=== PATIENT | male | born 1940 | race Caucasian/White ===

== ENCOUNTER 2022-02-25 06:45 | Inpatient (IN) | payer MEDICARE, OTHER, SELFPAY ==
[2022-02-25] VITALS (9 sets, daily range): BP systolic 101–146; BP diastolic 52–77; PULSE 67–121; RESP 15–23; TEMP 36.2–37.2; O2SAT 92–100; BMI 24.8
--- NOTE | ~2022-02-25 | XR_ITS ---
EXAMINATION: XR lumbar puncture diagnostic DATE: 02/26/2022 09:57 INDICATION: Altered mental status TECHNIQUE: The procedure including the risks and benefits was discussed with the patient's Christine Luna. Risks discussed included spinal headache, cerebrospinal fluid leak, bleeding, and infectio n. She understood the risks and agreed to proceed. A timeout was performed to verify the patient's name, date of , and procedure to be performed. The skin overlying the L4-L5 level was prepped and draped in usual sterile fashion. Subcutaneous 1% lidocaine was used for local anesthesia. A 20 gauge spinal needle was advanced under fluoroscopic guidance. The needle was removed and the entry si te was cleaned and dressed. There were no immediate complications. A total of 1 fluoroscopic image(s ) were obtained. The amount of fluoroscopy time used during this procedure was 0.1 minutes. Along the procedure the patient was returned to the floor in unchanged condition. FINDINGS: Real-time fluoroscopy demonstrates the needle at the L4-5 level. Opening pressure was 13 cm water. (Normal range is variably defined as 6-20 cm water and up to 25 cm water in obese patients. P ressure >25 cm water is one of the modified Dandy criteria for idiopathic intracranial hypertension). 15 mL of clear, colorless fluid was collected in 4 tubes. IMPRESSION: 1. Successful fluoro-guided lumbar puncture with normal opening pressure of 13 cm water. Reviewed, dictated and finalized at location A.
--- NOTE | ~2022-02-25 | CT_ITS ---
EXAMINATION: CTA chest PE protocol DATE: 02/25/2022 08:48 INDICATION: COVID positive. Elevated d-dimer. TECHNIQUE: Computed tomography (CT) pulmonary angiogram of the chest was performed with 100 mL Omnipa que-350 intravenous contrast. Additional 3D reconstructions utilizing coronal maximum intensity proje ction (MIP) were performed. Automated exposure control and iterative reconstruction technique were em ployed. The dose-length product was 458.88 mGy-cm. COMPARISON: None FINDINGS: Excellent contrast opacification of the pulmonary arteries. There is moderate streak artifact from de nse contrast in the superior vena cava and right atrium. Mild scattered respiratory motion artifact. Together this mildly decreases sensitivity in some of the smaller subsegmental pulmonary arteries. No definite pulmonary embolism. Small lung volumes. Irregular septal lines with groundglass opacities a nd honeycombing in both lungs with peripheral and lower lung predominance. No pleural effusion or pne umothorax. Mild cardiomegaly. No pericardial effusion. Atherosclerotic coronary artery calcifications . Thoracic aorta is normal in caliber with no dissection. Mild mediastinal and right hilar lymphadeno krista which is most likely reactive. Diffuse edematous wall thickening of the esophagus consistent wi th esophagitis. Mild thoracic spondylosis. IMPRESSION: 1. No pulmonary embolism. Sensitivity mildly decreased in some of the smaller subsegmental pulmonary arteries due to combination of respiratory motion and streak artifact. 2. Small lung volumes with peripheral and lower lung predominant lung disease with honeycombing which appears to been present but to a significantly lesser degree on the CT abdomen dated 11/20/2016 consi stent with progression of usual interstitial pneumonia (UIP) pattern chronic interstitial lung diseas e. Differential includes mild pulmonary edema or pneumonia superimposed over the prior chronic lung d isease. 3. Prominent diffuse esophageal wall thickening consistent with esophagitis. The most likely either i nfectious or due to reflux. 4. Mild cardiomegaly. Reviewed, dictated and finalized at location A. IMPRESSION: 1. No pulmonary embolism. Sensitivity mildly decreased in some of the smaller s ubsegmental pulmonary arteries due to combination of respiratory motion and str eak artifact. 2. Small lung volumes with peripheral and lower lung predominant lung disease w ith honeycombing which appears to been present but to a significantly lesser de gree on the CT abdomen dated 11/20/2016 consistent with progression of usual int erstitial pneumonia (UIP) pattern chronic interstitial lung disease. Differenti al includes mild pulmonary edema or pneumonia superimposed over the prior chron ic lung disease. 3. Prominent diffuse esophageal wall thickening consistent with esophagitis. Th e most likely either infectious or due to reflux. 4. Mild cardiomegaly.
--- NOTE | ~2022-02-25 | CT_ITS ---
EXAMINATION: CT brain wo con DATE: 02/25/2022 08:48 INDICATION: Head trauma TECHNIQUE: Computed tomography (CT) of the head was performed without intravenous contrast. Sagittal and coronal reconstructions were performed. The mA was adjusted according to patient size. Iterative reconstruction technique was employed. The dose-length product was 605.33 mGy-cm. COMPARISON: None FINDINGS: Small left frontal scalp hematoma. No fracture. No acute intracranial hemorrhage, acute infarction or abnormal extra axial fluid collection. There is moderate scattered white matter hypoattenuation cons istent with chronic small vessel ischemic disease. Symmetric prominence of the sulci and ventricles c onsistent with moderate age-appropriate diffuse cerebral volume loss. No mass/mass effect. Mild scatt ered mucosal thickening throughout the paranasal sinuses with minimal dependently layering fluid in t he left maxillary and left sphenoid sinuses. The orbits and mastoid air cells are normal. IMPRESSION: 1. No fracture or acute intracranial process. 2. Age-related changes including moderate diffuse volume loss and moderate scattered white matter hyp oattenuation consistent with chronic small vessel ischemic disease. Reviewed, dictated and finalized at location A. IMPRESSION: 1. No fracture or acute intracranial process. 2. Age-related changes including moderate diffuse volume loss and moderate scat tered white matter hypoattenuation consistent with chronic small vessel ischemi c disease.
--- NOTE | ~2022-02-25 | XR_ITS ---
EXAMINATION: XR chest 1V portable DATE: 02/25/2022 07:57 INDICATION: COVID positive. Weakness. TECHNIQUE: frontal view of the chest was obtained. COMPARISON: None FINDINGS: Small lung volumes. Bilateral mild reticular and patchy groundglass opacities with peripheral predomi nance in the right lung and in the left lower lung zone and left suprahilar region. No pleural effusi on or pneumothorax. The cardiomediastinal silhouette is within normal limits for AP technique. IMPRESSION: 1. Small lung volumes with scattered mild patchy bilateral opacities which could represent pneumonia or, atelectasis/scarring, pulmonary edema or some combination thereof. Reviewed, dictated and finalized at location A. IMPRESSION: 1. Small lung volumes with scattered mild patchy bilateral opacities which coul d represent pneumonia or, atelectasis/scarring, pulmonary edema or some combina tion thereof.
--- NOTE | 2022-02-25 07:01 | ECG_ITS ---
Measurements Intervals [place] Rate: 116 P: 30 WV: 198 QRS: -40 QRSD: 70 T: 34 QT: 429 QTc: 598 Interpretive Statements SINUS TACHYCARDIA CONSIDER ANTERIOR INFARCT, AGE INDETERMINATE CONSIDER INFERIOR INFARCT, AGE INDETERMINATE BORDERLINE ST-T WAVE ABNORMALITY- HIGH LATERAL LEADS BASELINE ARTIFACT- I, II, AVR, AVL ABNORMAL ECG Electronically Signed On 02-25-2022 7:58:19 CDT by Иван Teixeira D.O.
--- NOTE | 2022-02-25 07:09 | ED.WEAKNESS ---
HPI - Weakness General Chief complaint: Weakness Stated complaint: fall, generalized weakness, covid + Time Seen by Provider: 02/25/22 07:06 History of Present Illness HPI Narrative: Patient is an 81-year-old male with history of Alzheimer's dementia presenting to the emergency department for evaluation of weakness. Patient was diagnosed with COVID by at home testing 2 days ago by his who is also COVID-positive. Reportedly, states that he has been unable to ambulate over the past 48 hours. She states at baseline he is able to ambulate and complete most of his ADLs although his dementia is quite severe. Thus, patient is currently oriented to person, can identify this is a hospital but is unable to provide any additional history. Patient's states that he has been reporting significant sore throat, congestion. He has been taking Mucinex without much improvement in his symptoms. No nausea, vomiting but significantly decreased oral intake over the past 2 days. Patient is vaccinated for COVID per . No diarrhea. She does report a low-grade fever at times. Related Data Allergies Allergy/AdvReac Type Severity Reaction Status Date / Time No Known Allergies Allergy Verified 02/25/22 06:55 Review of Systems Review of Systems: Limited secondary to dementia [facility] Social History Social History (Updated 02/25/22 @ 08:01 by Katerina Laboy MD) Smoking status: Never smoker Alcohol intake: never Substance use: never Living arrangements: with family Gender identity (if verbalized by the patient): Male Exam Narrative: GENERAL: Awake, alert, conversant HEAD: Normocephalic, atraumatic. EYES: PERRLA and EOMI. ENT: Nares clear, no rhinorrhea or epistaxis. Mucous membranes dry NECK: Supple. CHEST: Mildly tachypneic, no respiratory distress, coarse breath sounds with upper airway rhonchi bilaterally HEART: Tachycardic rate, sinus rhythm ABDOMEN:Non distended, non tender EXTREMITIES: Normal range of motion. No edema. SKIN: Pale, warm, dry, no rash. NEURO:No focal deficits. Alert and oriented x2 Course Vital Signs Vital signs: Vital Signs Temperature 37.2 C 02/25/22 06:44 Pulse Rate 121 H 02/25/22 06:44 Respiratory Rate 23 H 02/25/22 06:44 Blood Pressure 138/77 02/25/22 06:44 Pulse Oximetry 97 02/25/22 06:44 Oxygen Delivery Room Air 02/25/22 06:44 Temperature 37.2 C 02/25/22 06:44 Pulse Rate 67 02/25/22 10:40 Respiratory Rate 16 02/25/22 10:40 Blood Pressure 105/52 L 02/25/22 10:40 Pulse Oximetry 98 02/25/22 10:40 Oxygen Delivery Room Air 02/25/22 06:59 MDM - Weakness MDM Narrative Medical decision making narrative: Patient presenting for evaluation of weakness in the setting of recent COVID diagnosis. At the time of assessment, patient is tachycardic and mildly tachypneic. Patient with coarse breath sounds without significant crackles or wheezing. Differential includes COVID-pneumonia, bacterial pneumonia, PE, electrolyte derangement, rhabdomyolysis, urinary tract infection. IV access obtained and labs are drawn. Patient was given small amount IV fluids, does not appear fluid overloaded on exam. Laboratory results show no lactic acidosis, there is leukocytosis present. He is meeting SIRS criteria without focus of bacterial infection found at this point. Patient with potential bilateral opacities consistent with viral COVID illness. That would not warrant antibiotics. Patient is not hypoxic or having any severe respiratory distress or significantly increased work of breathing. CTA obtained to evaluate for PE of which there is none. There is chronic appearing changes of interstitial lung disease based on CT imaging. Currently awaiting urinalysis, will check a CK to ensure no component of rhabdomyolysis. Plan for admission, PT/OT consultation given decreased mobility. CK not critically elevated. BNP not consistent with acute CHF. This is all likely s
[2022-02-25 07:40] LABS: Basophils Absolute Auto 0.1 K/mm3 (0.0-0.1); Basophils Percent Auto 0.4 % (0.2-1.2); Hematocrit 41.1 % (42.0-52.0); Immature Granulocyte Absolute 0.07 K/mm3 (0.00-0.031); Immature Granulocyte Percent A 0.5 % (0-0.5); Lymphocytes Absolute Auto 2.86 K/mm3 (0.9-3.2); Lymphocytes Percent Auto 20.1 % (18.3-44.2); Mean Corpuscular HGB Conc 31.6 g/dl (32-36); Mean Corpuscular Hemoglobin 30.1 pg (26-34); Mean Corpuscular Volume 95.1 fl (80-100); Mean Platelet Volume 9.7 fl (7.4-10.4); Monocytes Percent Auto 13.7 % (2.6-8.5); Neutrophils Absolute Auto 9.3 K/mm3 (1.3-6.7); Neutrophils Percent Auto 65.3 % (45.5-73.1); Platelet Count Result 211 k/mm3 (150-375); Red Blood Count 4.32 M/mm3 (4.6-6.20); Red Cell Distribution Width 13.4 % (11.5-14.5); White Blood Count 14.3 K/mm3 (4.5-10.0)
[2022-02-25] MEDS: SODIUM CHLORIDE 0.9% IV 500 ML 999 ML IV CONT (07:40)
[2022-02-25 07:49] LABS: INR 1.1; Prothrombin Time 13.4 Seconds (11.1-14.7)
[2022-02-25 07:50] LABS: Partial Thromboplastin Time 34.7 SECONDS (22.3-36.8)
[2022-02-25 07:54] LABS: Alanine Aminotransferase 27 U/L (6-50); Albumin Level 4.3 g/dL (3.5-5.1); Alkaline Phosphatase 106 U/L (38-126); Anion Gap 11 mmol/L (8-16); Aspartate Amino Transferase 35 U/L (17-59); Bilirubin,Total 0.8 mg/dL (0.2-1.3); Blood Urea Nitrogen 15 mg/dL (9-20); Calcium 9.4 mg/dL (8.4-10.2); Carbon Dioxide 26 mmol/L (22-30); Chloride 100 mmol/L (98-107); Estimated CRCL calculation 65 ml/min; Estimated Glomerular Filt Rate > 60; Glucose 198 mg/dL (65-110); Potassium 3.9 mmol/L (3.4-5.0); Sodium 137 mmol/L (137-145)
[2022-02-25 08:05] LABS: Troponin I 0.018 ng/mL (0.000-0.034)
[2022-02-25 08:08] LABS: D Dimer 0.79 ug/mL (<0.48)
[2022-02-25 08:23] LABS: Thyroid Stimulating Hormone 0.601 uIU/mL (0.465-4.680)
--- NOTE | 2022-02-25 09:13 | PC.NURSE ---
I did not do the EKG on this pt. EMR Tracker was not recording EKG as done (check lai was red). Charted so tracker would recognize it as being done.
--- NOTE | 2022-02-25 10:23 | PM.IMHP ---
H&P: HPI History of Present Illness Date/Time: 02/25/22 10:23 Chief Complaint: weakness Narrative: 81M with a past medical history of dementia, benign prostatic hyperplasia, diabetes and hyperlipidemia who presents to the emergency department for confusion and weakness. Patient has dementia and is confused so history obtained from , Rona Payne. Last couple of days patient has been incoherent and had sore throat. Patient has not been eating very much. Also had sudden onset urinary incontinence. says he was also not able to get up and walk. Had a fall this morning and was unable to get him up so she brought him to the emergency department. reports patient has had cough, sore throat, rhinorrhea, weakness and confusion. Says patient has been taking off his clothes and she has been unable to get the patient to take his medicine. At baseline, patient is only alert and oriented to self. He walks and can feed himself. He requires assistance to bathe. says he already sounds better after a call she had from the patient. says the patient has never been sick and his diabetes, cholesterol and prostate medication are prescribed by the geriatric psychiatrist at the [place]. PCP follows at the [place] and sees a geriatric psychiatrist. Had Pfizer COVID19 vaccine and had 1 additional dose. also had pfizer vaccine and 1 additional dose. She is at home COVID19 positive. is MPOA and wishes for the patient to be DNR. In the ED, COVID19 positive, leukocytosis 14.3, UA + glucose and ketones, D-dimer elevated --->CTA chest no PE. BNP 350. 1LNS given. 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 Smoking status: Former smoker Tobacco type: cigarettes Alcohol intake: never Substance use: never Living arrangements: with family Gender identity (if verbalized by the patient): Male Spiritual care concerns: No Meds Home Medications and Allergies Home Medications Medication Instructions Recorded Confirmed Type Cyanacobalamin 1,000 mg BYMOUTH DAILY 02/25/22 02/25/22 History atorvastatin 20 mg BYMOUTH HS 02/25/22 02/25/22 History cholecalciferol (vitamin D3) 25 25 mcg PO HS 02/25/22 02/25/22 History mcg (1,000 unit) tablet (Vitamin D3) empagliflozin 25 mg BYMOUTH DAILY 02/25/22 02/25/22 History finasteride 5 mg BYMOUTH 02/25/22 02/25/22 History gabapentin 100 mg tablet 100 mg PO BID 02/25/22 02/25/22 History insulin glargine 100 unit/mL 7 unit subcut 02/25/22 02/25/22 History subcutaneous cartridge metformin 1,000 mg tablet 1,000 mg PO BID 02/25/22 02/25/22 History Allergies Allergy/AdvReac Type Severity Reaction Status Date / Time No Known Allergies Allergy Verified 02/25/22 13:17 Vital Signs Vital Signs - 24 hr 02/25/22 06:44 02/25/22 06:59 02/25/22 07:01 Temperature 99.0 F Pulse Rate 121 H 111 H Respiratory Rate 23 H 18 Blood Pressure 138/77 146/71 H Pulse Oximetry 97 99 97 Oxygen Delivery Room Air Room Air 02/25/22 10:00 Temperature Pulse Rate 84 Respiratory Rate 15 Blood Pressure 105/52 L Pulse Oximetry 92 Oxygen Delivery Exam Narrative: GENERAL: NAD, cooperative HEENT: Normocephalic, atraumatic, anicteric, nares clear, oropharynx moist and clear, dentition ok NECK:Suppleno thyromegaly, no l
[2022-02-25 10:56] LABS: Appearance Urine Clear (Clear); Bilirubin Urine Negative (Negative); Color Urine Yellow (Yellow); Glucose Urine UA 2+ mg/dL (Negative); Ketones Urine 2+ mg/dL (Negative); Leukocyte Esterase Ur Negative LEU/UL (Negative); Nitrate Urine Negative (Negative); Protein Urine Trace mg/dL (Negative); Urobilinogen Urine 0.2 mg/dL (<2.0)
[2022-02-25 11:01] LABS: Bacteria Urine Trace /hpf; Mucus Urine Rare /lpf; RBC Urine 0-2 /hpf (0-2); WBC Urine 0-3 /hpf
[2022-02-25 11:04] LABS: Creatine Kinase 350 U/L (55-170)
[2022-02-25 11:06] LABS: Add Urine Microscopic? YES; Blood Urine Trace-Intact (Negative)
[2022-02-25 11:09] LABS: NT Pro B Type Natriuretic Pept 406 pg/mL (5-100)
[2022-02-25 12:57] LABS: SARS-CoV-2 RNA PCR Positive
--- NOTE | 2022-02-25 13:00 | ADMGEN ---
This patient, Jimmy Payne, was admitted to 3 [facility] Surg Room 333-01. Patient/family oriented to hospital policies and general routines including ID bracelet, bed and alarms, visiting hours, pain management, procedures, bathroom and other care routines, personal items, smoking policy, room service/diet, and visiting hours. Information on how to activate the Rapid Response Team has been discussed. Patient/Family are encouraged to report perceived risks to care and to ask questions if they do not understand what they are told or what they should do.
[2022-02-25] MEDS: GABAPENTIN 100 MG CAPSULE PO (18:28)
[2022-02-25 20:19] LABS: Ammonia < 9 umol/L (9-30)
[2022-02-25] MEDS: INSULIN GLARGINE (*BKC) 100 UNITS/ML 7 UNITS SUB-Q (20:38)
[2022-02-25] MEDS: cefTRIAXone 2 GM in SODIUM CHLORIDE 0.9% IV 100 ML 200 ML IVPB (20:38)
[2022-02-25] MEDS: FINASTERIDE 5 MG TABLET BY MOUTH (20:47)
[2022-02-25] MEDS: CHOLECALCIFEROL 1,000 UNITS TABLET 1000 UNITS PO (20:47)
[2022-02-25] MEDS: ATORVASTATIN 20 MG TABLET BY MOUTH (20:47)
[2022-02-25 20:48] LABS: Procalcitonin 0.3 ng/mL
[2022-02-25 21:01] LABS: HIV 1/2 Ab P24 Ag Result Negative (Negative)
[2022-02-25 21:04] LABS: Glucose Point of Care 396 mg/dl (65-105)
[2022-02-25] MEDS: AMPICILLIN 2 GM/NS 100 ML 2 GM/100 ML BAG IVPB (22:43)
[2022-02-26] VITALS (8 sets, daily range): BP systolic 105–139; BP diastolic 49–69; PULSE 50–72; RESP 15–18; TEMP 35.6–36.2; O2SAT 95–100
--- NOTE | 2022-02-26 | ECHO_ITS ---
Patient Info Name: Jimmy Payne Age: 81 years : 1940 Gender: Male Ht: 67 in Wt: 158 lbs BSA: 1.85 m2 HR: 59 bpm BP: 131 / 62 mmHg Heart Rhythm: Sinus Rhythm Technical Quality: Fair Exam Date: 02/26/2022 10:22 AM Exam Location: [facility] Patient Status: Inpatient Admit Date: 02/25/2022 Staff Ordering Physician: Soledad Cavanaugh MD Neon Technician: Michelle Sanders RDCS Attending Provider: Keshav Dowd MD Referring Physician: Afshan MERCADO; Exam Type: CA echo doppler color flow Study Info Indications - crackles on lung exam and cardiomegaly on cxr Complete two-dimensional, color flow and Doppler transthoracic echocardiogram is performed. Summary 1. Complete two-dimensional, color flow and Doppler transthoracic echocardiogram is performed. 2. Normal left ventricular size. Mild asymmetric septal hypertrophy with the septum of 1.4 cm2; however no evidence of outflow tract obstruction. No segmental wall motion abnormalities. Grade 2 diastolic dysfunction is present. Ejection fraction is 60%. 3. Left atrial chamber dimension is moderately enlarged. 4. There is moderate aortic valve calcification with mild aortic stenosis present. The mean gradient is 13 mmHg and the valve area is 1.4 cm2. 5. Mild pulmonary hypertension, estimated pulmonary arterial systolic pressure is 42 mmHg. 6. There is mild tricuspid valve regurgitation. 7. Probable normal sinus rhythm. Left Ventricle Left ventricular chamber dimension is normal. Left ventricular systolic function is normal, estimated at 55-60%. There is mild asymmetric septal increased left ventricular wall thickness. Left ventricular septal wall motion is normal. The left ventricular diastolic function is grade II diastolic dysfunction. Right Ventricle Right ventricular chamber dimension is normal. Right ventricular systolic function is normal. Left Atria Left atrial chamber dimension is moderately enlarged. Right Atria Right atrial chamber dimension is normal. Aortic Valve The aortic valve is trileaflet. There is mild aortic valve sclerosis. There is no aortic valve stenosis. There is trace aortic valve regurgitation. There is moderate aortic valve calcification with mild aortic stenosis present. The mean gradient is 13 mmHg and the valve area is 1.4 cm2. Pulmonic Valve The pulmonic valve is normal. There is no pulmonic valve stenosis. There is trace pulmonic regurgitation. Mitral Valve The mitral valve has thickened leaflets. There is no mitral valve stenosis. There is trace mitral valve regurgitation. Tricuspid Valve The tricuspid valve leaflets are normal. There is no significant tricuspid valve stenosis. There is mild tricuspid valve regurgitation. Mild pulmonary hypertension, estimated pulmonary arterial systolic pressure is 42 mmHg. Pericardium/Pleural The pericardium appears normal. There is no pericardial effusion. Inferior Vena Cava Normal inferior vena cava with >50% collapse upon inspiration consistent with Empty right atrial pressure, 10 mmHg. Aorta The aortic root size at the sinus of Valsalva is normal. The prox ascending aorta size is normal. Left Ventricular Outflow Tract Name Value Normal LVOT 2D
[2022-02-26] MEDS: AMPICILLIN 2 GM/NS 100 ML 2 GM/100 ML BAG IVPB ×5 (02:19→22:07)
[2022-02-26] MEDS: ACETAMINOPHEN 325 MG TABLET 650 MG PO (02:23)
[2022-02-26 07:01] LABS: Basophils Percent Auto 0.2 % (0.2-1.2); Hematocrit 36.7 % (42.0-52.0); Hemoglobin 11.9 g/dL (14.0-18.0); Immature Granulocyte Absolute 0.08 K/mm3 (0.00-0.031); Immature Granulocyte Percent A 0.6 % (0-0.5); Lymphocytes Absolute Auto 1.12 K/mm3 (0.9-3.2); Lymphocytes Percent Auto 8.8 % (18.3-44.2); Mean Corpuscular HGB Conc 32.4 g/dl (32-36); Mean Corpuscular Hemoglobin 30.5 pg (26-34); Mean Corpuscular Volume 94.1 fl (80-100); Monocytes Absolute Auto 0.5 K/mm3 (0.1-0.6); Monocytes Percent Auto 3.7 % (2.6-8.5); Neutrophils Absolute Auto 11.1 K/mm3 (1.3-6.7); Neutrophils Percent Auto 86.7 % (45.5-73.1); Platelet Count Result 202 k/mm3 (150-375); Red Cell Distribution Width 13.2 % (11.5-14.5); White Blood Count 12.8 K/mm3 (4.5-10.0)
[2022-02-26 07:05] LABS: Anion Gap 9 mmol/L (8-16); Blood Urea Nitrogen 23 mg/dL (9-20); Calcium 8.5 mg/dL (8.4-10.2); Carbon Dioxide 25 mmol/L (22-30); Chloride 102 mmol/L (98-107); Creatine Kinase 504 U/L (55-170); Estimated CRCL calculation 68 ml/min; Estimated Glomerular Filt Rate > 60; Glucose 276 mg/dL (65-110); Potassium 3.9 mmol/L (3.4-5.0); Sodium 136 mmol/L (137-145)
[2022-02-26 08:10] LABS: Glucose Point of Care 256 mg/dl (65-105)
--- NOTE | 2022-02-26 08:35 | PM.IMPN ---
Progress Note: A&P Assessment and Plan (1) Confusion: Code(s): R41.0 - Disorientation, unspecified Status: Acute Assessment and Plan: Baseline oriented to self. CT head w/ no acute findings. LFTs and electrolytes normal. TSH 0.601. CK elevated, but not extremely high. No documented hypoxia. Afebrile but does have leukocytosis. UA w/ ketones c/w poor po intake otherwise unremarkable. BCX pending. Appears to have had some improvement s/p 1L ns in ED. Tmax 99 on arrival. Lactic acid 2.0. Leukocytosis improved. Procalcitonin low. Ammonia low. LP completed - studies pending. -Continue vancomycin, ampicillin, ceftriaxone, acyclovir, dexamethasone -Will consult Neurology if no improvement (2) Leukocytosis: Code(s): D72.829 - Elevated white blood cell count, unspecified Status: Acute Assessment and Plan: BCX pending. Tmax 99.0. UA unremarkable. CT chest with consistent with progression of usual interstitial pneumonia pattern chronic interstitial lung disease, no pulmonary embolism and mild cardiomegaly. -See plan above (3) COVID-19: Code(s): U07.1 - COVID-19 Status: Acute Assessment and Plan: Adequate saturation on room air. Will monitor. (4) Hyperlipidemia: Onset Date: ~02/25/22 Code(s): E78.5 - Hyperlipidemia, unspecified Status: Acute Assessment and Plan: Takes statin at home. Continue statin. (5) Dementia: Code(s): F03.90 - Unspecified dementia without behavioral disturbance Status: Acute Assessment and Plan: Oriented to self at baseline but follows instructions and can feed himself. Slightly improved today. May get MRI brain and consult Neurology if not improved more tomorrow. (6) Weakness: Code(s): R53.1 - Weakness Status: Acute Assessment and Plan: May be related to acute illness. CK elevation worsened this morning. -1L bolus -Repeat CK in the morning (7) Diabetes: Code(s): E11.9 - Type 2 diabetes mellitus without complications Status: Acute Assessment and Plan: reports last a1c just over 8.0. Takes glargine 7 units qhs at home plus empagliflozin and Metformin. -POC TIDWM -High dose SSI -Increased glargine to 8 units qhs -Scheduled lispro 4 units TIDWM (8) Elevated brain natriuretic peptide (BNP) level: Code(s): R79.89 - Other specified abnormal findings of blood chemistry Status: Acute Assessment and Plan: Echocardiogram read pending. (9) BPH (benign prostatic hyperplasia): Code(s): N40.0 - Benign prostatic hyperplasia without lower urinary tract symptoms Status: Acute Assessment and Plan: Takes finasteride at home. Continue home medication. Additional Plan Enoxaparin dvt prophylaxis MPOA Rona Payne DNR Subjective Date/time seen: 02/26/22 08:35 Patient denies shortness of breath, difficulty breathing, chest pain. Has a cough noted during rounds. Patient denies abdominal pain. Says his birthday is 1940. Review of Systems Respiratory: Respiratory: Reports cough and Denies dyspnea Gastrointestinal: Gastrointestinal: Reports abdominal pain Exam Narrative: GENERAL: NAD, cooperative HEENT: Normocephalic, atraumatic, anicteric, nares clear, oropharynx moist and clear, dentition ok NECK:Supple CV: Normal S1, S2, RRR, No MRG RESP: No wheezes or rhonchi Abdomen: Soft, non-tender, non-distended, +BS EXTREMITIES: Warm and well perfused, no clubbing, cyanosis, or edema. SKIN: warm, dry and intact. NEURO:CN 2-12 grossly intact. Confused. Alert - knows name and today Objective Data Vital Signs Vital Signs: Vital Signs - 24 hr 02/25/22 10:00 02/25/22 10:40 02/25/22 11:51 Temperature Pulse Rate 84 67 Respiratory Rate 15 16 Blood Pressure 105/52 L 105/52 L Pulse Oximetry 92 98 Oxygen Delivery
[2022-02-26] MEDS: cefTRIAXone 2 GM in SODIUM CHLORIDE 0.9% IV 100 ML 200 ML IVPB (10:22)
[2022-02-26 10:32] LABS: Glucose CSF 164 mg/dL (40-70); Total Protein CSF 62 mg/dL (12-60)
[2022-02-26 11:51] LABS: Glucose Point of Care 405 mg/dl (65-105)
[2022-02-26 12:18] LABS: CSF source CSF
[2022-02-26 12:19] LABS: Appearance CSF Clear (Clear); Color CSF Colorless (Colorless); Lymphocytes CSF 63 % (40-80); Monocytes CSF 37 % (15-45); Nucleated Cell CSF 15 /uL (0-5); Red Blood Cell CSF 0 (0-2)
[2022-02-26] MEDS: GABAPENTIN 100 MG CAPSULE PO ×2 (12:21→17:12)
[2022-02-26] MEDS: EMPAGLIFLOZIN 25 MG TABLET BY MOUTH (12:21)
[2022-02-26] MEDS: CYANOCOBALAMIN 1,000 MCG TABLET 1000 MCG BY MOUTH (12:21)
[2022-02-26] MEDS: INSULIN HUMAN REGULAR (*BKC) 100 UNITS/ML 10 UNITS SUB-Q (12:22)
[2022-02-26] MEDS: INSULIN ASPART (*BKC) 100 UNITS/ML SUB-Q ×2 (12:22→17:06)
[2022-02-26 16:39] LABS: Glucose Point of Care 458 mg/dl (65-105)
[2022-02-26] MEDS: INSULIN GLARGINE (*BKC) 100 UNITS/ML 8 UNITS SUB-Q (21:03)
[2022-02-26] MEDS: ATORVASTATIN 20 MG TABLET BY MOUTH (21:03)
[2022-02-26] MEDS: CHOLECALCIFEROL 1,000 UNITS TABLET 1000 UNITS PO (21:03)
[2022-02-26] MEDS: FINASTERIDE 5 MG TABLET BY MOUTH (21:03)
[2022-02-26 21:21] LABS: Glucose Point of Care 329 mg/dl (65-105)
[2022-02-26] MEDS: OLANZapine 5 MG TABLET PO (21:43)
[2022-02-26] MEDS: cefTRIAXone 2 GM in SODIUM CHLORIDE 0.9% IV 100 ML IVPB (23:06)
[2022-02-27] MEDS: AMPICILLIN 2 GM/NS 100 ML 2 GM/100 ML BAG IVPB ×7 (00:05→20:38)
[2022-02-27] MEDS: OLANZapine 10 MG INJ VIAL IM (01:14)
[2022-02-27] MEDS: WATER, STERILE FOR INJECTION 10 ML VIAL XX (01:21)
[2022-02-27 06:22] LABS: Basophils Percent Auto 0.2 % (0.2-1.2); Hemoglobin 11.6 g/dL (14.0-18.0); Immature Granulocyte Percent A 0.8 % (0-0.5); Lymphocytes Percent Auto 7.6 % (18.3-44.2); Mean Corpuscular HGB Conc 30.5 g/dl (32-36); Mean Corpuscular Hemoglobin 30.1 pg (26-34); Mean Corpuscular Volume 98.7 fl (80-100); Mean Platelet Volume 9.9 fl (7.4-10.4); Monocytes Absolute Auto 0.5 K/mm3 (0.1-0.6); Monocytes Percent Auto 3.6 % (2.6-8.5); Neutrophils Absolute Auto 11.5 K/mm3 (1.3-6.7); Neutrophils Percent Auto 87.8 % (45.5-73.1); Platelet Count Result 209 k/mm3 (150-375); Red Blood Count 3.85 M/mm3 (4.6-6.20); Red Cell Distribution Width 13.1 % (11.5-14.5); White Blood Count 13.1 K/mm3 (4.5-10.0)
[2022-02-27 06:32] LABS: Anion Gap 8 mmol/L (8-16); Blood Urea Nitrogen 30 mg/dL (9-20); Calcium 8.3 mg/dL (8.4-10.2); Carbon Dioxide 24 mmol/L (22-30); Chloride 101 mmol/L (98-107); Creatine Kinase 535 U/L (55-170); Estimated CRCL calculation 54 ml/min; Estimated Glomerular Filt Rate > 60; Glucose 286 mg/dL (65-110); Potassium 3.8 mmol/L (3.4-5.0); Sodium 133 mmol/L (137-145)
[2022-02-27 08:00] VITALS: O2SAT 100
[2022-02-27 08:11] LABS: Glucose Point of Care 240 mg/dl (65-105)
--- NOTE | 2022-02-27 08:46 | PM.IMPN ---
Progress Note: A&P Assessment and Plan (1) Confusion: Code(s): R41.0 - Disorientation, unspecified Status: Acute Assessment and Plan: Baseline oriented to self. CT head w/ no acute findings. LFTs and electrolytes normal. TSH 0.601. CK elevated, but not extremely high. No documented hypoxia. Afebrile but does have leukocytosis. UA w/ ketones c/w poor po intake otherwise unremarkable. BCX pending. Appears to have had some improvement s/p 1L ns in ED. Tmax 99 on arrival. Lactic acid 2.0. Leukocytosis improved. Procalcitonin low. Ammonia low. LP completed - studies pending. -Continue vancomycin, ampicillin, ceftriaxone, acyclovir, dexamethasone -Neurology consulted (2) Leukocytosis: Code(s): D72.829 - Elevated white blood cell count, unspecified Status: Acute Assessment and Plan: Tmax 99.0. UA unremarkable. CT chest with consistent with progression of usual interstitial pneumonia pattern chronic interstitial lung disease, no pulmonary embolism and mild cardiomegaly. BCX with no growth. CSF gram stain with a few WBC and no organisms. Fungal culture and stain with no organisms so far. -See plan above (3) COVID-19: Code(s): U07.1 - COVID-19 Status: Acute Assessment and Plan: Adequate saturation on room air. Will monitor. (4) Hyperlipidemia: Onset Date: ~02/25/22 Code(s): E78.5 - Hyperlipidemia, unspecified Status: Acute Assessment and Plan: Takes statin at home. Continue statin. (5) Dementia: Code(s): F03.90 - Unspecified dementia without behavioral disturbance Status: Acute Assessment and Plan: Oriented to self at baseline but follows instructions and can feed himself. Slightly improved today. Neurology consulted. MRI brain ordered. (6) Weakness: Code(s): R53.1 - Weakness Status: Acute Assessment and Plan: Elevated but only slightly compared to yesterday. -IVF x 12 hours at 125cc/hr -Repeat CK in the morning (7) Diabetes: Code(s): E11.9 - Type 2 diabetes mellitus without complications Status: Acute Assessment and Plan: reports last a1c just over 8.0. Takes glargine 7 units qhs at home plus empagliflozin and Metformin. Improved. Will continue to monitor. -POC TIDWM -High dose SSI -Increased glargine to 8 units qhs -Scheduled lispro 4 units TIDWM (8) Elevated brain natriuretic peptide (BNP) level: Code(s): R79.89 - Other specified abnormal findings of blood chemistry Status: Acute Assessment and Plan: Echo with EF 60% with grade II diastolic dysfunction, mild aortic stenosis. HFpEF. (9) BPH (benign prostatic hyperplasia): Code(s): N40.0 - Benign prostatic hyperplasia without lower urinary tract symptoms Status: Acute Assessment and Plan: Takes finasteride at home. Continue home medication. Additional Plan Enoxaparin dvt prophylaxis MPOA Rona Payne DNR Subjective Date/time seen: 02/27/22 08:46 Patient denies having any pain. Denies abdominal pain. Denies difficulty breathing, chest pain, shortness of breath, headache, vision changes. Review of Systems Eyes: Eyes: Denies blurry vision Cardiovascular: Cardiovascular: Denies chest pain Respiratory: Respiratory: Denies dyspnea Neurologic: Reports confusion and Denies headache(s) Exam Narrative: GENERAL: NAD, cooperative HEENT: Normocephalic, atraumatic, anicteric NECK:Supple CV: Normal S1, S2, RRR, No MRG RESP: No wheezes or rhonchi Abdomen: Soft, non-tender, non-distended, +BS EXTREMITIES: Warm and well perfused, no clubbing, cyanosis, or edema. SKIN: warm, dry and intact. NEURO:CN 2-12 grossly intact. Confused. Alert - knows name and . Objective Data Vital Signs Vital Signs: Vital Signs - 24 hr 02/26/22 09:15 02/26/22 09:58 02/26/22 10:52 Abdulaziz
[2022-02-27] MEDS: SODIUM CHLORIDE 0.9% IV 1,000 ML 125 ML IV CONT (09:15)
[2022-02-27] MEDS: INSULIN ASPART (*BKC) 100 UNITS/ML SUB-Q ×6 (09:20→17:31)
[2022-02-27] MEDS: ENOXAPARIN 40 MG/0.4 ML SYRINGE SUB-Q (09:21)
[2022-02-27 11:32] LABS: Glucose Point of Care 222 mg/dl (65-105)
[2022-02-27 12:00] VITALS: BP 142/76; PULSE 53; RESP 18; TEMP 36.6; O2SAT 100
[2022-02-27] MEDS: cefTRIAXone 2 GM in SODIUM CHLORIDE 0.9% IV 100 ML 200 ML IVPB ×2 (12:53→23:43)
[2022-02-27] MEDS: OLANZapine 5 MG TABLET PO ×2 (12:53→20:40)
[2022-02-27 16:00] VITALS: BP 129/66; PULSE 86; RESP 16; TEMP 36.3; O2SAT 100
[2022-02-27 16:55] LABS: Glucose Point of Care 252 mg/dl (65-105)
[2022-02-27] MEDS: GABAPENTIN 100 MG CAPSULE PO (17:27)
[2022-02-27 19:59] VITALS: BP 116/75; PULSE 65; RESP 20; TEMP 35.6; O2SAT 98
[2022-02-27] MEDS: INSULIN GLARGINE (*BKC) 100 UNITS/ML 8 UNITS SUB-Q (20:35)
[2022-02-27] MEDS: CHOLECALCIFEROL 1,000 UNITS TABLET 1000 UNITS PO (20:40)
[2022-02-27] MEDS: ATORVASTATIN 20 MG TABLET BY MOUTH (20:40)
[2022-02-27] MEDS: FINASTERIDE 5 MG TABLET BY MOUTH (20:40)
[2022-02-27 21:15] LABS: Glucose Point of Care 244 mg/dl (65-105)
[2022-02-28] VITALS: BP 136/91; PULSE 84; RESP 18; TEMP 35.6; O2SAT 95
[2022-02-28] MEDS: SODIUM CHLORIDE 0.9% IV 1,000 ML 125 ML IV CONT (01:43)
[2022-02-28] MEDS: AMPICILLIN 2 GM/NS 100 ML 2 GM/100 ML BAG IVPB ×2 (01:44→05:07)
[2022-02-28 04:00] VITALS: BP 129/61; PULSE 42; RESP 16; TEMP 35.7; O2SAT 99
[2022-02-28 08:00] VITALS: BP 106/36; PULSE 87; RESP 16; TEMP 36; O2SAT 98
--- NOTE | 2022-02-28 08:15 | PM.IMPN ---
Progress Note: A&P Assessment and Plan (1) Confusion: Code(s): R41.0 - Disorientation, unspecified Status: Acute Assessment and Plan: Baseline oriented to self. CT head w/ no acute findings. LFTs and electrolytes normal. TSH 0.601. CK elevated, but not extremely high. No documented hypoxia. Afebrile but does have leukocytosis. UA w/ ketones c/w poor po intake otherwise unremarkable. BCX pending. Appears to have had some improvement s/p 1L ns in ED. Tmax 99 on arrival. Lactic acid 2.0. Leukocytosis improved. Procalcitonin low. Ammonia low. LP completed with cultures. Patient discussed with Neurology. If cultures remain negative for 72 hours, mathew palacio discharge patient home without antibiotics. -Disontinue vancomycin, ampicillin, ceftriaxone, acyclovir, dexamethasone -Neurology consulted - recommended starting seroquel 25 qhs -Haloperidol added for PRN (2) Leukocytosis: Code(s): D72.829 - Elevated white blood cell count, unspecified Status: Acute Assessment and Plan: Tmax 99.0. UA unremarkable. CT chest with consistent with progression of usual interstitial pneumonia pattern chronic interstitial lung disease, no pulmonary embolism and mild cardiomegaly. BCX with no growth. CSF gram stain with a few WBC and no organisms. Fungal culture and stain with no organisms so far. This has remained around 12, likely due to the dexamethasone. Plan as noted above and will monitor. (3) COVID-19: Code(s): U07.1 - COVID-19 Status: Acute Assessment and Plan: Adequate saturation on room air. Will monitor. (4) Hyperlipidemia: Onset Date: ~02/25/22 Code(s): E78.5 - Hyperlipidemia, unspecified Status: Acute Assessment and Plan: Takes statin at home. Continue statin. (5) Dementia: Code(s): F03.90 - Unspecified dementia without behavioral disturbance Status: Acute Assessment and Plan: Oriented to self at baseline but follows instructions and can feed himself. Slightly improved today. Neurology consulted. See plan as noted above. (6) Weakness: Code(s): R53.1 - Weakness Status: Acute Assessment and Plan: Elevated but only slightly compared to yesterday. Gave IVF for 12 hours. Will recheck in the morning. (7) Diabetes: Code(s): E11.9 - Type 2 diabetes mellitus without complications Status: Acute Assessment and Plan: reports last a1c just over 8.0. Takes glargine 7 units qhs at home plus empagliflozin and Metformin. Dexamethasone discontinued. Will need to decrease glargine back to 7 units and discontinue scheduled lispro in the morning. -POC TIDWM -High dose SSI -Glargine to 8 units qhs -Scheduled lispro 4 units TIDWM (8) Elevated brain natriuretic peptide (BNP) level: Code(s): R79.89 - Other specified abnormal findings of blood chemistry Status: Acute Assessment and Plan: Echo with EF 60% with grade II diastolic dysfunction, mild aortic stenosis. HFpEF. (9) BPH (benign prostatic hyperplasia): Code(s): N40.0 - Benign prostatic hyperplasia without lower urinary tract symptoms Status: Acute Assessment and Plan: Takes finasteride at home. Continue home medication. Additional Plan Enoxaparin dvt prophylaxis MPOA Rona Payne DNR Subjective Date/time seen: 02/28/22 13:15 Patient denies having any pain. Denies shortness of breath or difficulty breathing. Review of Systems Respiratory: Respiratory: Denies dyspnea Exam Narrative: GENERAL: NAD, cooperative HEENT: Normocephalic, atraumatic, anicteric NECK:Supple CV: Normal S1, S2, RRR, No MRG RESP: No wheezes or rhonchi Abdomen: Soft, non-tender, non-distended, +BS EXTREMITIES: Warm and well perfused, no clubbing, cyanosis, or edema. SKIN: warm, dry and intact. NEURO:CN 2-12 grossly intact. Confus
[2022-02-28 08:19] LABS: Glucose Point of Care 189 mg/dl (65-105)
[2022-02-28 08:52] LABS: Basophils Percent Auto 0.1 % (0.2-1.2); Hematocrit 36.6 % (42.0-52.0); Immature Granulocyte Absolute 0.16 K/mm3 (0.00-0.031); Immature Granulocyte Percent A 1.3 % (0-0.5); Lymphocytes Absolute Auto 1.01 K/mm3 (0.9-3.2); Lymphocytes Percent Auto 8.4 % (18.3-44.2); Mean Corpuscular HGB Conc 32.8 g/dl (32-36); Mean Corpuscular Hemoglobin 30.2 pg (26-34); Mean Platelet Volume 9.8 fl (7.4-10.4); Monocytes Absolute Auto 0.5 K/mm3 (0.1-0.6); Monocytes Percent Auto 4.4 % (2.6-8.5); Neutrophils Absolute Auto 10.3 K/mm3 (1.3-6.7); Neutrophils Percent Auto 85.8 % (45.5-73.1); Platelet Count Result 214 k/mm3 (150-375); Red Blood Count 3.98 M/mm3 (4.6-6.20); Red Cell Distribution Width 13.2 % (11.5-14.5)
[2022-02-28 09:07] LABS: Anion Gap 7 mmol/L (8-16); Blood Urea Nitrogen 29 mg/dL (9-20); Calcium 8.1 mg/dL (8.4-10.2); Carbon Dioxide 24 mmol/L (22-30); Chloride 106 mmol/L (98-107); Estimated CRCL calculation 68 ml/min; Estimated Glomerular Filt Rate > 60; Glucose 197 mg/dL (65-110); Potassium 3.7 mmol/L (3.4-5.0); Sodium 137 mmol/L (137-145)
[2022-02-28] MEDS: INSULIN ASPART (*BKC) 100 UNITS/ML SUB-Q ×4 (09:07→18:43)
[2022-02-28] MEDS: OLANZapine 5 MG TABLET PO (09:08)
[2022-02-28] MEDS: ENOXAPARIN 40 MG/0.4 ML SYRINGE SUB-Q (09:08)
[2022-02-28] MEDS: EMPAGLIFLOZIN 25 MG TABLET BY MOUTH (09:08)
[2022-02-28] MEDS: CYANOCOBALAMIN 1,000 MCG TABLET 1000 MCG BY MOUTH (09:08)
[2022-02-28] MEDS: GABAPENTIN 100 MG CAPSULE PO (09:08)
--- NOTE | 2022-02-28 10:39 | WPDNEURCNPN ---
Assessment and Plan Assessment and plan (1) COVID-19: Code(s): U07.1 - COVID-19 Status: Acute (2) Alzheimers disease: Code(s): G30.9 - Alzheimer's disease, unspecified; F02.80 - Dementia in other diseases classified elsewhere without behavioral disturbance Status: Acute (3) THERAPY AIDE infection: Code(s): G96.89 - Other specified disorders of central nervous system; B99.9 - Unspecified infectious disease Status: Acute Plan ongoing dementia with history of being positive for the COVID and negative CT scan for the acute bleed or stroke spinal fluid were abnormal being treated for the triple antibiotics and antiviral will wait for the culture in the meantime treatment will be continued as such Consult date: 02/28/22 Time Seen: 09:00 HPI: Jimmy Payne is a 81 year old male admitted to the hospital through the emergency room for the complaints of generalized weakness resulting in the fall and history of COVID positive in addition to ongoing history of underlying Alzheimer's dementia. Reportedly diagnosed to have COVID at home testing 2 days ago by his who is also COVID positive reportedly he was unable to ambulate over the last 48 hours though at a baseline he is able to ambulate and complete most of his ADLs though he does have severe dementia he was only oriented to person and being in the hospital reportedly he is not allergic to any medication, his never a smoker never a drinker, Petterchak examination was generally non remarkable vital signs were stable routine lab was also normal in addition was chest x-ray documented small lung volumes with patchy bilateral opacities in addition to the negative CT scan of the head and chest CTA documented no pulmonary embolism but mild cardiomegaly on his routine lab D-dimer was 0.[address] scan negative except the age related changes, lumbar puncture was done in the emergency room opening pressure was 13, CSF glucose 164 protein 62 and 15 total nucleated cells, cultures are pending and patient is receiving ampicillin, acyclovir ceftriaxone and vancomycin Review of Systems Review of Systems: All systems reviewed & are unremarkable except as noted in HPI and below PMFSH Past Medical History Medical History (Updated 02/28/22 @ 10:47 by Shree Marin MD) BPH (benign prostatic hyperplasia) Dementia Diabetes Hyperlipidemia (~02/25/22) Surgical History Surgical History H/O rotator cuff surgery Family History Family History Sibling Cancer Father Diabetes mellitus Social History Social History (Updated 02/25/22 @ 18:48 by Soledad Cavanaugh MD) Social History: Was in the [employer] for 8 years and 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 Smoking status: Former smoker Tobacco type: cigarettes Alcohol intake: never Substance use: never Living arrangements: with family Gender identity (if verbalized by the patient): Male Spiritual care concerns: No Meds Home Medications and Allergies Home Medications Medication Instructions Recorded Confirmed Type Cyanacobalamin 1,000 mg [facility] 02/25/22 02/25/22 History atorvastatin 20 mg [facility] 02/25/22 02/25/22 History cholecalciferol (vitamin D3) 25 25 mcg PO HS 02/25/22 02/25/22 History mcg (1,000 unit) tablet (Vitamin D3) empagliflozin 25 mg [facility] 02/25/22 02/25/22 History finasteride 5 mg [facility] 02/25/22 02/25/22 History gabapentin 100 mg tablet 100 mg PO BID 02/25/22 02/25/22 History insulin glargine 100 unit/mL 7 unit subcut 02/25/22 02/25/22 History subcutaneous cartridge metformin 1,000 mg tablet 1,000 mg PO BID 02/25/22 02/25/22 History Allergies Allergy/AdvReac Type Severity Reaction Status Date / Time No Known Allergies Allergy Verified 02/25/22 13:17 Vital Signs Vital Signs - 24 hr 02/27/22 12:00 02/27/22 16:00 02/27/22
[2022-02-28 12:00] VITALS: BP 152/61; PULSE 61; RESP 18; TEMP 36.6; O2SAT 99
[2022-02-28 12:35] LABS: Glucose Point of Care 262 mg/dl (65-105)
[2022-02-28] MEDS: HALOPERIDOL 1 MG TABLET PO ×2 (14:37→22:40)
[2022-02-28 15:18] LABS: CMV DNA Quant PCR IU/mL Not Detected; Cytomegalovirus DNA Quant PCR Not Detected log IU/mL; Cytomegalovirus DNA Source Plasma
[2022-02-28 16:00] VITALS: BP 147/61; PULSE 75; RESP 18; TEMP 36.4; O2SAT 98
[2022-02-28 17:30] LABS: Glucose Point of Care 194 mg/dl (65-105)
[2022-02-28 17:30] LABS: Epstein Barr Virus DNA PCR Not Detected (Not Detected); Source Epstein Barr Virus CSF
[2022-02-28 18:31] LABS: Herpes Simplex Type 1 DNA PCR Not Detected (Not Detected); Herpes Simplex Type 2 DNA PCR Not Detected (Not Detected)
[2022-02-28 20:00] VITALS: BP 144/66; PULSE 57; RESP 18; TEMP 36.3; O2SAT 95
[2022-02-28 20:20] LABS: Cryptococcus Antigen Not Detected (Not Detected); Cryptococcus Specimen Source CSF
[2022-02-28] MEDS: FINASTERIDE 5 MG TABLET BY MOUTH (20:53)
[2022-02-28] MEDS: QUEtiapine FUMARATE 25 MG TABLET PO (20:53)
[2022-02-28] MEDS: ATORVASTATIN 20 MG TABLET BY MOUTH (20:54)
[2022-02-28] MEDS: CHOLECALCIFEROL 1,000 UNITS TABLET 1000 UNITS PO (20:54)
[2022-02-28] MEDS: INSULIN GLARGINE (*BKC) 100 UNITS/ML 8 UNITS SUB-Q (21:09)
[2022-02-28 21:12] LABS: Glucose Point of Care 130 mg/dl (65-105)
[2022-03-01 08:00] VITALS: BP 148/58; PULSE 110; RESP 16; TEMP 36.1; O2SAT 91
[2022-03-01 08:21] LABS: Glucose Point of Care 89 mg/dl (65-105)
[2022-03-01] MEDS: ENOXAPARIN 40 MG/0.4 ML SYRINGE SUB-Q (09:24)
[2022-03-01] MEDS: GABAPENTIN 100 MG CAPSULE PO ×2 (09:24→17:30)
[2022-03-01] MEDS: EMPAGLIFLOZIN 25 MG TABLET BY MOUTH (09:25)
[2022-03-01] MEDS: CYANOCOBALAMIN 1,000 MCG TABLET 1000 MCG BY MOUTH (09:25)
[2022-03-01 11:30] LABS: Glucose Point of Care 66 mg/dl (65-105)
[2022-03-01 11:56] LABS: VDRL Quantitative CSF Nonreactive (Nonreactive)
[2022-03-01 12:00] VITALS: BP 139/59; PULSE 55; RESP 16; TEMP 35.7; O2SAT 97
--- NOTE | 2022-03-01 12:10 | PM.IMPN ---
Progress Note: A&P Assessment and Plan (1) Confusion: Code(s): R41.0 - Disorientation, unspecified Status: Acute Assessment and Plan: Baseline oriented to self. CT head w/ no acute findings. LFTs and electrolytes normal. TSH 0.601. CK elevated, but not extremely high. No documented hypoxia. Afebrile but does have leukocytosis. UA w/ ketones c/w poor po intake otherwise unremarkable. BCX pending. Appears to have had some improvement s/p 1L ns in ED. Tmax 99 on arrival. Lactic acid 2.0. Leukocytosis improved. Procalcitonin low. Ammonia low. LP completed with cultures. Patient discussed with Neurology. If cultures remain negative for 72 hours, mathew palacio discharge patient home without antibiotics. -Disontinue vancomycin, ampicillin, ceftriaxone, acyclovir, dexamethasone -Neurology consulted - recommended starting seroquel 25 qhs -Haloperidol added for PRN (2) Leukocytosis: Code(s): D72.829 - Elevated white blood cell count, unspecified Status: Acute Assessment and Plan: Tmax 99.0. UA unremarkable. CT chest with consistent with progression of usual interstitial pneumonia pattern chronic interstitial lung disease, no pulmonary embolism and mild cardiomegaly. BCX with no growth. CSF gram stain with a few WBC and no organisms. Fungal culture and stain with no organisms so far. This has remained around 12, likely due to the dexamethasone. Plan as noted above and will monitor. (3) COVID-19: Code(s): U07.1 - COVID-19 Status: Acute Assessment and Plan: Adequate saturation on room air. Will monitor. (4) Hyperlipidemia: Onset Date: ~02/25/22 Code(s): E78.5 - Hyperlipidemia, unspecified Status: Acute Assessment and Plan: Takes statin at home. Continue statin. (5) Dementia: Code(s): F03.90 - Unspecified dementia without behavioral disturbance Status: Acute Assessment and Plan: Oriented to self at baseline but follows instructions and can feed himself. Slightly improved today. Neurology consulted. See plan as noted above. (6) Weakness: Code(s): R53.1 - Weakness Status: Acute Assessment and Plan: Elevated but only slightly compared to yesterday. Gave IVF for 12 hours. Will recheck in the morning. (7) Diabetes: Code(s): E11.9 - Type 2 diabetes mellitus without complications Status: Acute Assessment and Plan: reports last a1c just over 8.0. Takes glargine 7 units qhs at home plus empagliflozin and Metformin. Dexamethasone discontinued. Will need to decrease glargine back to 7 units and discontinue scheduled lispro in the morning. -POC TIDWM -High dose SSI -Glargine to 8 units qhs -Scheduled lispro 4 units TIDWM (8) Elevated brain natriuretic peptide (BNP) level: Code(s): R79.89 - Other specified abnormal findings of blood chemistry Status: Acute Assessment and Plan: Echo with EF 60% with grade II diastolic dysfunction, mild aortic stenosis. HFpEF. (9) BPH (benign prostatic hyperplasia): Code(s): N40.0 - Benign prostatic hyperplasia without lower urinary tract symptoms Status: Acute Assessment and Plan: Takes finasteride at home. Continue home medication. Additional Plan 03/01/2022 Patient's CSF is negative so far. Plan is to continue current treatment. COVID is asymptomatic at present. Increase activity as tolerated. Possible discharge on Thursday. Enoxaparin dvt prophylaxis MPOA Rona Payne DNR Subjective Date/time seen: 03/01/22 12:10 Patient was seen during the morning rounds today. Feeling slightly better. No shortness of breath or chest pain. No abdominal pain, nausea, no vomiting. Mood stable. Review of Systems Review of Systems: ROS unobtainable: Yes unobtainable due to mental status Constitutional: Constitutional: Den
[2022-03-01 14:48] LABS: Basophils Percent Auto 0.1 % (0.2-1.2); Eosinophils Absolute Auto 0.1 K/mm3 (0-0.3); Eosinophils Percent Auto 0.6 % (0-4.4); Hematocrit 37.8 % (42.0-52.0); Hemoglobin 12.2 g/dL (14.0-18.0); Immature Granulocyte Absolute 0.07 K/mm3 (0.00-0.031); Immature Granulocyte Percent A 0.7 % (0-0.5); Lymphocytes Absolute Auto 1.93 K/mm3 (0.9-3.2); Lymphocytes Percent Auto 19.7 % (18.3-44.2); Mean Corpuscular HGB Conc 32.3 g/dl (32-36); Mean Corpuscular Hemoglobin 30.3 pg (26-34); Mean Corpuscular Volume 93.8 fl (80-100); Mean Platelet Volume 9.9 fl (7.4-10.4); Monocytes Absolute Auto 0.8 K/mm3 (0.1-0.6); Monocytes Percent Auto 7.6 % (2.6-8.5); Neutrophils Percent Auto 71.3 % (45.5-73.1); Platelet Count Result 232 k/mm3 (150-375); Red Blood Count 4.03 M/mm3 (4.6-6.20); Red Cell Distribution Width 13.3 % (11.5-14.5); White Blood Count 9.8 K/mm3 (4.5-10.0)
[2022-03-01 15:00] LABS: JC Polyoma Virus DNA, QL Plasma; JC Polyoma Virus Source Not Detected (Not Detected)
[2022-03-01 15:23] LABS: Anion Gap 0 mmol/L (8-16); Blood Urea Nitrogen 19 mg/dL (9-20); Calcium 8.2 mg/dL (8.4-10.2); Carbon Dioxide 32 mmol/L (22-30); Chloride 106 mmol/L (98-107); Creatine Kinase 716 U/L (55-170); Estimated CRCL calculation 68 ml/min; Estimated Glomerular Filt Rate > 60; Glucose 87 mg/dL (65-110); Potassium 3.8 mmol/L (3.4-5.0); Sodium 138 mmol/L (137-145)
[2022-03-01 16:00] VITALS: BP 145/51; PULSE 54; RESP 16; TEMP 36.8; O2SAT 96
[2022-03-01 17:05] LABS: Varicella IgG Antibody >4000.00 Index (>=165.00); Varicella IgM Antibody <=0.90 (<=0.90)
[2022-03-01 17:30] LABS: Glucose Point of Care 86 mg/dl (65-105)
[2022-03-01 20:00] VITALS: BP 153/89; PULSE 98; RESP 20; TEMP 36.7; O2SAT 94
[2022-03-01] MEDS: CHOLECALCIFEROL 1,000 UNITS TABLET 1000 UNITS PO (21:28)
[2022-03-01] MEDS: FINASTERIDE 5 MG TABLET BY MOUTH (21:28)
[2022-03-01] MEDS: ATORVASTATIN 20 MG TABLET BY MOUTH (21:28)
[2022-03-01] MEDS: HALOPERIDOL 1 MG TABLET PO (21:29)
[2022-03-01] MEDS: QUEtiapine FUMARATE 25 MG TABLET PO (21:29)
[2022-03-01] MEDS: INSULIN GLARGINE (*BKC) 100 UNITS/ML 8 UNITS SUB-Q (21:31)
[2022-03-01 22:17] LABS: Glucose Point of Care 184 mg/dl (65-105)
[2022-03-02 04:00] VITALS: PULSE 56; RESP 16; TEMP 36; O2SAT 96
[2022-03-02 09:45] VITALS: BP 134/70; PULSE 70; RESP 14; TEMP 36.4; O2SAT 99
--- NOTE | 2022-03-02 09:48 | PM.IMPN ---
Progress Note: A&P Assessment and Plan (1) Confusion: Code(s): R41.0 - Disorientation, unspecified Status: Acute Assessment and Plan: Baseline oriented to self. CT head w/ no acute findings. LFTs and electrolytes normal. TSH 0.601. CK elevated, but not extremely high. No documented hypoxia. Afebrile but does have leukocytosis. UA w/ ketones c/w poor po intake otherwise unremarkable. BCX pending. Appears to have had some improvement s/p 1L ns in ED. Tmax 99 on arrival. Lactic acid 2.0. Leukocytosis improved. Procalcitonin low. Ammonia low. LP completed with cultures. Patient discussed with Neurology. If cultures remain negative for 72 hours, mathew palacio discharge patient home without antibiotics. -Disontinue vancomycin, ampicillin, ceftriaxone, acyclovir, dexamethasone -Neurology consulted - recommended starting seroquel 25 qhs -Haloperidol added for PRN (2) Leukocytosis: Code(s): D72.829 - Elevated white blood cell count, unspecified Status: Acute Assessment and Plan: Tmax 99.0. UA unremarkable. CT chest with consistent with progression of usual interstitial pneumonia pattern chronic interstitial lung disease, no pulmonary embolism and mild cardiomegaly. BCX with no growth. CSF gram stain with a few WBC and no organisms. Fungal culture and stain with no organisms so far. This has remained around 12, likely due to the dexamethasone. Plan as noted above and will monitor. (3) COVID-19: Code(s): U07.1 - COVID-19 Status: Acute Assessment and Plan: Adequate saturation on room air. Will monitor. (4) Hyperlipidemia: Onset Date: ~02/25/22 Code(s): E78.5 - Hyperlipidemia, unspecified Status: Acute Assessment and Plan: Takes statin at home. Continue statin. (5) Dementia: Code(s): F03.90 - Unspecified dementia without behavioral disturbance Status: Acute Assessment and Plan: Oriented to self at baseline but follows instructions and can feed himself. Slightly improved today. Neurology consulted. See plan as noted above. (6) Weakness: Code(s): R53.1 - Weakness Status: Acute Assessment and Plan: Elevated but only slightly compared to yesterday. Gave IVF for 12 hours. Will recheck in the morning. (7) Diabetes: Code(s): E11.9 - Type 2 diabetes mellitus without complications Status: Acute Assessment and Plan: reports last a1c just over 8.0. Takes glargine 7 units qhs at home plus empagliflozin and Metformin. Dexamethasone discontinued. Will need to decrease glargine back to 7 units and discontinue scheduled lispro in the morning. -POC TIDWM -High dose SSI -Glargine to 8 units qhs -Scheduled lispro 4 units TIDWM (8) Elevated brain natriuretic peptide (BNP) level: Code(s): R79.89 - Other specified abnormal findings of blood chemistry Status: Acute Assessment and Plan: Echo with EF 60% with grade II diastolic dysfunction, mild aortic stenosis. HFpEF. (9) BPH (benign prostatic hyperplasia): Code(s): N40.0 - Benign prostatic hyperplasia without lower urinary tract symptoms Status: Acute Assessment and Plan: Takes finasteride at home. Continue home medication. Additional Plan 03/01/2022 Patient's CSF is negative so far. Plan is to continue current treatment. COVID is asymptomatic at present. 03/02/2022 Patient is clinically much better. plan is to continue current treatment. Increase activity as tolerated. Possible discharge on Thursday. Enoxaparin dvt prophylaxis MPOA Rona Payne DNR Subjective Date/time seen: 03/02/22 09:48 Patient is feeling much better today. No shortness of breath or chest pain. No abdominal pain, nausea, no vomiting. Mood stable. Review of Systems Review of Systems: ROS unobtainable: Yes unobtainable due to
[2022-03-02] MEDS: ENOXAPARIN 40 MG/0.4 ML SYRINGE SUB-Q (10:12)
[2022-03-02] MEDS: CYANOCOBALAMIN 1,000 MCG TABLET 1000 MCG BY MOUTH (10:13)
[2022-03-02] MEDS: HALOPERIDOL 1 MG TABLET PO (10:13)
[2022-03-02] MEDS: GABAPENTIN 100 MG CAPSULE PO ×2 (10:13→19:42)
[2022-03-02] MEDS: EMPAGLIFLOZIN 25 MG TABLET BY MOUTH (10:13)
[2022-03-02 11:51] LABS: Glucose Point of Care 109 mg/dl (65-105)
[2022-03-02 16:00] VITALS: BP 138/64; PULSE 55; RESP 16; TEMP 35.9; O2SAT 89
[2022-03-02 17:18] LABS: Glucose Point of Care 70 mg/dl (65-105)
[2022-03-02 20:00] VITALS: BP 128/103; PULSE 104; RESP 18; TEMP 36.2; O2SAT 94
[2022-03-02] MEDS: QUEtiapine FUMARATE 25 MG TABLET PO (23:55)
[2022-03-02] MEDS: CHOLECALCIFEROL 1,000 UNITS TABLET 1000 UNITS PO (23:55)
[2022-03-02] MEDS: FINASTERIDE 5 MG TABLET BY MOUTH (23:55)
[2022-03-02] MEDS: ATORVASTATIN 20 MG TABLET BY MOUTH (23:55)
[2022-03-02] MEDS: INSULIN GLARGINE (*BKC) 100 UNITS/ML 8 UNITS SUB-Q (23:59)
[2022-03-03 00:15] LABS: Glucose Point of Care 164 mg/dl (65-105)
[2022-03-03] MEDS: HALOPERIDOL 1 MG TABLET PO (02:52)
[2022-03-03 08:00] VITALS: BP 160/61; PULSE 59; RESP 16; TEMP 36.4; O2SAT 100
[2022-03-03 08:26] LABS: Glucose Point of Care 55 mg/dl (65-105)
--- NOTE | 2022-03-03 08:54 | PM.DS ---
DS: Admitting Diagnosis Discharge Date 03/03/22 Admitting Diagnosis Altered Mental Status DS: Discharge Diagnosis Discharge Diagnosis (1) Confusion: Code(s): R41.0 - Disorientation, unspecified Status: Acute Assessment and Plan: Baseline oriented to self. CT head w/ no acute findings. LFTs and electrolytes normal. TSH 0.601. CK elevated, but not extremely high. No documented hypoxia. Afebrile but does have leukocytosis. UA w/ ketones c/w poor po intake otherwise unremarkable. BCX pending. Appears to have had some improvement s/p 1L ns in ED. Tmax 99 on arrival. Lactic acid 2.0. Leukocytosis improved. Procalcitonin low. Ammonia low. LP completed with cultures. Patient discussed with Neurology and seroquel was added. Dexamethasone, ceftiraxone, ampicillin and acyclovir were discontinue on 02/28/22. CSF cultures had now growth and patient continues to improve with addition of seroquel. -Continue seroquel 25 qhs -Discharge to home (2) Leukocytosis: Code(s): D72.829 - Elevated white blood cell count, unspecified Status: Acute Assessment and Plan: Tmax 99.0. UA unremarkable. CT chest with consistent with progression of usual interstitial pneumonia pattern chronic interstitial lung disease, no pulmonary embolism and mild cardiomegaly. BCX with no growth. CSF gram stain with a few WBC and no organisms. Fungal culture and stain with no organisms so far. This resolved after discontinuation of dexamethasone. Plan as noted above. (3) COVID-19: Code(s): U07.1 - COVID-19 Status: Acute Assessment and Plan: Adequate saturation on room air. Will monitor. (4) Hyperlipidemia: Onset Date: ~02/25/22 Code(s): E78.5 - Hyperlipidemia, unspecified Status: Acute Assessment and Plan: Takes statin at home. Continue statin. (5) Dementia: Code(s): F03.90 - Unspecified dementia without behavioral disturbance Status: Acute Assessment and Plan: Oriented to self at baseline but follows instructions and can feed himself. Patient impulsivity (removing clothes and constantly getting out of bed) improved with seroquel. This was continued for discharge. (6) Weakness: Code(s): R53.1 - Weakness Status: Acute Assessment and Plan: Elevated but only slightly compared to yesterday. Gave IVF but it continued to rise and was not checked over the weekend. Will recheck today and if downtrending will discharge. (7) Diabetes: Code(s): E11.9 - Type 2 diabetes mellitus without complications Status: Acute Assessment and Plan: reports last a1c just over 8.0. Takes glargine 7 units qhs at home plus empagliflozin and Metformin. Dexamethasone discontinued. Will need to decrease glargine back to 7 units and discontinue scheduled lispro in the morning. Resume home diabetes medications and doses for discharge. (8) Elevated brain natriuretic peptide (BNP) level: Code(s): R79.89 - Other specified abnormal findings of blood chemistry Status: Acute Assessment and Plan: Echo with EF 60% with grade II diastolic dysfunction, mild aortic stenosis. HFpEF. (9) BPH (benign prostatic hyperplasia): Code(s): N40.0 - Benign prostatic hyperplasia without lower urinary tract symptoms Status: Acute Assessment and Plan: Takes finasteride at home. Continue home medication. DS: Summary Hospital Course Reason for hospitalization: Acute confusion Hospital Course: 81M with a past medical history of dementia, benign prostatic hyperplasia, diabetes and hyperlipidemia who presented to the emergency department for confusion and weakness.? Patient baseline is alert and oriented to self but generally follow instructions and takes his medications when his give them to him. Per the , for 2-3 days prior to presentation, dev
[2022-03-03 09:44] LABS: Glucose Point of Care 159 mg/dl (65-105)
[2022-03-03] MEDS: CYANOCOBALAMIN 1,000 MCG TABLET 1000 MCG BY MOUTH (09:47)
[2022-03-03] MEDS: GABAPENTIN 100 MG CAPSULE PO ×2 (09:48→17:40)
[2022-03-03] MEDS: ENOXAPARIN 40 MG/0.4 ML SYRINGE SUB-Q (09:48)
[2022-03-03 11:27] LABS: Glucose Point of Care 319 mg/dl (65-105)
[2022-03-03] MEDS: EMPAGLIFLOZIN 25 MG TABLET BY MOUTH (11:45)
[2022-03-03] MEDS: INSULIN ASPART (*BKC) 100 UNITS/ML SUB-Q (11:45)
[2022-03-03 12:00] VITALS: BP 128/58; PULSE 78; RESP 16; TEMP 36.4; O2SAT 100
[2022-03-03 16:00] VITALS: BP 134/64; PULSE 69; RESP 16; TEMP 36.2; O2SAT 100
[2022-03-03 16:27] LABS: Glucose Point of Care 149 mg/dl (65-105)
[2022-03-03 19:19] LABS: Creatine Kinase 166 U/L (55-170)
[2022-03-05 18:21] LABS: Coccidioides Ab to F Ag (IgG) NEGATIVE; Coccidioides Ab to TP Ag (IgM) NEGATIVE
== END 2022-03-03 18:50 | disposition home or self-care (01) | DRG 178 ==
LOC: ANHED 09:59 → ANH3MEDSUR 10:26
PROVIDERS: Admitting Provider Chiropractor; Emergency Provider Emergency Medicine; Visit Provider Family Medicine
DX: U07.1 COVID-19 (principal); J84.9 Interstitial pulmonary disease, unspecified; G30.9 Alzheimer's disease, unspecified; F02.80 Dementia in other diseases classified elsewhere, unspecified severity, without behavioral disturbance, psychotic disturbance, mood disturbance, and anxiety; R41.0 Disorientation, unspecified; D72.829 Elevated white blood cell count, unspecified; R53.1 Weakness; N40.0 Benign prostatic hyperplasia without lower urinary tract symptoms; E11.9 Type 2 diabetes mellitus without complications; E78.5 Hyperlipidemia, unspecified; R79.89 Other specified abnormal findings of blood chemistry; W19.XXXA Unspecified fall, initial encounter; Z66 Do not resuscitate; Z79.4 Long term (current) use of insulin; Z79.84 Long term (current) use of oral hypoglycemic drugs; Z79.899 Other long term (current) drug therapy; Z87.891 Personal history of nicotine dependence
CPT/HCPCS: 36415; 62328; 70450; 71045; 71275; 80048; 80053; 80202; 81001; 82140; 82550; 82945; 82948; 83605; 83880; 84145; 84157; 84443; 84484; 85025; 85380; 85610; 85730; 86403; 86592; 86617; 86635; 86658; 86703; 86787; 87040; 87070; 87102; 87206; 87497; 87529; 87798; 88108; 89051; 93005; 93306; 96361; 96365; 96366; 96367; 96372; 96375; 96376; 97161; 97165; 99285; A9270; C9803; G0378; G0432; J0131; J0133; J0290; J0696; J1100; J1650; J1815; J3370; J7030; J7040; Q9967; U0003; U0005

== ENCOUNTER 2023-05-03 09:13 | Observation (INO) | payer OTHER, SELFPAY ==
[2023-05-03] VITALS (11 sets, daily range): BP systolic 116–155; BP diastolic 59–136; PULSE 54–80; RESP 14–18; TEMP 36.4–36.7; O2SAT 97–100
--- NOTE | ~2023-05-03 | CT_ITS ---
EXAMINATION: CT brain wo con DATE: 05/03/2023 10:03 INDICATION: Headache TECHNIQUE: Computed tomography (CT) of the head was performed without intravenous contrast. The dose- length product was 605.33 mGy-cm. Automated exposure control and iterative reconstruction technique w ere employed. COMPARISON: CT dated 02/25/2022 FINDINGS: Generalized atrophy. There are scattered moderate periventricular and subcortical white mat ter changes, most likely related to small vessel ischemic disease (microangiopathy). There is intracr anial atherosclerosis. No acute intracranial hemorrhage, infarction, mass or mass effect. Paranasal s inuses and mastoids are pneumatized. No depressed skull fractures. IMPRESSION: 1. No acute intracranial abnormality. Reviewed, dictated and finalized at location A.
--- NOTE | ~2023-05-03 | XR_ITS ---
XR chest 1V portable 05/03/2023 10:10 Indication: Bradycardia. Headache. Dementia. Procedure: AP portable chest Comparison: 02/25/2022 Findings: There is bilateral mixed interstitial and airspace disease which is most likely chronic. No pneumothorax. No significant effusion. Shallow inspiration. Impression: 1: Minimally chronic mixed interstitial and airspace disease bilaterally. Cannot exclude acute superi mposed pneumonia. Reviewed, dictated and finalized at location A. Impression: 1: Minimally chronic mixed interstitial and airspace disease bilaterally. Canno t exclude acute superimposed pneumonia.
--- NOTE | 2023-05-03 09:29 | ECG_ITS ---
Measurements Intervals [place] Rate: 43 P: -3 WA: 187 QRS: -35 QRSD: 105 T: -11 QT: 445 QTc: 379 Interpretive Statements SINUS BRADYCARDIA WITH MARKED SINUS ARRHYTHMIA BORDERLINE R WAVE PROGRESSION, ANTERIOR LEADS BORDERLINE ST-T WAVE ABNORMALITY- INFERIOR LEADS BASELINE WANDER- V4-V5 ABNORMAL ECG COMPARED TO ECG 02/25/2022 06:52:58 SINUS BRADYCARDIA NOW PRESENT SINUS ARRHYTHMIA NOW PRESENT Electronically Signed On 05-03-2023 11:26:00 CDT by Иван Teixeira D.O.
--- NOTE | 2023-05-03 09:40 | ED.GENADULT ---
HPI - General Adult General Chief complaint: Headache Stated complaint: Weakness Time Seen by Provider: 05/03/23 09:22 History of Present Illness HPI narrative: 83-year-old male presented emergency department for evaluation of intermittent headache. Patient told his 4 times this week that he was feeling poorly and had weakness. Patient is ANO times self at baseline due to baseline dementia. Patient had an episode of bradycardia with heart rate dipped down into the 30s while he was in the ED. Patient has no prior cardiac history. Patient has no prior history of [place]. Patient is on medications for diabetes States the patient was recently started on memantine Related Data Home Medications Medication Instructions Recorded Confirmed Cyanacobalamin 1,000 mg PO DAILY 02/25/22 05/03/23 atorvastatin 20 mg [facility] 02/25/22 05/03/23 cholecalciferol (vitamin D3) 25 25 mcg PO HS 02/25/22 05/03/23 mcg (1,000 unit) tablet (Vitamin D3) empagliflozin 25 mg [facility] DAILY 02/25/22 05/03/23 finasteride 5 mg [facility] 02/25/22 05/03/23 gabapentin 100 mg tablet 200 mg PO DAILY 02/25/22 05/03/23 metformin 1,000 mg tablet 1,000 mg PO [facility]IDWM 02/25/22 05/03/23 dulaglutide 1.5 mg/0.5 mL 1.5 mg subcut WEEKLY 05/03/23 05/03/23 subcutaneous pen injector (Trulicity) memantine 5 mg tablet 5 mg PO BID 05/03/23 05/03/23 tamsulosin 0.4 mg capsule 0.4 mg PO DAILY 05/03/23 05/03/23 Allergies Allergy/AdvReac Type Severity Reaction Status Date / Time No Known Allergies Allergy Verified 05/03/23 15:59 Review of Systems Review of Systems: All systems reviewed & are unremarkable except as noted in HPI and below PMFSH Past Medical History Medical History (Updated 05/03/23 @ 15:46 by Maritza Avila PA-C) Benign prostate hyperplasia Dementia Diastolic dysfunction Echo in February 2022 showed normal LV size, mild asymmetric septal hypertrophy, no segmental wall abnormalities, grade 2 diastolic dysfunction, EF 60%. Hyperlipidemia Insulin dependent type 2 diabetes mellitus Interstitial lung disease UIP pattern chronic interstitial lung disease noted on chest CT 02/2022. Kidney stones Surgical History Surgical History (Updated 05/03/23 @ 13:38 by Maritza Avila PA-C) History of cataract extraction History of repair of right rotator cuff Family History Family History Sibling Cancer Father Diabetes mellitus Social History Social History (Updated 05/03/23 @ 13:39 by Maritza Avila PA-C) Social History: Surrogate medical decision maker: Rona Payne, spouse. Code status: Full code. Smoking status: Former smoker Tobacco type: cigarettes Alcohol intake: never Substance use: never Substance use type: does not use Lack of Transportation: No Lack of Food: Never True Current Housing: I Have Housing Concerned About Future Housing: No Difficulty Paying Gas/Electric Bills: No Difficulty Paying for Meds: No Currently Unemployed: No Education: High School Diploma/GED Difficulty w/ Childcare or Family Care: No Living arrangements: with family Additional living arrangements comments: Lives with in [place]. 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 Spiritual care concerns: No Exam Narrative: APPEARANCE: Well appearing, no pain, no distress, well-nourished. HEAD: normocephalic, atraumatic. EYES: PERRLA/EOMI, conjunctivae clear. NOSE: Normal no drainage NECK: Supple. No adenopathy, no masses. RESPIRATORY: Airway patent, respirations nonlabored. Clear to auscultation bilaterally, no rales, rhonchi, wheezing. CARDIOVASCULAR: Bradycardia ABDOMINAL: Soft, nontender, nondistended, normal bowel sounds MUSCULOSKELETAL: Moves all extremities. Strength/ROM intact, No edema, No calf tenderness. NEURO: Alert. Cranial nerves II
[2023-05-03 09:44] LABS: Basophils Absolute Auto 0.1 K/mm3 (0.0-0.1); Basophils Percent Auto 0.8 % (0.2-1.2); Eosinophils Absolute Auto 0.1 K/mm3 (0-0.3); Eosinophils Percent Auto 1.4 % (0-4.4); Hematocrit 41.8 % (42.0-52.0); Hemoglobin 13.7 g/dL (14.0-18.0); Immature Granulocyte Absolute 0.03 K/mm3 (0.00-0.031); Immature Granulocyte Percent A 0.4 % (0-0.5); Lymphocytes Absolute Auto 1.64 K/mm3 (0.9-3.2); Lymphocytes Percent Auto 22.3 % (18.3-44.2); Mean Corpuscular HGB Conc 32.8 g/dl (32-36); Mean Corpuscular Hemoglobin 30.9 pg (26-34); Mean Corpuscular Volume 94.4 fl (80-100); Mean Platelet Volume 9.9 fl (7.4-10.4); Monocytes Absolute Auto 0.4 K/mm3 (0.1-0.6); Monocytes Percent Auto 5.6 % (2.6-8.5); Neutrophils Absolute Auto 5.1 K/mm3 (1.3-6.7); Neutrophils Percent Auto 69.5 % (45.5-73.1); Platelet Count Result 234 k/mm3 (150-375); Red Blood Count 4.43 M/mm3 (4.6-6.20); Red Cell Distribution Width 12.6 % (11.5-14.5); White Blood Count 7.4 K/mm3 (4.5-10.0)
[2023-05-03 09:53] LABS: Alanine Aminotransferase 33 U/L (6-50); Albumin Level 4.2 g/dL (3.5-5.1); Alkaline Phosphatase 93 U/L (38-126); Anion Gap 5 mmol/L (8-16); Aspartate Amino Transferase 33 U/L (17-59); Bilirubin,Total 0.9 mg/dL (0.2-1.3); Blood Urea Nitrogen 15 mg/dL (9-20); Calcium 9.1 mg/dL (8.4-10.2); Carbon Dioxide 30 mmol/L (22-30); Chloride 102 mmol/L (98-107); Estimated CRCL calculation 73 ml/min; Estimated Glomerular Filt Rate > 60; Glucose 194 mg/dL (65-110); Potassium 4.2 mmol/L (3.4-5.0); Sodium 137 mmol/L (137-145)
[2023-05-03 11:06] LABS: Magnesium 1.7 mg/dL (1.6-2.3)
[2023-05-03 11:09] LABS: Appearance Urine Clear (Clear); Bilirubin Urine Negative (Negative); Blood Urine Negative (Negative); Color Urine Yellow (Yellow); Glucose Urine UA 3+ mg/dL (Negative); Ketones Urine Negative (Negative); Leukocyte Esterase Ur Negative LEU/UL (Negative); Nitrate Urine Negative (Negative); Protein Urine Negative (Negative); Urobilinogen Urine 0.2 mg/dL (<2.0)
[2023-05-03 11:19] LABS: Specific Grav Ur 1.045 (1.001-1.035)
[2023-05-03 11:20] LABS: Add Urine Microscopic? NO
--- NOTE | 2023-05-03 13:33 | PM.IMHP ---
H&P: HPI History of Present Illness Date/Time: 05/03/23 13:45 Chief Complaint: Weakness. Narrative: This is an 83-year-old male with dementia, insulin dependent type 2 diabetes mellitus, hyperlipidemia, diastolic dysfunction, chronic interstitial lung disease, and benign prostate hyperplasia who presented to the emergency department via private vehicle for evaluation of weakness. Due to his underlying dementia, he is not a great historian and is unable to provide an accurate history and as such a majority of the following is obtained via a review of his EMR as well as discussions with his daughter and were at bedside. According to the patient's , he has had four ?weak spells in the last several days. They seem to occur randomly and without pattern. During the spells he is pale and diaphoretic with complaints of nausea, weakness, and headache. He is so weak that he is unable to even get himself to a standing position during the episodes. The episodes are self-limiting. She is unable to quantify how long they last. Another episode happened this morning and she brought him in for evaluation. He has not had any recent illnesses and why specifically denies recent cold and flu symptoms. He does have nausea with the aforementioned episode but no associated vomiting or diarrhea. He has not complained of chest pain, shortness a breast vertigo, focal weakness, paresthesias, vision changes, or near syncope. He was afebrile on arrival to the emergency department with stable blood pressures. Pulse has been consistently in the mid 50s although it did dip down into the 30s while in the ED however there no reports of symptoms with that episode. CMP and CBC were pretty unremarkable. Brain CT showed no acute findings. Chest x-ray showed minimally chronic mixed interstitial and airspace disease bilaterally EKG shows sinus bradycardia with marked sinus arrhythmia, borderline R-wave progression anterior leads, and borderline ST T-wave abnormalities in inferior leads. He is being admitted in this setting for close monitoring and further evaluation. At the time my evaluation he is in good spirits and has no complaints aside from the fact that he is hungry. Of note, he was recently started on memantine however has been off of the drug for 4 days as was having issues getting the prescription renewed. There have been no other recent changes. Review of Systems Review of Systems: Twelve systems were reviewed. He denies current headache. No vertigo. No visual changes. No focal weakness or paresthesias. Denies chest pain shortness a breath. No current nausea. Denies vomiting and diarrhea. No dysuria. Except as documented, all other systems were reviewed and are negative. [facility] Past Medical History Medical History (Updated 05/03/23 @ 15:46 by Maritza Avila PA-C) Benign prostate hyperplasia Dementia Diastolic dysfunction Echo in February 2022 showed normal LV size, mild asymmetric septal hypertrophy, no segmental wall abnormalities, grade 2 diastolic dysfunction, EF 60%. Hyperlipidemia Insulin dependent type 2 diabetes mellitus Interstitial lung disease UIP pattern chronic interstitial lung disease noted on chest CT 02/2022. Kidney stones Surgical History Surgical History (Updated 05/03/23 @ 13:38 by Maritza Avila PA-C) History of cataract extraction History of repair of right rotator cuff Family History Family History Sibling Cancer Father Diabetes mellitus Social History Social History (Updated 05/03/23 @ 13:39 by Maritza Avila PA-C) Social History: Surrogate medical decision maker: Rona Payne, spouse. Code status: Full code. Smoking status: Former smoker Tobacco type: cigarettes Alcohol intake: never Substance use: never Living arrangements: with family Additional living arrangements comments: Lives with in [place]. Occupation/Education:
--- NOTE | 2023-05-03 15:50 | ADMGEN ---
This patient, iJmmy Payne, was admitted to Medical Room 344-01. Patient/family oriented to hospital policies and general routines including ID bracelet, bed and alarms, visiting hours, pain management, procedures, bathroom and other care routines, personal items, smoking policy, room service/diet, and visiting hours. Information on how to activate the Rapid Response Team has been discussed. Patient/Family are encouraged to report perceived risks to care and to ask questions if they do not understand what they are told or what they should do.
[2023-05-03 16:13] LABS: Influenza A QL RT-PCR Negative (Negative); Influenza B QL RT-PCR Negative (Negative); RSV RNA, RT-PCR Negative (Negative); SARS-CoV-2 RNA PCR Negative (Negative)
[2023-05-03 17:27] LABS: Glucose Point of Care 125 mg/dl (65-105)
[2023-05-03] MEDS: HALOPERIDOL LACTATE 5 MG/ML VIAL 2 MG IM (19:35)
[2023-05-03] MEDS: CHOLECALCIFEROL 1,000 UNITS TABLET 1000 UNITS PO (20:08)
[2023-05-03] MEDS: FINASTERIDE 5 MG TABLET BY MOUTH (20:08)
[2023-05-03] MEDS: ACETAMINOPHEN 325 MG TABLET 650 MG PO (20:08)
[2023-05-03] MEDS: ATORVASTATIN 20 MG TABLET BY MOUTH (20:08)
--- NOTE | 2023-05-04 | ECHO_ITS ---
Patient Info Name: Jimmy Payne Age: 83 years : 1940 Gender: Male Ht: 66 in Wt: 146 lbs BSA: 1.76 m2 HR: 54 bpm BP: 111 / 71 mmHg Heart Rhythm: Sinus Rhythm Technical Quality: Fair Exam Date: 05/04/2023 10:50 AM Exam Location: [facility] Pulmonary Exam Room: 344 Patient Status: Inpatient Admit Date: 05/03/2023 Staff Ordering Physician: Maritza Avila PA-C Drywall Boardhanger: Sarah Hsieh RDCS Attending Provider: Korina Lockwood DO Referring Physician: Austin GORDON; Exam Type: CA echo doppler color flow Study Info Indications - bradycardia Complete two-dimensional, color flow and Doppler transthoracic echocardiogram is performed. Summary 1. Complete two-dimensional, color flow and Doppler transthoracic echocardiogram is performed. 2. Left ventricular chamber dimension is normal. 3. Left ventricular systolic function is normal, estimated at 60-65%. 4. There is mildly increased left ventricular wall thickness. 5. Left ventricular septal wall motion is abnormal with septal motion related to bundle branch block. 6. The left ventricular diastolic function is grade I diastolic dysfunction. 7. There is mild aortic valve stenosis with a peak velocity of 226 cm/s, mean gradient of 12 mmHg, and aortic valve area of 1.7 cm2. 8. There is mild aortic valve regurgitation. 9. There is mild tricuspid valve regurgitation. 10. No pulmonary hypertension, estimated pulmonary arterial systolic pressure is 30 mmHg. Left Ventricle Left ventricular chamber dimension is normal. Left ventricular systolic function is normal, estimated at 60-65%. There is mildly increased left ventricular wall thickness. Left ventricular septal wall motion is abnormal with septal motion related to bundle branch block. The left ventricular diastolic function is grade I diastolic dysfunction. Right Ventricle Right ventricular chamber dimension is normal. Right ventricular systolic function is normal. Left Atria Left atrial chamber dimension is normal. Right Atria Right atrial chamber dimension is normal. Aortic Valve The aortic valve is trileaflet. There is mild aortic valve stenosis with a peak velocity of 226 cm/s, mean gradient of 12 mmHg, and aortic valve area of 1.7 cm2. There is mild aortic valve regurgitation. There is moderate aortic valve calcification. Pulmonic Valve The pulmonic valve is not well visualized. There is mild pulmonic regurgitation. Mitral Valve The mitral valve has thickened leaflets. There is mild mitral valve regurgitation. The mitral valve annulus is mildly calcified. Tricuspid Valve The tricuspid valve leaflets are normal. There is mild tricuspid valve regurgitation. No pulmonary hypertension, estimated pulmonary arterial systolic pressure is 30 mmHg. Pericardium/Pleural The pericardium appears normal. There is trivial pericardial effusion. Aorta The aortic root size at the sinus of Valsalva is normal. There is mild-moderate aortic atherosclerosis. Left Ventricular Outflow Tract Name Value Normal LVOT 2D LVOT Diameter 2.1 cm LVOT Doppler LVOT Peak Gradient 4 mmHg LVOT Mean Gradient 3 mmHg LVOT VTI
[2023-05-04 06:00] VITALS: BP 111/71; PULSE 54; RESP 16; TEMP 36.4; O2SAT 97
[2023-05-04 06:02] LABS: Hematocrit 41.5 % (42.0-52.0); Hemoglobin 13.8 g/dL (14.0-18.0); Mean Corpuscular HGB Conc 33.3 g/dl (32-36); Mean Corpuscular Hemoglobin 30.9 pg (26-34); Mean Platelet Volume 9.3 fl (7.4-10.4); Platelet Count Result 216 k/mm3 (150-375); Red Blood Count 4.46 M/mm3 (4.6-6.20); Red Cell Distribution Width 12.4 % (11.5-14.5); White Blood Count 6.4 K/mm3 (4.5-10.0)
[2023-05-04 06:12] LABS: Anion Gap 6 mmol/L (8-16); Blood Urea Nitrogen 15 mg/dL (9-20); Calcium 9.1 mg/dL (8.4-10.2); Carbon Dioxide 30 mmol/L (22-30); Chloride 100 mmol/L (98-107); Estimated CRCL calculation 71 ml/min; Estimated Glomerular Filt Rate > 60; Glucose 154 mg/dL (65-110); Magnesium 1.7 mg/dL (1.6-2.3); Potassium 4.2 mmol/L (3.4-5.0); Sodium 136 mmol/L (137-145)
[2023-05-04 06:36] LABS: Hemoglobin A1C 8.2 % (<5.7)
[2023-05-04 06:43] LABS: Glucose Point of Care 215 mg/dl (65-105)
[2023-05-04 07:47] LABS: Glucose Point of Care 133 mg/dl (65-105)
[2023-05-04 08:00] VITALS: PULSE 47
[2023-05-04] MEDS: EMPAGLIFLOZIN 25 MG TABLET BY MOUTH (08:09)
[2023-05-04] MEDS: TAMSULOSIN HCL 0.4 MG CAPSULE PO (08:09)
[2023-05-04] MEDS: CYANOCOBALAMIN 1,000 MCG TABLET 1000 MCG PO (08:09)
[2023-05-04 08:30] VITALS: BP 126/66; PULSE 111
[2023-05-04 08:34] VITALS: BP 114/67; PULSE 61
[2023-05-04 08:38] VITALS: BP 113/69; PULSE 58
--- NOTE | 2023-05-04 11:18 | PCPTNOTE ---
Attempted PT evaluation. Pt getting an echo. Will follow.
[2023-05-04 11:59] LABS: Glucose Point of Care 255 mg/dl (65-105)
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
== END 2023-05-04 13:50 | disposition home health service (06) ==
LOC: ANHED 09:51 → ANH3MEDSUR 13:42 → ANH2MED 14:18 → ANH3MED 15:05
PROVIDERS: Physician Assistant; Admitting Provider Student in an Organized Health Care Education/Training Program; Emergency Provider Emergency Medicine; Visit Provider Student in an Organized Health Care Education/Training Program
DX: R00.1 Bradycardia, unspecified (principal); R51.9 Headache, unspecified; R53.1 Weakness; F03.90 Unspecified dementia, unspecified severity, without behavioral disturbance, psychotic disturbance, mood disturbance, and anxiety; J84.9 Interstitial pulmonary disease, unspecified; E11.9 Type 2 diabetes mellitus without complications; E78.5 Hyperlipidemia, unspecified; N40.0 Benign prostatic hyperplasia without lower urinary tract symptoms; I51.89 Other ill-defined heart diseases; Z87.891 Personal history of nicotine dependence; Z79.84 Long term (current) use of oral hypoglycemic drugs; Z79.85 Long-term (current) use of injectable non-insulin antidiabetic drugs; Z20.822 Contact with and (suspected) exposure to COVID-19
CPT/HCPCS: 36415; 70450; 71045; 80048; 80053; 81003; 82948; 83036; 83735; 84443; 85025; 85027; 87637; 93005; 93306; 96372; 97161; 97165; 99285; A9270; G0378; J1630

== ENCOUNTER 2024-03-13 16:25 | Observation (INO) | payer OTHER, SELFPAY ==
[2024-03-13 16:28] VITALS: BP 112/72; PULSE 98; RESP 18; TEMP 36.6; O2SAT 99
--- NOTE | 2024-03-13 17:28 | ED.PSYCH ---
HPI - Psych General Chief Complaint: Psychiatric Symptoms Stated Complaint: dementia problems Time Seen by Provider: 03/13/24 17:15 Source: patient and family Mode of arrival: EMS Limitations: dementia History of Present Illness HPI Narrative: This is an 83-year-old male that presents to the emergency department for worsening aggression. Patient has history of dementia. His cares for him at home. Reports he has had worsening episodes of aggression. She has not been able to get him to take his medications some days. She reports today he got out of the house and was walking toward the [place]. She does not believe he is safe at home any longer. Related Data Home Medications Medication Instructions Recorded Confirmed Cyanacobalamin 1,000 mg PO DAILY 02/25/22 05/03/23 atorvastatin 20 mg [facility] 02/25/22 05/03/23 cholecalciferol (vitamin D3) 25 25 mcg PO HS 02/25/22 05/03/23 mcg (1,000 unit) tablet (Vitamin D3) [facility] 02/25/22 05/03/23 finasteride 5 mg [facility] 02/25/22 05/03/23 gabapentin 100 mg tablet 200 mg PO DAILY 02/25/22 05/03/23 metformin 1,000 mg tablet 1,000 mg PO [facility] 02/25/22 05/03/23 dulaglutide 1.5 mg/0.5 mL 1.5 mg subcut WEEKLY 05/03/23 05/03/23 subcutaneous pen injector (Trulicity) memantine 5 mg tablet 5 mg PO BID 05/03/23 05/03/23 tamsulosin 0.4 mg capsule 0.4 mg PO DAILY 05/03/23 05/03/23 Allergies Allergy/AdvReac Type Severity Reaction Status Date / Time No Known Allergies Allergy Verified 05/03/23 15:59 Review of Systems Review of Systems: ROS unobtainable: Yes unobtainable due to medical condition [facility] Past Medical History Medical History (Updated 03/13/24 @ 20:45 by Sweetie Rivas PA-C) Benign prostate hyperplasia Dementia Diastolic dysfunction Echo in February 2022 showed normal LV size, mild asymmetric septal hypertrophy, no segmental wall abnormalities, grade 2 diastolic dysfunction, EF 60%. Hyperlipidemia Insulin dependent type 2 diabetes mellitus Interstitial lung disease UIP pattern chronic interstitial lung disease noted on chest CT 02/2022. Kidney stones Surgical History Surgical History (Updated 05/03/23 @ 13:38 by Maritza Avila PA-C) History of cataract extraction History of repair of right rotator cuff Family History Family History Sibling Cancer Father Diabetes mellitus Social History Social History (Updated 05/03/23 @ 13:39 by Maritza Avila PA-C) Social History: Surrogate medical decision maker: Rona Payne, spouse. Code status: Full code. Smoking status: Former smoker Tobacco type: cigarettes Alcohol intake: never Substance use: never Substance use type: does not use Lack of Transportation: No Lack of Food: Never True Current Housing: I Have Housing Concerned About Future Housing: No Difficulty Paying Gas/Electric Bills: No Difficulty Paying for Meds: No Currently Unemployed: No Education: High School Diploma/GED Difficulty w/ Childcare or Family Care: No Living arrangements: with family Additional living arrangements comments: Lives with in [place]. 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 Spiritual care concerns: No Exam Narrative: GENERAL: Elderly, well-nourished, and in no acute distress. HEAD: Normocephalic, atraumatic. EYES: PERRLA and EOMI. ENT: Nares clear, no rhinorrhea or epistaxis. Mucous membranes moist. Oropharynx without tonsillar hypertrophy exudate or other lesions. NECK: Supple. No adenopathy or masses. CHEST: Clear to auscultation. No respiratory distress. No wheezes rales or rhonchi HEART: Regular rate and rhythm. No murmur heard. Normal peripheral pulses. EXTREMITIES: Normal range of motion. No edema. SKIN: Warm, dry, no rash. NEURO: No focal deficits. Alert and
[2024-03-13 18:35] LABS: Basophils Absolute Auto 0.1 K/mm3 (0.0-0.1); Basophils Percent Auto 0.8 % (0.2-1.2); Eosinophils Absolute Auto 0.2 K/mm3 (0-0.3); Eosinophils Percent Auto 2.5 % (0-4.4); Hematocrit 42.2 % (42.0-52.0); Hemoglobin 13.8 g/dL (14.0-18.0); Immature Granulocyte Absolute 0.02 K/mm3 (0.00-0.031); Immature Granulocyte Percent A 0.3 % (0-0.5); Lymphocytes Absolute Auto 2.64 K/mm3 (0.9-3.2); Lymphocytes Percent Auto 33.2 % (18.3-44.2); Mean Corpuscular HGB Conc 32.7 g/dl (32-36); Mean Corpuscular Hemoglobin 30.9 pg (26-34); Mean Corpuscular Volume 94.4 fl (80-100); Mean Platelet Volume 9.5 fl (7.4-10.4); Monocytes Absolute Auto 0.7 K/mm3 (0.1-0.6); Monocytes Percent Auto 8.7 % (2.6-8.5); Neutrophils Absolute Auto 4.3 K/mm3 (1.3-6.7); Neutrophils Percent Auto 54.5 % (45.5-73.1); Platelet Count Result 243 k/mm3 (150-375); Red Blood Count 4.47 M/mm3 (4.6-6.20); Red Cell Distribution Width 12.6 % (11.5-14.5)
[2024-03-13 18:44] LABS: Ethanol < 10 mg/dL (<10)
[2024-03-13 18:45] LABS: Alanine Aminotransferase 59 U/L (6-50); Albumin Level 4.3 g/dL (3.5-5.1); Alkaline Phosphatase 105 U/L (38-126); Anion Gap 8 mmol/L (4-12); Aspartate Amino Transferase 34 U/L (17-59); Bilirubin,Total 0.6 mg/dL (0.2-1.3); Blood Urea Nitrogen 18 mg/dL (9-20); Calcium 9.7 mg/dL (8.4-10.2); Carbon Dioxide 29 mmol/L (22-30); Chloride 103 mmol/L (98-107); Estimated CRCL calculation 61 ml/min; Estimated Glomerular Filt Rate > 60; Glucose 71 mg/dL (65-110); Potassium 4.3 mmol/L (3.4-5.0); Sodium 140 mmol/L (137-145)
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
[2024-03-13 19:51] LABS: Add Urine Microscopic? NO; Appearance Urine Clear (Clear); Bilirubin Urine Negative (Negative); Blood Urine Negative (Negative); Color Urine Yellow (Yellow); Glucose Urine UA 3+ mg/dL (Negative); Ketones Urine Negative (Negative); Leukocyte Esterase Ur Negative LEU/UL (Negative); Nitrate Urine Negative (Negative); Protein Urine Negative (Negative); Specific Grav Ur 1.039 (1.001-1.035); Urobilinogen Urine 0.2 mg/dL (<2.0); pH Urine 5.5 (5.0-9.0)
[2024-03-13 21:02] LABS: Amphetamine Screen Urine Negative (Negative); Barbiturate Screen Urine Negative (Negative); Benzodiazepines Screen Urine Negative (Negative); Cannabinoid Screen Urine Negative (Negative); Cocaine Screen Urine Negative (Negative); Methadone Screen Urine Negative (Negative); Opiate Screen Urine Negative (Negative); Phencyclidine Screen Urine Negative (Negative)
[2024-03-13 21:58] VITALS: BP 111/67; PULSE 68; RESP 17; TEMP 37.1; O2SAT 98
--- NOTE | 2024-03-13 23:31 | PC.NURSE ---
called and gave an update on the patient. [facility] and that [facility] would [facility] tomorrow morning before he gets a bed and transferred over.
[2024-03-14] VITALS (34 sets, daily range): BP systolic 103–169; BP diastolic 59–112; PULSE 10–98; RESP 12–20; TEMP 36.4–36.6; O2SAT 93–100
[2024-03-14] MEDS: LORazepam INJ (*CRX) 2 MG/ML VIAL 1 MG IM (00:16)
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
[2024-03-14] MEDS: LORazepam INJ (*CRX) 2 MG/ML VIAL IM ×2 (01:07→12:57)
[2024-03-14] MEDS: diphenhydrAMINE HCl INJ 50 MG/ML VIAL 25 MG IM (01:07)
--- NOTE | 2024-03-14 07:22 | PC.NURSE ---
Assumed care of pt, pt is resting w/ lights dimmed, sitter outside of door. Equal chest rise and fall. Awaiting acceptance for pt transfer.
--- NOTE | 2024-03-14 07:49 | PC.NURSE ---
Assumed care of pt, pt is resting w/ lights dimmed. Pt on tele monitor w/ VSS.
--- NOTE | 2024-03-14 08:02 | PC.NURSE ---
This RN called [facility] [place] at [phone] as requested for an update on bed assignment. Was accepted by Dr Thomas. No answer at this time, called and left message for return call. Pt continues to rest on the stretcher w/ a sitter outside the door.
--- NOTE | 2024-03-14 08:18 | PC.NURSE ---
This RN spoke to Rona Payne and gave update on [facility],
--- NOTE | 2024-03-14 12:39 | PC.NURSE ---
Pt has attempted to get out of bed several times, pt depends changed, warm blanket given, repositioned, updated, attempted to reorientate. EDP will be made aware of pt behavior. Fall alarm remains in place, sitter at bedside.
--- NOTE | 2024-03-14 13:09 | PC.NURSE ---
pt spouse called at this time. this RN gave update that we are waiting for a bed at the [facility]. pt spouse requested we call with any updates. this RN verified the correct phone number in pt chart
[2024-03-14] MEDS: LORazepam INJ (*CRX) 2 MG/ML VIAL IV PUSH (14:44)
[2024-03-14] MEDS: HALOPERIDOL LACTATE 5 MG/ML VIAL 2.5 MG IM (14:44)
--- NOTE | 2024-03-14 14:57 | PCCCNOTE ---
Addendum entered by Latasha Oreilly RN 03/15/24 08:26: Maddy's phone number is [phone] Original Note: [id number]-Called the pt's returning her call to respond to the pt's status while in the ED. [facility] 0800 today. She stated she had gone online and was touring the local [facility] [employer] this Thursday in [place]. Pt's was agreeable to CC assisting with local placement. Did call [facility] and [facility] in [place] which was more affordable. Shared their contact number for her to tour, call back and a referral can be faxed to [phone]. Also the point of contact is Maddy at [phone]. Cost being $5,100/month with 2,500 deposit of which the is aware of. Maddy stated they can have a nurse at the ED on 03/15/24 to assess the pt for admission. is wanting to tour the facility before the admission process begins of which she states she will be scheduling [email or web address]
--- NOTE | 2024-03-14 16:46 | PCCCNOTE ---
1645-Maddy with [facility] at [phone] called, stated they will be here on 03/15/24 around [phone] for an assessment for placement for the pt into facility.
--- NOTE | 2024-03-14 17:04 | PC.NURSE ---
dinner tray ordered at this time
--- NOTE | 2024-03-14 17:18 | PC.NURSE ---
Maddy from care coordination says [facility] will be here tomorrow, 03/15/24, at 10-1030 for assessment for placement [facility]
--- NOTE | 2024-03-14 17:32 | PC.NURSE ---
pt is currently sleeping. pt has equal chest rise and fall
--- NOTE | 2024-03-14 18:04 | PC.NURSE ---
pt is sleeping. pt has equal, bilateral chest rise and fall
--- NOTE | 2024-03-14 19:25 | PC.NURSE ---
Assumed care of pt from TAZ Rodriguez at this time. Pt resting in bed at this time. Pt changed. Sitter at bedside.
--- NOTE | 2024-03-14 20:00 | PM.IMHP ---
H&P: HPI History of Present Illness Date/Time: 03/14/24 20:00 Chief Complaint: Agitation Narrative: Patient is an 83-year-old male past medical history of dementia, type 2 diabetes, BPH, hyperlipidemia who presents to ED with worsening dementia. Patient was brought in by his . Apparently he has been having worsening episodes of aggression at home. He has been noncompliant with his medications and has been wandering around the home and neighborhood. Patient's is feeling overwhelmed and cannot care for patient. Patient's labs and vitals are stable, no sign of acute infection, no metabolic abnormalities to explain his increased agitation. Symptoms are likely a progression of his dementia. Patient's original plan was to transfer to the [place] with Dr. Thomas for ongoing care and likely placement. However [facility] as [facility] do not the staff at the moment. During his 27 hour stay in the ER, he had required a dose of Ativan for getting increased agitation. He currently has a sitter in the ER. In the ER, patient was having difficulty ambulation. Patient will be admitted for further management his dementia and placement to nursing facility/dementia unit. Review of Systems Review of Systems: Unable to obtain, dementia [facility] Past Medical History Medical History Benign prostate hyperplasia Dementia Diastolic dysfunction Echo in February 2022 showed normal LV size, mild asymmetric septal hypertrophy, no segmental wall abnormalities, grade 2 diastolic dysfunction, EF 60%. Hyperlipidemia Insulin dependent type 2 diabetes mellitus Interstitial lung disease UIP pattern chronic interstitial lung disease noted on chest CT 02/2022. Kidney stones Surgical History Surgical History History of cataract extraction History of repair of right rotator cuff Family History Family History Sibling Cancer Father Diabetes mellitus Social History Social History Social History: Surrogate medical decision maker: Rona Payne, spouse. Code status: Full code. Smoking status: Former smoker Tobacco type: cigarettes Alcohol intake: never Substance use: never Substance use type: does not use Lack of Transportation: No Lack of Food: Never True Current Housing: I Have Housing Concerned About Future Housing: No Difficulty Paying Gas/Electric Bills: No Difficulty Paying for Meds: No Currently Unemployed: No Education: High School Diploma/GED Difficulty w/ Childcare or Family Care: No Living arrangements: with family Additional living arrangements comments: Lives with in [place]. 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 Spiritual care concerns: No Meds Home Medications and Allergies Home Medications Medication Instructions Recorded Confirmed Type Cyanacobalamin 1,000 mg PO DAILY 02/25/22 05/03/23 History atorvastatin 20 mg [facility] 02/25/22 05/03/23 History cholecalciferol (vitamin D3) 25 25 mcg PO 02/25/22 05/03/23 History mcg (1,000 unit) tablet (Vitamin D3) empagliflozin 25 mg [facility] DAILY 02/25/22 05/03/23 History finasteride 5 mg [facility] 02/25/22 05/03/23 History gabapentin 100 mg tablet 200 mg PO DAILY 02/25/22 05/03/23 History metformin 1,000 mg tablet 1,000 mg PO BIDWM 02/25/22 05/03/23 History dulaglutide 1.5 mg/0.5 mL 1.5 mg subcut WEEKLY 05/03/23 05/03/23 History subcutaneous pen injector (Trulicity) memantine 5 mg tablet 5 mg PO BID 05/03/23 05/03/23 History tamsulosin 0.4 mg capsule 0.4 mg PO DAILY 05/03/23 05/03/23 History Allergies Allergy/AdvReac Type Severity Reaction Status Date / Time
[2024-03-14 22:27] LABS: Glucose Point of Care 166 mg/dl (65-105)
[2024-03-15 06:00] VITALS: BP 135/89; PULSE 100; RESP 14; TEMP 35.8; O2SAT 92
[2024-03-15 08:11] LABS: Glucose Point of Care 149 mg/dl (65-105)
--- NOTE | 2024-03-15 08:27 | PCCCNOTE ---
0871-Called Maddy with [facility] at [phone] to let her know of the pt's room number for the assessment today and home care associate who will be taking over his case.
[2024-03-15] MEDS: ENOXAPARIN 40 MG/0.4 ML SYRINGE SUB-Q (09:00)
--- NOTE | 2024-03-15 10:30 | PM.IMPN ---
Progress Note: A&P Assessment and Plan (1) Dementia with behavioral disturbance: Code(s): F03.918 - Unspecified dementia, unspecified severity, with other behavioral disturbance Status: Acute Assessment and Plan: 03/15/24: Patient was given Ativan and Haldol while in the ED Current orders for Ativan for agitation Case management consulted for placement (2) Episode of generalized weakness: Code(s): R53.1 - Weakness Status: Acute Assessment and Plan: 03/15/24: PT and OT ordered (3) Diabetes: Code(s): E11.9 - Type 2 diabetes mellitus without complications Status: Acute Assessment and Plan: 03/15/24: Blood sugars ranging 149-166 Hgb A1C 8.2 on 05/04/2023 Will repeat hemoglobin A1c Accu checks AC/HS Low-dose SSI ordered hypoglycemic protocol in place Diabetic diet ordered Metformin, empagliflozin, and Trulicity on hold awaiting med reconciliation (4) Alzheimers disease: Code(s): G30.9 - Alzheimer's disease, unspecified; F02.80 - Dementia in other diseases classified elsewhere, unspecified severity, without behavioral disturbance, psychotic disturbance, mood disturbance, and anxiety Status: Acute Assessment and Plan: 03/15/24: Namenda on hold awaiting med reconciliation (5) Hyperlipidemia: Code(s): E78.5 - Hyperlipidemia, unspecified Status: Acute Assessment and Plan: 03/15/24: Atorvastatin currently on hold awaiting med reconciliation (6) BPH (benign prostatic hyperplasia): Code(s): N40.0 - Benign prostatic hyperplasia without lower urinary tract symptoms Status: Acute Assessment and Plan: 03/15/24: Tamsulosin and finish tried on hold Awaiting verification of home med rec Subjective Date/time seen: 03/15/24 10:30 Interval history: Interval history: This is an 83-year-old male presented to hospital on 03/14/2024 with reports of agitation and worsening dementia. Patient was brought in by his who can no longer care for him at home. Workup in the hospital included labs which showed a normal white blood cell count of 8.0, TSH 1.45, liver and kidney function are normal, labs are essentially unremarkable. UA was obtained and showed a urine specific gravity of 1.039, 3+ urine glucose, otherwise normal. Urine drug screen was negative as well as alcohol level was less than 10. Patient is here for placement. 03/15/24: Patient denies any fever, chills, nausea, vomiting, diarrhea, abdominal pain, chest pain, shortness a breath. He is confused and only oriented x1, he is pleasant at this time and not acting out aggressively. Labs and imaging reviewed. Review of Systems Review of Systems: All systems reviewed & are unremarkable except as noted in HPI and below Constitutional: Constitutional: Reports as per HPI and Reports no additional constitutional complaints Eyes: Eyes: Reports as per HPI and Reports no additional eye complaints ENT: Reports system reviewed and no additional complaints, except as documented and Reports as per HPI Cardiovascular: Cardiovascular: Reports as per HPI and Reports no additional cardiovascular complaints Respiratory: Respiratory: Reports as per HPI and Reports no additional respiratory complaints Gastrointestinal: Gastrointestinal: Reports as per HPI and Reports no additional gastrointestinal complaints Genitourinary: Genitourinary: Reports no additional male genitourinary complaints and Reports as per HPI Musculoskeletal: Musculoskeletal: Reports no additional musculoskeletal complaints and Reports as per HPI Integumentary/Breasts: Skin/Breast: Reports system reviewed and no additional complaints, except as docu and Reports as per HPI Neurologic: Reports system reviewed and no additional complaints, except as documented and Reports as per HPI Psychiatric: Psychiatric: Reports no additional psychiatric complaints and Reports as per HPI Exam Narrative: General: In
[2024-03-15 10:51] VITALS: BMI 22.8
--- NOTE | 2024-03-15 10:54 | PC.NURSE ---
This RN called M[facility] ern[facility]/ the [facility] at [phone] for an update on bed assignment. Still no bed available. Mia advised we call back again tomorrow to check availability.
[2024-03-15 11:23] LABS: Hemoglobin A1C 11.1 % (<5.7)
[2024-03-15 12:09] LABS: Glucose Point of Care 245 mg/dl (65-105)
[2024-03-15] MEDS: INSULIN ASPART (*BKC) 100 UNITS/ML SUB-Q ×3 (12:34→22:21)
[2024-03-15 15:50] VITALS: BP 136/97; PULSE 86; RESP 16; TEMP 36.3; O2SAT 99
[2024-03-15 17:01] LABS: Glucose Point of Care 246 mg/dl (65-105)
[2024-03-15] MEDS: LORazepam INJ (*CRX) 2 MG/ML VIAL 1 MG IV PUSH ×2 (17:30→23:16)
[2024-03-15] MEDS: traZODone HCL 25 MG TABLET PO (20:09)
[2024-03-15] MEDS: ATORVASTATIN 20 MG TABLET PO (20:09)
[2024-03-15] MEDS: CHOLECALCIFEROL 1,000 UNITS TABLET 1000 UNITS PO (20:09)
[2024-03-15] MEDS: GABAPENTIN 300 MG CAPSULE PO (20:09)
[2024-03-15 20:54] LABS: Glucose Point of Care 310 mg/dl (65-105)
[2024-03-15 22:00] VITALS: BP 112/54; PULSE 73; RESP 18; TEMP 36.1; O2SAT 96
[2024-03-15] MEDS: EMPAGLIFLOZIN 25 MG TABLET BY MOUTH (22:21)
[2024-03-16 06:00] VITALS: BP 99/55; PULSE 69; RESP 18; TEMP 36.2; O2SAT 99
[2024-03-16 06:13] LABS: Basophils Absolute Auto 0.1 K/mm3 (0.0-0.1); Basophils Percent Auto 0.8 % (0.2-1.2); Eosinophils Absolute Auto 0.2 K/mm3 (0-0.3); Eosinophils Percent Auto 3.3 % (0-4.4); Hemoglobin 14.2 g/dL (14.0-18.0); Immature Granulocyte Absolute 0.02 K/mm3 (0.00-0.031); Immature Granulocyte Percent A 0.3 % (0-0.5); Lymphocytes Absolute Auto 2.36 K/mm3 (0.9-3.2); Lymphocytes Percent Auto 37.6 % (18.3-44.2); Mean Corpuscular Hemoglobin 30.9 pg (26-34); Mean Corpuscular Volume 93.5 fl (80-100); Mean Platelet Volume 9.5 fl (7.4-10.4); Monocytes Absolute Auto 0.8 K/mm3 (0.1-0.6); Monocytes Percent Auto 11.9 % (2.6-8.5); Neutrophils Absolute Auto 2.9 K/mm3 (1.3-6.7); Neutrophils Percent Auto 46.1 % (45.5-73.1); Platelet Count Result 228 k/mm3 (150-375); Red Cell Distribution Width 12.3 % (11.5-14.5); White Blood Count 6.3 K/mm3 (4.5-10.0)
[2024-03-16 06:27] LABS: Alanine Aminotransferase 35 U/L (6-50); Alkaline Phosphatase 98 U/L (38-126); Anion Gap 9 mmol/L (4-12); Aspartate Amino Transferase 34 U/L (17-59); Bilirubin,Total 1.2 mg/dL (0.2-1.3); Blood Urea Nitrogen 17 mg/dL (9-20); Calcium 9.1 mg/dL (8.4-10.2); Carbon Dioxide 29 mmol/L (22-30); Chloride 99 mmol/L (98-107); Estimated CRCL calculation 61 ml/min; Estimated Glomerular Filt Rate > 60; Glucose 190 mg/dL (65-110); Sodium 137 mmol/L (137-145)
[2024-03-16 08:06] LABS: Glucose Point of Care 177 mg/dl (65-105)
--- NOTE | 2024-03-16 10:46 | PM.DS ---
DS: Admitting Diagnosis Discharge Date 03/16/24 Admitting Diagnosis Dementia Episode of generalized weakness DS: Discharge Diagnosis Discharge Diagnosis (1) Dementia with behavioral disturbance: Code(s): F03.918 - Unspecified dementia, unspecified severity, with other behavioral disturbance Status: Acute (2) Episode of generalized weakness: Code(s): R53.1 - Weakness Status: Acute (3) Diabetes: Code(s): E11.9 - Type 2 diabetes mellitus without complications Status: Acute (4) Alzheimers disease: Code(s): G30.9 - Alzheimer's disease, unspecified; F02.80 - Dementia in other diseases classified elsewhere, unspecified severity, without behavioral disturbance, psychotic disturbance, mood disturbance, and anxiety Status: Acute (5) Hyperlipidemia: Code(s): E78.5 - Hyperlipidemia, unspecified Status: Acute (6) BPH (benign prostatic hyperplasia): Code(s): N40.0 - Benign prostatic hyperplasia without lower urinary tract symptoms Status: Acute DS: Summary Hospital Course Reason for hospitalization: Dementia Episode of generalized weakness Hospital Course: Final diagnosis: Dementia Status at Discharge Cognitive/behavioral status at discharge: Alert oriented x1 Functional status at discharge: uses cane/walker Overall status at discharge: patient is progressing back to baseline Time Spent with Patient Time attestation: Total time spent providing and/or coordinating discharge services: Time spent: Greater than 30 minutes Exam Narrative: General: In no acute distress, well nourished Cardiac: Normal S1 and S2. No murmur, gallops or friction rubs, peripheral pulses intact. Respiratory: Lungs clear to auscultation, no adventitious lung sounds, currently on room air Gastrointestinal: soft, non-distended, non-tender, normoactive bowel sounds. : voiding without difficulty. Neuro: Alert and oriented x1, confused Psych: Interactive DS: Data Data Completed and Pending Completed studies during hospitalization: Head CT Chest x-ray Pending studies at discharge: None Labs on day of discharge: Labs from last 24 hours 03/16/24 03/16/24 03/15/24 07:59 05:57 20:11 WBC 6.3 RBC 4.60 Hgb 14.2 Hct 43.0 MCV 93.5 MCH 30.9 MCHC 33.0 RDW 12.3 Plt Count 228 MPV 9.5 Immature Gran % (Auto) 0.3 Neut % (Auto) 46.1 Lymph % (Auto) 37.6 Berks % (Auto) 11.9 H Eos % (Auto) 3.3 Baso % (Auto) 0.8 Lymph # (Auto) 2.36 [place]ks # (Auto) 0.8 H Eos # (Auto) 0.2 Baso # (Auto) 0.1 Abs Immat Gran (auto) 0.02 Absolute Neuts (auto) 2.9 Absolute Nucleated RBC 0.000 Nucleated RBC % 0.0 Sodium 137 Potassium 4.0 Chloride 99 Carbon Dioxide 29 Anion Gap 9 BUN 17 Creatinine 0.80 Estim Creat Clear Calc 61 Estimated GFR > 60 Glucose 190 H POC Capillary Glucose 177 H 310 H Hemoglobin A1c Calcium 9.1 Total Bilirubin 1.2 AST 34 ALT 35 Alkaline Phosphatase 98 Total Protein 7.0 Albumin 4.0 03/15/24 03/15/24 03/15/24 16:30 12:06 10:54 WBC RBC Hgb Hct MCV MCH MCHC RDW Plt Count MPV Immature Gran % (Auto) Neut % (Auto) Lymph % (Auto) Berks % (Auto) Eos % (Auto) Baso % (Auto) Lymph # (Auto) [place]ks # (Auto) Eos # (Auto) Baso # (Auto) Abs Immat Gran (auto) Absolute Neuts (auto) Absolute Nucleated RBC Nucleated RBC % Sodium Potassium Chloride Carbon Dioxide Anion Gap BUN Creatinine Estim Creat Clear Calc Estimated GFR Glucose POC Capillary Glucose 246 H 245 H Hemoglobin A1c 11.1 H Calcium Total Bilirubin AST ALT Alkaline Phosphatase Total Protein Albumin Procedures/Treatments: None Discharge Plan Discharge Attending physician on discharge: Tracee Perez provid
[2024-03-16 12:48] LABS: Glucose Point of Care 223 mg/dl (65-105)
--- NOTE | 2024-03-16 12:55 | PC.NURSE ---
Addendum entered by Mandy Queen RN 03/16/24 13:00: also notified of BG 223, with insulin ordered. MD would like sliding scale insulin to be held at this time due to patient still sleeping and lunch not eating at this time. Original Note: Patient sleeping at this time. Patient spoke with about waking patient to give morning medications. states she would like the patient to be left alone at this time and meds to be given when the patient wakes. MD notified.
[2024-03-16] MEDS: TAMSULOSIN HCL 0.4 MG CAPSULE PO (13:04)
== END 2024-03-16 14:02 ==
LOC: ANHED 03-14 05:55 → ANH3MEDSUR 03-14 21:33
PROVIDERS: Admitting Provider Student in an Organized Health Care Education/Training Program; Emergency Provider Physician Assistant; Visit Provider Nurse Practitioner Acute Care
DX: G30.9 Alzheimer's disease, unspecified (principal); F02.811 Dementia in other diseases classified elsewhere, unspecified severity, with agitation; R53.1 Weakness; E11.9 Type 2 diabetes mellitus without complications; I51.9 Heart disease, unspecified; N40.0 Benign prostatic hyperplasia without lower urinary tract symptoms; E78.5 Hyperlipidemia, unspecified; J84.9 Interstitial pulmonary disease, unspecified; Z87.891 Personal history of nicotine dependence; Z79.84 Long term (current) use of oral hypoglycemic drugs; Z79.85 Long-term (current) use of injectable non-insulin antidiabetic drugs; Z79.899 Other long term (current) drug therapy
CPT/HCPCS: 36415; 80053; 80307; 81003; 82948; 83036; 84443; 85025; 97161; 97165; 99285; A9270; G0378; J1200; J1630; J1650; J1815; J2060

== ENCOUNTER 2024-04-30 09:04 | Emergency (ER) | payer OTHER, SELFPAY ==
--- NOTE | ~2024-04-30 | CT_ITS ---
EXAMINATION: CT cervical spine wo con DATE: 04/30/2024 10:04 INDICATION: Neck injury. Fall. TECHNIQUE: Computed tomography (CT) of the cervical spine was performed without intravenous contrast. Automated exposure control and iterative reconstruction technique were employed. The dose-length pro duct was 427.26 mGy-cm. COMPARISON: Chest CT 02/25/2022 FINDINGS: The lung apices demonstrate chronic interstitial lung disease. There is mild kyphosis of ce rvical spine. There is 2 mm anterolisthesis of C7 on T1. There is mild chronic anterior wedging of C5 vertebral body. There is mildly decreased disc height at C4-C5 and severely decreased disc height at C5-C6 and C6-C7. The following disc levels are specifically discussed: C2-C3: There is no uncovertebral joint osteoarthritis. There is severe right and mild left facet join t osteoarthritis. There is mild right neural foraminal stenosis. There is no central canal stenosis. C3-C4: There is mild right and moderate left uncovertebral joint osteoarthritis. There is no facet brianne int osteoarthritis. There is mild left neural foraminal stenosis. There is no central canal stenosis. C4-C5: There is no uncovertebral joint osteoarthritis. There is no facet joint osteoarthritis. There is no neural foraminal stenosis. There is mild central canal stenosis. C5-C6: There is moderate right and severe left uncovertebral joint osteoarthritis. There is mild bila teral facet joint osteoarthritis. There is moderate left neural foraminal stenosis. There is mild kim tral canal stenosis. C6-C7: There is severe bilateral uncovertebral joint osteoarthritis. There is mild bilateral facet brianne int osteoarthritis. There is mild bilateral neural foraminal stenosis. There is mild central canal st enosis. C7-T1: There is no uncovertebral joint osteoarthritis. There is severe bilateral facet joint osteoart hritis. There is mild bilateral neural foraminal stenosis. There is no central canal stenosis. IMPRESSION: 1. No fracture. 2. Severe cervical spondylosis. Reviewed, dictated and finalized at location A.
--- NOTE | ~2024-04-30 | CT_ITS ---
EXAMINATION: CT brain wo con DATE: 04/30/2024 10:04 INDICATION: Fall. TECHNIQUE: Computed tomography (CT) of the head was performed without intravenous contrast. The mA wa s adjusted according to patient size. Iterative reconstruction technique was employed. The dose-lengt h product was 1210.67 mGy-cm. COMPARISON: Head CT 05/03/2023 FINDINGS: There are scattered areas of low attenuation in the cerebral white matter. 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 There is no intracranial hemorrhage, acute infarction, or abnormal int racranial mass lesion. The paranasal sinuses are clear. The mastoid air cells are normal. There are l ikely changes of ocular lens replacement surgeries. IMPRESSION: 1. 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 2. Stable moderate nonspecific cerebral white matter disease, which likely represents chronic small v essel ischemic disease. Reviewed, dictated and finalized at location A. IMPRESSION: 1. 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 2. Stable moderate nonspecific cerebral white matter disease, which likely repr esents chronic small vessel ischemic disease.
[2024-04-30 09:09] VITALS: BP 144/76; PULSE 63; RESP 20; TEMP 36.4; O2SAT 100
--- NOTE | 2024-04-30 10:38 | ED.GENADULT ---
HPI - General Adult General Chief complaint: Fall Stated complaint: fall Time Seen by Provider: 04/30/24 09:26 History of Present Illness HPI narrative: 84-year-old male with severe dementia presenting from memory care unit after ground level fall. Patient is A&O x1. He has no recollection of the events and cannot contribute meaningfully to the interview. He has no pain at this time. Family is at bedside states the patient has his baseline mental status. Related Data Home Medications Medication Instructions Recorded Confirmed Cyanacobalamin 1,000 mg PO DAILY 02/25/22 03/15/24 atorvastatin 20 mg [facility] 02/25/22 03/15/24 cholecalciferol (vitamin D3) 25 25 mcg PO 02/25/22 03/15/24 mcg (1,000 unit) tablet (Vitamin D3) empagliflozin 25 mg [facility] 02/25/22 03/15/24 finasteride 5 mg [facility] 02/25/22 03/15/24 gabapentin 100 mg tablet 300 mg PO 02/25/22 03/15/24 tamsulosin 0.4 mg capsule 0.4 mg PO DAILY 05/03/23 03/15/24 metformin 1,000 mg PO BID 03/15/24 03/15/24 Allergies Allergy/AdvReac Type Severity Reaction Status Date / Time No Known Allergies Allergy Verified 05/03/23 15:59 [facility] Past Medical History Medical History Benign prostate hyperplasia Dementia Diastolic dysfunction Echo in February 2022 showed normal LV size, mild asymmetric septal hypertrophy, no segmental wall abnormalities, grade 2 diastolic dysfunction, EF 60%. Hyperlipidemia Insulin dependent type 2 diabetes mellitus Interstitial lung disease UIP pattern chronic interstitial lung disease noted on chest CT 02/2022. Kidney stones Surgical History Surgical History History of cataract extraction History of repair of right rotator cuff Family History Family History Sibling Cancer Father Diabetes mellitus Social History Social History Social History: Surrogate medical decision maker: Rona Payne, spouse. Code status: Full code. Smoking status: Former smoker Tobacco type: cigarettes Alcohol intake: never Substance use: never Substance use type: does not use Lack of Transportation: No Lack of Food: Never True Current Housing: I Have Housing Concerned About Future Housing: No Difficulty Paying Gas/Electric Bills: No Difficulty Paying for Meds: No Currently Unemployed: No Education: High School Diploma/GED Difficulty w/ Childcare or Family Care: No Living arrangements: with family Additional living arrangements comments: Lives with in [place]. 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 Spiritual care concerns: No Exam Narrative: APPEARANCE: No apparent distress. A&O x1 Head: atraumatic. EYES: EOMI, NOSE: Atraumatic NECK: Trachea midline RESPIRATORY: No increased rate of breathing CTAB CARDIOVASCULAR: RRR, no peripheral edema ABDOMINAL: Non-distended soft nontender MUSCULOSKELETAl: No obvious deformities NEURO: Alert. Moving 4/4 extremities to command SKIN:: Warm, dry. Normal color PSYCHIATRIC: Normal affect Course Vital Signs Vital signs: Vital Signs Temperature 97.6 F 04/30/24 09:09 Pulse Rate 63 04/30/24 09:09 Respiratory Rate 20 04/30/24 09:09 Blood Pressure 144/76 H 04/30/24 09:09 Pulse Oximetry 100 04/30/24 09:09 Oxygen Delivery Room Air 04/30/24 09:09 Temperature 97.6 F 04/30/24 09:09 Pulse Rate 63 04/30/24 09:09 Respiratory Rate 20 04/30/24 09:09 Blood Pressure 144/76 H 04/30/24 09:09 Pulse Oximetry 100 04/30/24 09:09 Oxygen Delivery Room Air 04/30/24 09:09 Medical Decision Making MDM Narrative Medical decision making narrative: -Course: 84-year-old severe dementia presenting after
[2024-04-30 11:12] VITALS: BP 142/99; PULSE 79; RESP 16; TEMP 36.8; O2SAT 97
== END 2024-04-30 11:24 | disposition home or self-care (01) ==
PROVIDERS: Emergency Provider Emergency Medicine
DX: Z04.3 Encounter for examination and observation following other accident (principal); F03.90 Unspecified dementia, unspecified severity, without behavioral disturbance, psychotic disturbance, mood disturbance, and anxiety; I51.89 Other ill-defined heart diseases; E11.9 Type 2 diabetes mellitus without complications; E78.5 Hyperlipidemia, unspecified; J84.9 Interstitial pulmonary disease, unspecified; N40.0 Benign prostatic hyperplasia without lower urinary tract symptoms; Z87.442 Personal history of urinary calculi; Z87.891 Personal history of nicotine dependence; Z98.49 Cataract extraction status, unspecified eye; M47.812 Spondylosis without myelopathy or radiculopathy, cervical region; R90.82 White matter disease, unspecified; W18.30XA Fall on same level, unspecified, initial encounter
CPT/HCPCS: 70450; 72125; 99284

== ENCOUNTER 2024-05-18 21:02 | Observation (INO) | payer OTHER, SELFPAY ==
--- NOTE | ~2024-05-18 | CT_ITS ---
Clinical indication:Pelvic pain COMPARISON: Reference is made to a plain film evaluation of the pelvis performed the same day TECHNIQUE: Multiple contiguous axial images of the pelvis were performed without the administration o f intravenous contrast. DLP: 222 mGy-cm FINDINGS: Cortical disruption is identified along the anterior lateral margin of the right femoral he ad (series 3, image 68). While atypical, this may represent a nondisplaced fracture. Diffuse bony demineralization is present throughout the remainder of the visualized osseous structure s. No additional fracture deformity is appreciated. Redemonstration of calcific tendinosis of the left hip. Within the abdomen: The air-filled appendix is of normal caliber (series 3, image 7). Fat-containing umbilical hernia. Fat-containing bilateral inguinal hernias.. The bladder is significantly distended for which decompression is suggested. IMPRESSION: Cortical disruption along the anterior lateral margin of the right femoral head may represent a nondi splaced fracture. Reviewed, dictated and finalized at location A. IMPRESSION: Cortical disruption along the anterior lateral margin of the right femoral head may represent a nondisplaced fracture.
--- NOTE | ~2024-05-18 | CT_ITS ---
History: Increasing falls, with lethargy PROCEDURE: CT head without contrast. COMPARISON: 04/30/2024 TECHNIQUE: Axial imaging of the head performed from the skull base to the vertex without IV contrast. Sagittal a nd coronal reformations obtained. DLP: 756.67 mGy-cm FINDINGS: The ventricles are enlarged, equal to the degree of sulcal prominence and the degree of decreased att enuation within the periventricular white matter, all findings consistent with a senescent brain. There is no mass, mass effect or midline shift. There is no abnormal extra-axial fluid collection or intracranial hemorrhage. Visualized paranasal sinuses are clear. The mastoid air cells are well aerated. There are no skull fractures. Impression: Findings consistent with a senescent brain, without acute intracranial hemorrhage or suspicious mass effect. Reviewed, dictated and finalized at location A. Impression: Findings consistent with a senescent brain, without acute intracranial hemorrha ge or suspicious mass effect.
--- NOTE | ~2024-05-18 | XR_ITS ---
HISTORY: falls and hip pain COMPARISON: 03/30/2018 TECHNIQUE: 4 views pelvis and bilateral hips were performed FINDINGS: Diffuse bony demineralization is identified. Inferomedial sclerosis of the femoral acetabular joint spaces bilaterally, unchanged from prior. Calcified atherosclerotic disease visualized within the pelvis the proximal thigh. Well-corticated osseous densities superior and slightly medial to the greater trochanter, findings co nsistent with calcific tendinosis. Significant narrowing of the pubic symphysis with sclerosis. The bilateral sacroiliac joints are mini stephanie widened with moderate sclerosis. Altered positioning of the left hip on frontal view, similar in appearance to the 2018 examination. Fecal stasis within the pelvis. IMPRESSION: Calcific tendinosis of the left hip. Diffuse bony demineralization degenerative disease, as detailed above. No acute fracture is appreciated on plain film evaluation If clinical suspicion persists for an acute fracture, cross-sectional imaging may be performed with n oncontrast enhanced CT, the patient is clinically able. Reviewed, dictated and finalized at location A. IMPRESSION: Calcific tendinosis of the left hip. Diffuse bony demineralization degenerative disease, as detailed above. No acute fracture is appreciated on plain film evaluation If clinical suspicion persists for an acute fracture, cross-sectional imaging m ay be performed with noncontrast enhanced CT, the patient is clinically able.
--- NOTE | ~2024-05-18 | CT_ITS ---
CT brain wo con Ordering provider: Kailyn Alatorre APRN History: 84 years Male with . fall . Comparison: May 18, 2024 Technique: CT of the head without contrast. Radiation reduction technique utilized. The dose-length product was 681 mGy-cm. FINDINGS: BRAIN PARENCHYMA AND CSF SPACES: Mild leukoaraiosis and diffuse cortical atrophy. Mild atheromatous d isease. Old lacunar infarct in the right thalamus. No midline shift, mass effect or hemorrhage. The brain parenchyma and CSF spaces are otherwise normal. VISUALIZED PARANASAL SINUSES: Well aerated. MASTOIDS: Well aerated. BONES: The bones appear intact. SOFT TISSUES: Visualized nasopharynx is normal. Superficial soft tissues are normal. IMPRESSION: No acute intracranial findings. Reviewed, dictated and finalized at location A.
--- NOTE | ~2024-05-18 | XR_ITS ---
CHEST RADIOGRAPH CLINICAL HISTORY: AMS . COMPARISON: 05/03/2023 TECHNIQUE: Single portable view of the chest. FINDINGS The cardiomediastinal silhouette is unremarkable. Coarse interstitial lung markings, likely chronic. Redemonstration of increased interstitial markings within the right upper lobe, unchanged from 2022. Visualized osseous structures and soft tissues are unremarkable. IMPRESSION: Chronic interstitial lung disease, without focal infiltrate or effusion. Reviewed, dictated and finalized at location A.
--- NOTE | ~2024-05-18 | MR_ITS ---
EXAMINATION: MR hip LT wo con DATE: 05/19/2024 12:33 INDICATION: Left femoral neck fracture. TECHNIQUE: Magnetic resonance imaging (MRI) of the left hip was performed without intravenous contras t. The patient was unable to complete all of our typical sequences. COMPARISON: CT pelvis 05/18/24 FINDINGS: Motion artifact is noted, which decreases sensitivity. Alignment is normal. No fracture. There is mod erate osteoarthritis of the hips. There is a Wilson catheter in expected position. There is edema in r ight gluteus favio muscle. There is mild bilateral trochanter bursitis. The prostate is mildly enla rged. IMPRESSION: 1. No fracture. 2. Moderate osteoarthritis of the hips. 3. Edema in right gluteus favio muscle, consistent with mild strain (grade 1). Reviewed, dictated and finalized at location A. IMPRESSION: 1. No fracture. 2. Moderate osteoarthritis of the hips. 3. Edema in right gluteus favio muscle, consistent with mild strain (grade 1) .
[2024-05-18 21:05] VITALS: BP 134/67; PULSE 84; RESP 14; TEMP 36.6; O2SAT 99
--- NOTE | 2024-05-18 21:12 | ED.FALL ---
HPI - Fall General Chief Complaint: Fall Stated Complaint: fall History of Present Illness HPI Narrative: 84-year-old male who is normally a and O to self presents to the emergency department from a memory care unit for evaluation after having multiple falls. Patient is apparently a new resident at this facility but has been having increasing falls. Patient was unwilling to get out of bed today. Family was concerned because this is not his typical baseline for activity. Upon arrival to the emergency department patient denies any pain or complaint. Related Data Home Medications Medication Instructions Recorded Confirmed cholecalciferol (vitamin D3) 25 25 mcg PO HS 02/25/22 05/19/24 mcg (1,000 unit) tablet (Vitamin D3) tamsulosin 0.4 mg capsule 0.4 mg PO QPM 05/03/23 05/19/24 acetaminophen 500 mg tablet 500 mg PO BID 05/19/24 05/19/24 atorvastatin 20 mg tablet 20 mg PO HS 05/19/24 05/19/24 benztropine 2 mg tablet 2 mg PO BID PRN OSTEOARTHRITIS 05/19/24 05/19/24 cyanocobalamin (vitamin B-12) 100 100 mcg PO DAILY 05/19/24 05/19/24 mcg tablet escitalopram oxalate 10 mg tablet 10 mg PO DAILY 05/19/24 05/19/24 finasteride 5 mg tablet 5 mg PO QHS 05/19/24 05/19/24 insulin aspart U-100 100 unit/mL 4 unit subcut DIRECTED 05/19/24 05/19/24 (3 mL) subcutaneous pen (Novolog FlexPen U-100 Insulin aspart) insulin aspart U-100 100 unit/mL 10 unit subcut DIRECTED 05/19/24 05/19/24 (3 mL) subcutaneous pen (Novolog FlexPen U-100 Insulin aspart) magnesium hydroxide 2,400 mg/10 mL 30 ml PO DAILY PRN MAGNESIUM 05/19/24 05/19/24 oral suspension DEFICIENCY melatonin 3 mg tablet 3 mg PO HS PRN Insomnia 05/19/24 05/19/24 metformin 1,000 mg tablet 1,000 mg PO BIDWMEAL 05/19/24 05/19/24 polyethylene glycol 3350 17 gram 17 g PO DAILY 05/19/24 05/19/24 oral powder packet (Miralax) quetiapine 100 mg tablet 100 mg PO QAM 05/19/24 05/19/24 quetiapine 150 mg tablet 150 mg PO QPM 05/19/24 05/19/24 quetiapine 200 mg tablet 200 mg PO HS 05/19/24 05/19/24 quetiapine 25 mg tablet 25 mg PO Q6H PRN Anxiety 05/19/24 05/19/24 quetiapine 50 mg tablet 50 mg PO DAILY 05/19/24 05/19/24 Allergies Allergy/AdvReac Type Severity Reaction Status Date / Time memantine [From [facility]] Allergy Unknown Verified 05/19/24 05:58 semaglutide Allergy Unknown Verified 05/19/24 05:58 Review of Systems Review of Systems: All systems reviewed & are unremarkable except as noted in HPI and below PMFSH Past Medical History Medical History Benign prostate hyperplasia Dementia Diastolic dysfunction Echo in February 2022 showed normal LV size, mild asymmetric septal hypertrophy, no segmental wall abnormalities, grade 2 diastolic dysfunction, EF 60%. Hyperlipidemia Insulin dependent type 2 diabetes mellitus Interstitial lung disease UIP pattern chronic interstitial lung disease noted on chest CT 02/2022. Kidney stones Surgical History Surgical History History of cataract extraction History of repair of right rotator cuff Family History Family History Sibling Cancer Father Diabetes mellitus Social History Social History Social History: Surrogate medical decision maker: Ronaalisia Payne, spouse. Code status: Full code. Smoking packs per day: 1 Smoking cigarettes per day: 20.0 Years smoked: 50 Smoking pack-years: 50.00 Smoking status: Former smoker Tobacco type: cigarettes Alcohol intake: never Substance use: never Substance use type: does not use Lack of Transportation: No Lack of Food: Never True Current Housing: I Have Housing Concerned About Future Housing: No Difficulty Paying Gas/Electric Bills: No Difficulty Paying for Meds: No Currently Unemployed: No Education: High School Diploma/GED Difficu
[2024-05-18 22:38] LABS: Basophils Absolute Auto 0.1 K/mm3 (0.0-0.1); Basophils Percent Auto 0.9 % (0.2-1.2); Eosinophils Absolute Auto 0.6 K/mm3 (0-0.3); Eosinophils Percent Auto 6.5 % (0-4.4); Hematocrit 35.2 % (42.0-52.0); Hemoglobin 11.4 g/dL (14.0-18.0); Immature Granulocyte Absolute 0.04 K/mm3 (0.00-0.031); Immature Granulocyte Percent A 0.5 % (0-0.5); Lymphocytes Absolute Auto 2.31 K/mm3 (0.9-3.2); Lymphocytes Percent Auto 27.1 % (18.3-44.2); Mean Corpuscular HGB Conc 32.4 g/dl (32-36); Mean Corpuscular Hemoglobin 31.3 pg (26-34); Mean Corpuscular Volume 96.7 fl (80-100); Mean Platelet Volume 9.4 fl (7.4-10.4); Monocytes Absolute Auto 0.9 K/mm3 (0.1-0.6); Monocytes Percent Auto 10.6 % (2.6-8.5); Neutrophils Absolute Auto 4.6 K/mm3 (1.3-6.7); Neutrophils Percent Auto 54.4 % (45.5-73.1); Platelet Count Result 287 k/mm3 (150-375); Red Blood Count 3.64 M/mm3 (4.6-6.20); Red Cell Distribution Width 13.2 % (11.5-14.5); White Blood Count 8.5 K/mm3 (4.5-10.0)
[2024-05-18 22:40] VITALS: RESP 19; O2SAT 98
[2024-05-18 22:52] LABS: Alanine Aminotransferase 18 U/L (6-50); Albumin Level 3.9 g/dL (3.5-5.1); Alkaline Phosphatase 111 U/L (38-126); Anion Gap 7 mmol/L (4-12); Aspartate Amino Transferase 21 U/L (17-59); Bilirubin,Total 0.4 mg/dL (0.2-1.3); Blood Urea Nitrogen 21 mg/dL (9-20); Carbon Dioxide 30 mmol/L (22-30); Chloride 102 mmol/L (98-107); Estimated CRCL calculation 71 ml/min; Estimated Glomerular Filt Rate > 60; Glucose 142 mg/dL (65-110); Potassium 3.8 mmol/L (3.4-5.0); Prothrombin Time 13.4 Seconds (11.1-14.7); Sodium 139 mmol/L (137-145)
[2024-05-18 22:53] LABS: Partial Thromboplastin Time 36.8 Seconds (22.3-36.8)
[2024-05-18 23:12] VITALS: BP 125/62; PULSE 70; RESP 14; TEMP 37.1; O2SAT 98
[2024-05-18 23:43] LABS: Influenza A QL RT-PCR Negative (Negative); Influenza B QL RT-PCR Negative (Negative); RSV RNA, RT-PCR Negative (Negative); SARS-CoV-2 RNA PCR Negative (Negative)
[2024-05-19] VITALS (10 sets, daily range): BP systolic 117–145; BP diastolic 55–78; PULSE 57–85; RESP 13–19; TEMP 36–36.7; O2SAT 92–99
--- NOTE | 2024-05-19 00:28 | PC.NURSE ---
pt refusing straight cath and swung hand in pct direction when attempted by staff
--- NOTE | 2024-05-19 00:59 | PM.IMHP ---
H&P: HPI History of Present Illness Date/Time: 05/19/24 00:59 Chief Complaint: fall Narrative: This is an 84-year-old male with past medical history significant for dementia, benign prostatic hyperplasia, type diabetes mellitus. Patient resides at a memory care unit at local residential was brought for evaluation after having a fall. Preliminary workup was significant for right femoral head fracture nondisplaced. Most of the history has been obtained upon reviewing medical records and emergency room physician and patient unable to contribute in a meaningful way to history taking. At the time of my visit patient was resting comfortably. CHEST RADIOGRAPH CLINICAL HISTORY: AMS . COMPARISON: 05/03/2023 TECHNIQUE: Single portable view of the chest. FINDINGS The cardiomediastinal silhouette is unremarkable. Coarse interstitial lung markings, likely chronic. Redemonstration of increased interstitial markings within the right upper lobe, unchanged from 2022. Visualized osseous structures and soft tissues are unremarkable. IMPRESSION: Chronic interstitial lung disease, without focal infiltrate or effusion. History: Increasing falls, with lethargy PROCEDURE: CT head without contrast. COMPARISON: 04/30/2024 TECHNIQUE: Axial imaging of the head performed from the skull base to the vertex without IV contrast. Sagittal and coronal reformations obtained. DLP: 756.67 mGy-cm FINDINGS: The ventricles are enlarged, equal to the degree of sulcal prominence and the degree of decreased attenuation within the periventricular white matter, all findings consistent with a senescent brain. There is no mass, mass effect or midline shift. There is no abnormal extra-axial fluid collection or intracranial hemorrhage. Visualized paranasal sinuses are clear. The mastoid air cells are well aerated. There are no skull fractures. Impression: Findings consistent with a senescent brain, without acute intracranial hemorrhage or suspicious mass effect. Clinical indication:Pelvic pain COMPARISON: Reference is made to a plain film evaluation of the pelvis performed the same day TECHNIQUE: Multiple contiguous axial images of the pelvis were performed without the administration of intravenous contrast. DLP: 222 mGy-cm FINDINGS: Cortical disruption is identified along the anterior lateral margin of the right femoral head (series 3, image 68). While atypical, this may represent a nondisplaced fracture. Diffuse bony demineralization is present throughout the remainder of the visualized osseous structures. No additional fracture deformity is appreciated. Redemonstration of calcific tendinosis of the left hip. Within the abdomen: The air-filled appendix is of normal caliber (series 3, image 7). Fat-containing umbilical hernia. Fat-containing bilateral inguinal hernias.. The bladder is significantly distended for which decompression is suggested. IMPRESSION: Cortical disruption along the anterior lateral margin of the right femoral head may represent a nondisplaced fracture. REPLACED BY [facility] Past Medical History Medical History Benign prostate hyperplasia Dementia Diastolic dysfunction Echo in February 2022 showed normal LV size, mild asymmetric septal hypertrophy, no segmental wall abnormalities, grade 2 diastolic dysfunction, EF 60%. Hyperlipidemia Insulin dependent type 2 diabetes mellitus Interstitial lung disease UIP pattern chronic interstitial lung disease noted on chest CT 02/2022. Kidney stones Surgical History Surgical History History of cataract extraction History of repair of right rotator cuff Family History Family History Sibling Cancer Father Diabetes mellitus Social History Social History Social History:
--- NOTE | 2024-05-19 05:23 | ADMGEN ---
This patient, Jimmy Payne, was admitted to 3 [facility] S[facility] Room 332-01. Patient/family oriented to hospital policies and general routines including ID bracelet, bed and alarms, visiting hours, pain management, procedures, bathroom and other care routines, personal items, smoking policy, room service/diet, and visiting hours. Information on how to activate the Rapid Response Team has been discussed. Patient/Family are encouraged to report perceived risks to care and to ask questions if they do not understand what they are told or what they should do.
[2024-05-19 05:31] LABS: Add Urine Microscopic? YES; Appearance Urine Clear (Clear); Bacteria Urine None Seen /hpf; Bilirubin Urine Negative (Negative); Blood Urine Negative (Negative); Color Urine Yellow (Yellow); Glucose Urine UA 3+ mg/dL (Negative); Ketones Urine Trace mg/dL (Negative); Leukocyte Esterase Ur Negative LEU/UL (Negative); Nitrate Urine Negative (Negative); Protein Urine Trace mg/dL (Negative); RBC Urine 0-2 /hpf (0-2); Specific Grav Ur 1.029 (1.001-1.035); Squamous Epithelial Cell Urine None Seen /hpf (Few); WBC Urine 0-5 /hpf (0-3); pH Urine 5.5 (5.0-9.0)
[2024-05-19] MEDS: SODIUM CHLORIDE 0.9% IV 1,000 ML 125 ML IV CONT ×2 (05:31→18:17)
--- NOTE | 2024-05-19 05:32 | PC.NURSE ---
Admission done based off of facility and , information put in to the best of our ability
--- NOTE | 2024-05-19 07:59 | ECG_ITS ---
Test Date: 2024-05-19 09:08:18 Measurements Intervals [place] Rate: 59 P: 44 [place]: 186 QRS: 100 QRSD: 105 T: 59 QT: 427 QTc: 425 Interpretive Statements SINUS BRADYCARDIA WITH SINUS ARRHYTHMIA RIGHTWARD AXIS POOR R-WAVE PROGRESSION, CANNOT EXCLUDE PREVIOUS ANTERIOR INFARCTION ABNORMAL ECG No previous ECG available for comparison Electronically Signed On 05-19-2024 16:05:04 CDT by Keshav Hackett M.D.
[2024-05-19] MEDS: ESCITALOPRAM OXALATE 10 MG TABLET PO (08:37)
[2024-05-19] MEDS: ACETAMINOPHEN 500 MG TABLET PO ×2 (08:37→18:13)
[2024-05-19] MEDS: polyethylene glycoL 3350 17 GM POWD.PACK PO (08:38)
[2024-05-19 08:41] LABS: Magnesium 1.5 mg/dL (1.6-2.3)
[2024-05-19] MEDS: QUEtiapine FUMARATE 25 MG TABLET 50 MG PO ×2 (08:41→18:13)
[2024-05-19 09:32] LABS: Glucose Point of Care 162 mg/dl (65-105)
--- NOTE | 2024-05-19 11:10 | PM.IMPN ---
Progress Note: A&P Assessment and Plan (1) Fall: Code(s): W19.XXXA - Unspecified fall, initial encounter Status: Acute Assessment and Plan: left hip MRI showed FINDINGS: Motion artifact is noted, which decreases sensitivity. Alignment is normal. No fracture. There is moderate osteoarthritis of the hips. There is a Wilson catheter in expected position. There is edema in right gluteus favio muscle. There is mild bilateral trochanter bursitis. The prostate is mildly enlarged. IMPRESSION: 1. No fracture. 2. Moderate osteoarthritis of the hips. 3. Edema in right gluteus favio muscle, consistent with mild strain (grade 1). 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 Monitor blood sugars. (3) Dementia: Code(s): F03.90 - Unspecified dementia, unspecified severity, without behavioral disturbance, psychotic disturbance, mood disturbance, and anxiety Status: Acute Assessment and Plan: continue Quetiapine and Escitalopram. (4) Alzheimers disease: Code(s): G30.9 - Alzheimer's disease, unspecified; F02.80 - Dementia in other diseases classified elsewhere, unspecified severity, without behavioral disturbance, psychotic disturbance, mood disturbance, and anxiety Status: Acute Assessment and Plan: continue Quetiapine and Escitalopram. Subjective Date/time seen: 05/19/24 11:10 Interval history: Patient drowsy, denies pain. Review of Systems Review of Systems: All systems reviewed & are unremarkable except as noted in HPI and below Exam Const: General: comfortable and no acute distress Resp: Effort & Inspection: normal respiratory effort Auscultation: clear to auscultation bilaterally Cardio: Rate: regular rate Rhythm: regular rhythm GI: GI Palp: Yes Soft to palpation Auscultation: normal bowel sounds Skin: General skin exam: no rashes or lesions noted Extrem: General: pedal edema bilaterally (trace) Objective Data Vital Signs Vital Signs: Vital Signs - 24 hr 05/18/24 21:05 05/18/24 22:40 05/18/24 23:12 Temperature 97.8 F 98.8 F Pulse Rate 84 70 Respiratory Rate 14 19 14 Blood Pressure 134/67 125/62 Pulse Oximetry 99 98 98 Oxygen Delivery Room Air 05/19/24 04:13 05/19/24 05:30 05/19/24 01:00 Temperature 97.9 F 97.3 F L 97.9 F Pulse Rate 68 82 60 Respiratory Rate 14 14 14 Blood Pressure 132/67 134/75 133/59 L Pulse Oximetry 95 99 97 Oxygen Delivery 05/19/24 02:00 05/19/24 03:00 05/19/24 04:00 Temperature 97.8 F Pulse Rate 70 74 74 Respiratory Rate 13 13 16 Blood Pressure 141/70 H 131/78 132/67 Pulse Oximetry 92 98 93 Oxygen Delivery 05/19/24 08:15 05/19/24 05:31 Temperature 97.3 F L Pulse Rate 82 Respiratory Rate Blood Pressure 134/75 Pulse Oximetry 98 99 Oxygen Delivery Room Air Intake/Output Intake/Output: Intake & Output 05/16/24 05/17/24 05/18/24 05/19/24 23:59 23:59 23:59 23:59 Intake Total 0 Output Total 450 Balance -450 Meds/Results Medications: Active Medications Generic Name Dose Route Start Last Admin Trade Name Freq PRN Reason Stop Dose Admin Acetaminophen 500 mg 05/19/24 09:00 05/19/24 08:37 Acetaminophen 500 Mg Tablet PO 500 mg BID SUZIE Administration Atorvastatin Calcium 20 mg 05/19/24 21:00 Atorvastatin 20 Mg Tablet PO HS SUZIE Benztropine Mesylate 2 mg 05/19/24 07:51 Benztropine Mesylate 1 Mg Tablet PO BID PRN OSTEOARTHRITIS Dextrose 12.5 gm 05/19/24 08:01 Dextrose 50% 25 Gm/50 Ml Syringe IV PUSH PRN PRN Hypoglycemia Protocol Escitalopram Oxalate 10 mg 05/19/24 09:00 05/19/24 08:37 Escitalopram Oxalate 10 Mg Tablet PO 10 mg DAILY SUZIE Administration Finasteride 5 mg
[2024-05-19 11:46] LABS: Glucose Point of Care 154 mg/dl (65-105)
[2024-05-19] MEDS: MAGNESIUM SULF 2 GM/WATER 50ML 2 GM/50 ML BAG IVPB (12:53)
--- NOTE | 2024-05-19 16:52 | PM.CNOR ---
Assessment and Plan Assessment and plan (1) Contusion of right buttock: Code(s): S30.0XXA - Contusion of lower back and pelvis, initial encounter Status: Acute History of Present Illness HPI Consult date: 05/19/24 Chief complaint: Right Femoral Head Fracture Narrative: Patient is an 84-year-old gentleman who was brought to the emergency room last night by the half-way staff. He resides in a memory care unit because of Alzheimer's dementia. He was unwilling to ambulate yesterday which is new for him and prior to that he had been ambulate. He has had if couple of falls in the last 2 weeks the last 1 about a week ago and there was suspicion he might have so he was brought to the [facility] Emergency Room. Patient has rather severe dementia and he does not communicate any symptom provide any answers to questions. His and daughter were present today. He had x-rays done of both hips and AP pelvis which showed no evidence of trauma. A CT pelvis was obtained and this showed on 1 slice a possible cortical infraction at the anterior aspect of the left femoral neck at the junction of the head and neck. This was seen on image 68 series 3 and the radiologist last night put a long pain Amaro at that location. Additional cortical infraction it shows some linear lucency with sclerotic margin extending toward the center of the femoral head at that location with relative sclerosis of the very central head. The cuts immediately above and below this did not show this phenomena which would suggest that it probably represents a vessel lucency. Adding to the confusion, the report of the CT scan showed possible fracture of the right femoral neck which was an error. I have just spoken with Say he the radiologist who read the MRI scan that was done today and he reviewed the CT images and will make a change so it correctly states that the suspected fracture line was in the left femoral neck and not the right. After I reviewed the CT images I ordered an MRI scan to determine whether or not there was a fracture. MRI scan showed no fracture of either hip. The MRI scan did show some signs of trochanteric bursitis of the right hip and some edema in the right gluteus favio suggesting grade 1 strain or bruise. Physical examination: On exam today he is in good spirits very pleasant. The response he is quite alert. He allowed be to move his hips around he had no discomfort with range of motion of either hip today. He was able to do a straight leg raise which she did on command on the right side but on the left side required more coaxing and he seemed to focus on the task as the reason as a ventrally was able to lift up the left leg and while he was doing this both times I asked if he had any discomfort in to he denied that. He had no tenderness over the lateral aspect of the left hip or left buttock but he did have mild tenderness over the lateral aspect of the right hip and right buttock. Assessment and plan: I suspect that this gentleman probably fell on his right buttock and lateral aspect of his right hip with his last fall and the findings that we see on MRI scan in the trochanteric bursa and gluteus favio on the right side are sequela of that last trauma. This trauma does not require any specific management other than symptomatic care he does unclear as to the reason why he was refusing to walk back yesterday. I would recommend that we have physical therapy work with him and it was certainly be reassuring he was willing to cooperate with therapy and walked away he was able to walk before coming to the hospital which would argue against any serious injury that would affect his ability to walk. I have explained all of this to the patient's and daughter. I will ask physical therapy to see him for ambulation weight-bearing as tolerated with walker for balance. I am happy to see him back on an as-needed basis if any further problems arise.
[2024-05-19 17:18] LABS: Glucose Point of Care 145 mg/dl (65-105)
[2024-05-19] MEDS: QUEtiapine FUMARATE 100 MG TABLET PO (18:13)
[2024-05-19] MEDS: TAMSULOSIN HCL 0.4 MG CAPSULE PO (18:14)
[2024-05-19] MEDS: ATORVASTATIN 20 MG TABLET PO (20:37)
[2024-05-19] MEDS: CHOLECALCIFEROL 1,000 UNITS TABLET 1000 UNITS PO (20:37)
[2024-05-19] MEDS: FINASTERIDE 5 MG TABLET PO (20:37)
[2024-05-19] MEDS: QUEtiapine FUMARATE 100 MG TABLET 200 MG PO (20:38)
[2024-05-19 21:03] LABS: Glucose Point of Care 167 mg/dl (65-105)
[2024-05-20] MEDS: SODIUM CHLORIDE 0.9% IV 1,000 ML 125 ML IV CONT ×2 (02:29→20:11)
[2024-05-20 05:59] VITALS: BP 147/70; PULSE 68; RESP 12; TEMP 36.2; O2SAT 97
[2024-05-20 06:01] LABS: Basophils Absolute Auto 0.1 K/mm3 (0.0-0.1); Basophils Percent Auto 0.7 % (0.2-1.2); Eosinophils Absolute Auto 0.4 K/mm3 (0-0.3); Eosinophils Percent Auto 5.1 % (0-4.4); Hematocrit 33.4 % (42.0-52.0); Hemoglobin 10.5 g/dL (14.0-18.0); Immature Granulocyte Absolute 0.02 K/mm3 (0.00-0.031); Immature Granulocyte Percent A 0.3 % (0-0.5); Lymphocytes Absolute Auto 2.05 K/mm3 (0.9-3.2); Lymphocytes Percent Auto 29.1 % (18.3-44.2); Mean Corpuscular HGB Conc 31.4 g/dl (32-36); Mean Corpuscular Hemoglobin 30.5 pg (26-34); Mean Corpuscular Volume 97.1 fl (80-100); Monocytes Absolute Auto 0.8 K/mm3 (0.1-0.6); Monocytes Percent Auto 11.5 % (2.6-8.5); Neutrophils Absolute Auto 3.8 K/mm3 (1.3-6.7); Neutrophils Percent Auto 53.3 % (45.5-73.1); Platelet Count Result 264 k/mm3 (150-375); Red Blood Count 3.44 M/mm3 (4.6-6.20); Red Cell Distribution Width 13.1 % (11.5-14.5)
[2024-05-20 06:14] LABS: Alanine Aminotransferase 15 U/L (6-50); Albumin Level 3.2 g/dL (3.5-5.1); Alkaline Phosphatase 103 U/L (38-126); Anion Gap 5 mmol/L (4-12); Aspartate Amino Transferase 22 U/L (17-59); Bilirubin,Total 0.8 mg/dL (0.2-1.3); Blood Urea Nitrogen 13 mg/dL (9-20); Calcium 8.4 mg/dL (8.4-10.2); Carbon Dioxide 27 mmol/L (22-30); Chloride 104 mmol/L (98-107); Estimated CRCL calculation 82 ml/min; Estimated Glomerular Filt Rate > 60; Glucose 172 mg/dL (65-110); Potassium 4.5 mmol/L (3.4-5.0); Sodium 136 mmol/L (137-145)
[2024-05-20 07:54] LABS: Glucose Point of Care 152 mg/dl (65-105)
[2024-05-20] MEDS: polyethylene glycoL 3350 17 GM POWD.PACK PO (08:34)
[2024-05-20] MEDS: ACETAMINOPHEN 500 MG TABLET PO ×2 (08:34→17:42)
[2024-05-20] MEDS: QUEtiapine FUMARATE 100 MG TABLET PO ×2 (08:34→17:37)
[2024-05-20] MEDS: ESCITALOPRAM OXALATE 10 MG TABLET PO (08:34)
[2024-05-20] MEDS: QUEtiapine FUMARATE 25 MG TABLET 50 MG PO ×2 (08:34→17:37)
--- NOTE | 2024-05-20 09:27 | PM.IMPN ---
Progress Note: A&P Assessment and Plan (1) Fall: Code(s): W19.XXXA - Unspecified fall, initial encounter Status: Acute Assessment and Plan: left hip MRI showed FINDINGS: Motion artifact is noted, which decreases sensitivity. Alignment is normal. No fracture. There is moderate osteoarthritis of the hips. There is a Wilson catheter in expected position. There is edema in right gluteus favio muscle. There is mild bilateral trochanter bursitis. The prostate is mildly enlarged. IMPRESSION: 1. No fracture. 2. Moderate osteoarthritis of the hips. 3. Edema in right gluteus favio muscle, consistent with mild strain (grade 1). PT/OT working with patient, patient will need a rehab to get stronger before he can return to memory care unit at a local detention. (2) Insulin dependent type 2 diabetes mellitus: Code(s): E11.9 - Type 2 diabetes mellitus without complications; Z79.4 - intermodal truck driver (current) use of insulin Status: Acute Assessment and Plan: Follow diabetes protocol ordered. Monitor blood sugars. (3) Dementia: Code(s): F03.90 - Unspecified dementia, unspecified severity, without behavioral disturbance, psychotic disturbance, mood disturbance, and anxiety Status: Acute Assessment and Plan: continue Quetiapine and Escitalopram. (4) Alzheimers disease: Code(s): G30.9 - Alzheimer's disease, unspecified; F02.80 - Dementia in other diseases classified elsewhere, unspecified severity, without behavioral disturbance, psychotic disturbance, mood disturbance, and anxiety Status: Acute Assessment and Plan: continue Quetiapine and Escitalopram. Subjective Date/time seen: 05/20/24 09:27 Interval history: Patient denies chest pain, palpitations, shortness of breath, or pain. at bedside. Review of Systems Review of Systems: All systems reviewed & are unremarkable except as noted in HPI and below Exam Const: General: comfortable and no acute distress Resp: Effort & Inspection: normal respiratory effort Auscultation: clear to auscultation bilaterally Cardio: Rate: regular rate Rhythm: regular rhythm GI: GI Palp: Yes Soft to palpation Auscultation: normal bowel sounds Skin: Other: bruising on bilateral arms and scabbed area on the back of left lower arm. Neuro: Other: Memory loss. Extrem: General: normal to inspection Objective Data Vital Signs Vital Signs: Vital Signs - 24 hr 05/19/24 14:00 05/19/24 21:19 05/19/24 20:00 Temperature 96.8 F L 98.0 F Pulse Rate 57 L 85 Respiratory Rate 14 19 Blood Pressure 145/59 H 117/55 L Pulse Oximetry 97 95 Oxygen Delivery Room Air 05/20/24 05:59 Temperature 97.1 F L Pulse Rate 68 Respiratory Rate 12 Blood Pressure 147/70 H Pulse Oximetry 97 Oxygen Delivery Intake/Output Intake/Output: Intake & Output 05/17/24 05/18/24 05/19/24 05/20/24 23:59 23:59 23:59 23:59 Intake Total 1000 1000 Output Total 900 600 Balance 100 400 Meds/Results Medications: Active Medications Generic Name Dose Route Start Last Admin Trade Name Freq PRN Reason Stop Dose Admin Acetaminophen 500 mg 05/19/24 09:00 05/20/24 08:34 Acetaminophen 500 Mg Tablet PO 500 mg BID SUZIE Administration Atorvastatin Calcium 20 mg 05/19/24 21:00 05/19/24 20:37 Atorvastatin 20 Mg Tablet PO 20 mg HS SUZIE Administration Benztropine Mesylate 2 mg 05/19/24 07:51 Benztropine Mesylate 1 Mg Tablet PO BID PRN OSTEOARTHRITIS Dextrose 12.5 gm 05/19/24 08:01 Dextrose 50% 25 Gm/50 Ml Syringe IV PUSH PRN PRN Hypoglycemia Protocol Escitalopram Oxalate 10 mg 05/19/24 09:00 05/20/24 08:34 Escitalopram Oxalate 10 Mg Tablet PO 10 mg DAILY SUZIE Administration Finasteride 5 mg 05/19/24 21:00 05/19/24 20:37 Finasteride 5 Mg Tablet PO 5 mg QHS SUZIE Administration Glucagon 1 mg 05/19/24 08:01 Glucagon For I
[2024-05-20 12:00] LABS: Glucose Point of Care 210 mg/dl (65-105)
[2024-05-20] MEDS: INSULIN ASPART (*BKC) 100 UNITS/ML SUB-Q ×2 (12:38→20:17)
[2024-05-20 13:36] LABS: Magnesium 1.9 mg/dL (1.6-2.3)
[2024-05-20 14:00] VITALS: BP 133/54; PULSE 89; RESP 18; TEMP 36.7; O2SAT 100
[2024-05-20 16:53] LABS: Glucose Point of Care 199 mg/dl (65-105)
[2024-05-20] MEDS: TAMSULOSIN HCL 0.4 MG CAPSULE PO (17:35)
[2024-05-20 20:12] LABS: Glucose Point of Care 203 mg/dl (65-105)
[2024-05-20] MEDS: FINASTERIDE 5 MG TABLET PO (20:13)
[2024-05-20] MEDS: ATORVASTATIN 20 MG TABLET PO (20:13)
[2024-05-20] MEDS: QUEtiapine FUMARATE 100 MG TABLET 200 MG PO (20:13)
[2024-05-20] MEDS: CHOLECALCIFEROL 1,000 UNITS TABLET 1000 UNITS PO (20:13)
[2024-05-20 21:15] VITALS: BP 136/57; PULSE 79; RESP 19; TEMP 37.4; O2SAT 97
[2024-05-21] MEDS: SODIUM CHLORIDE 0.9% IV 1,000 ML 125 ML IV CONT (04:42)
[2024-05-21 06:00] VITALS: BP 141/55; PULSE 51; RESP 19; TEMP 36.4; O2SAT 98
[2024-05-21 06:57] LABS: Basophils Absolute Auto 0.1 K/mm3 (0.0-0.1); Basophils Percent Auto 0.6 % (0.2-1.2); Eosinophils Absolute Auto 0.4 K/mm3 (0-0.3); Eosinophils Percent Auto 5.2 % (0-4.4); Hematocrit 34.7 % (42.0-52.0); Hemoglobin 11.4 g/dL (14.0-18.0); Immature Granulocyte Absolute 0.03 K/mm3 (0.00-0.031); Immature Granulocyte Percent A 0.4 % (0-0.5); Lymphocytes Absolute Auto 1.86 K/mm3 (0.9-3.2); Lymphocytes Percent Auto 23.6 % (18.3-44.2); Mean Corpuscular HGB Conc 32.9 g/dl (32-36); Mean Corpuscular Hemoglobin 31.3 pg (26-34); Mean Corpuscular Volume 95.3 fl (80-100); Mean Platelet Volume 9.3 fl (7.4-10.4); Monocytes Absolute Auto 0.8 K/mm3 (0.1-0.6); Monocytes Percent Auto 9.9 % (2.6-8.5); Neutrophils Absolute Auto 4.8 K/mm3 (1.3-6.7); Neutrophils Percent Auto 60.3 % (45.5-73.1); Platelet Count Result 261 k/mm3 (150-375); Red Blood Count 3.64 M/mm3 (4.6-6.20); Red Cell Distribution Width 12.8 % (11.5-14.5); White Blood Count 7.9 K/mm3 (4.5-10.0)
[2024-05-21 07:11] LABS: Alanine Aminotransferase 21 U/L (6-50); Albumin Level 3.7 g/dL (3.5-5.1); Alkaline Phosphatase 115 U/L (38-126); Anion Gap 4 mmol/L (4-12); Aspartate Amino Transferase 29 U/L (17-59); Bilirubin,Total 0.8 mg/dL (0.2-1.3); Blood Urea Nitrogen 11 mg/dL (9-20); Calcium 8.9 mg/dL (8.4-10.2); Carbon Dioxide 30 mmol/L (22-30); Chloride 102 mmol/L (98-107); Estimated CRCL calculation 82 ml/min; Estimated Glomerular Filt Rate > 60; Glucose 183 mg/dL (65-110); Potassium 4.4 mmol/L (3.4-5.0); Sodium 136 mmol/L (137-145)
[2024-05-21 08:00] VITALS: PULSE 51; RESP 19; O2SAT 98
[2024-05-21 08:29] LABS: Glucose Point of Care 146 mg/dl (65-105)
[2024-05-21] MEDS: polyethylene glycoL 3350 17 GM POWD.PACK PO (08:45)
[2024-05-21] MEDS: ESCITALOPRAM OXALATE 10 MG TABLET PO (08:45)
[2024-05-21] MEDS: ACETAMINOPHEN 500 MG TABLET PO ×2 (08:45→18:25)
[2024-05-21] MEDS: QUEtiapine FUMARATE 100 MG TABLET PO ×2 (09:38→18:28)
[2024-05-21] MEDS: QUEtiapine FUMARATE 25 MG TABLET 50 MG PO ×2 (09:38→18:28)
--- NOTE | 2024-05-21 11:28 | PM.IMPN ---
Progress Note: A&P Assessment and Plan (1) Fall: Code(s): W19.XXXA - Unspecified fall, initial encounter Status: Acute Assessment and Plan: left hip MRI showed FINDINGS: Motion artifact is noted, which decreases sensitivity. Alignment is normal. No fracture. There is moderate osteoarthritis of the hips. There is a Wilson catheter in expected position. There is edema in right gluteus favio muscle. There is mild bilateral trochanter bursitis. The prostate is mildly enlarged. IMPRESSION: 1. No fracture. 2. Moderate osteoarthritis of the hips. 3. Edema in right gluteus favio muscle, consistent with mild strain (grade 1). PT/OT working with patient, patient will need a rehab to get stronger before he can return to [facility] at a local [facility]. Awaiting facility acceptance. (2) Insulin dependent type 2 diabetes mellitus: Code(s): E11.9 - Type 2 diabetes mellitus without complications; Z79.4 - intermediate designer (current) use of insulin Status: Acute Assessment and Plan: Follow diabetes protocol ordered. Monitor blood sugars. (3) Dementia: Code(s): F03.90 - Unspecified dementia, unspecified severity, without behavioral disturbance, psychotic disturbance, mood disturbance, and anxiety Status: Acute Assessment and Plan: continue Quetiapine and Escitalopram. (4) Alzheimers disease: Code(s): G30.9 - Alzheimer's disease, unspecified; F02.80 - Dementia in other diseases classified elsewhere, unspecified severity, without behavioral disturbance, psychotic disturbance, mood disturbance, and anxiety Status: Acute Assessment and Plan: continue Quetiapine and Escitalopram. Subjective Date/time seen: 05/21/24 11:28 Interval history: Patient denies chest pain, palpitations, shortness of breath, or pain. Review of Systems Review of Systems: All systems reviewed & are unremarkable except as noted in HPI and below Exam Const: General: comfortable and no acute distress Eyes: Sclera: sclerae normal Resp: Effort & Inspection: normal respiratory effort Auscultation: clear to auscultation bilaterally Cardio: Rate: regular rate Rhythm: regular rhythm Skin: Other: bruising on bilateral arms and scabbed area on the back of left lower arm. Neuro: Other: memory loss Extrem: General: normal to inspection Objective Data Vital Signs Vital Signs: Vital Signs - 24 hr 05/20/24 14:00 05/20/24 21:15 05/20/24 20:00 Temperature 98.0 F 99.4 F Pulse Rate 89 79 Respiratory Rate 18 19 Blood Pressure 133/54 L 136/57 L Pulse Oximetry 100 97 Oxygen Delivery Room Air 05/21/24 06:00 Temperature 97.6 F Pulse Rate 51 L Respiratory Rate 19 Blood Pressure 141/55 H Pulse Oximetry 98 Oxygen Delivery Intake/Output Intake/Output: Intake & Output 05/18/24 05/19/24 05/20/24 05/21/24 23:59 23:59 23:59 23:59 Intake Total 1000 3700 1160 Output Total 900 600 Balance 100 3100 1160 Meds/Results Medications: Active Medications Generic Name Dose Route Start Last Admin Trade Name Freq PRN Reason Stop Dose Admin Acetaminophen 500 mg 05/19/24 09:00 05/21/24 08:45 Acetaminophen 500 Mg Tablet PO 500 mg BID SUZIE Administration Atorvastatin Calcium 20 mg 05/19/24 21:00 05/20/24 20:13 Atorvastatin 20 Mg Tablet PO 20 mg HS SUZIE Administration Benztropine Mesylate 2 mg 05/19/24 07:51 Benztropine Mesylate 1 Mg Tablet PO BID PRN OSTEOARTHRITIS Dextrose 12.5 gm 05/19/24 08:01 Dextrose 50% 25 Gm/50 Ml Syringe IV PUSH PRN PRN Hypoglycemia Protocol Escitalopram Oxalate 10 mg 05/19/24 09:00 05/21/24 08:45 Escitalopram Oxalate 10 Mg Tablet PO 10 mg DAILY SUZIE Administration Finasteride 5 mg 05/19/24 21:00 05/20/24 20:13 Finasteride 5 Mg Tablet PO 5 mg QHS SUZIE Administration Glucagon 1 mg 05/19/24 08:01 Glucagon For Inj 1 Mg Vial IM
[2024-05-21 11:54] LABS: Glucose Point of Care 219 mg/dl (65-105)
[2024-05-21] MEDS: INSULIN ASPART (*BKC) 100 UNITS/ML SUB-Q ×3 (12:39→20:18)
[2024-05-21 14:00] VITALS: BP 126/50; PULSE 55; RESP 16; TEMP 36.3; O2SAT 97
[2024-05-21 16:50] LABS: Glucose Point of Care 208 mg/dl (65-105)
[2024-05-21] MEDS: TAMSULOSIN HCL 0.4 MG CAPSULE PO (18:25)
[2024-05-21] MEDS: CHOLECALCIFEROL 1,000 UNITS TABLET 1000 UNITS PO (20:13)
[2024-05-21] MEDS: ATORVASTATIN 20 MG TABLET PO (20:13)
[2024-05-21] MEDS: QUEtiapine FUMARATE 100 MG TABLET 200 MG PO (20:13)
[2024-05-21] MEDS: FINASTERIDE 5 MG TABLET PO (20:13)
[2024-05-21 20:14] LABS: Glucose Point of Care 261 mg/dl (65-105)
[2024-05-21 20:56] VITALS: BP 143/65; PULSE 93; RESP 18; TEMP 36.5; O2SAT 94
[2024-05-22] MEDS: SODIUM CHLORIDE 0.9% IV 1,000 ML 125 ML IV CONT ×2 (04:40→11:45)
[2024-05-22 06:00] VITALS: BP 145/54; PULSE 98; RESP 18; TEMP 36.4; O2SAT 95
[2024-05-22 06:40] LABS: Basophils Absolute Auto 0.1 K/mm3 (0.0-0.1); Basophils Percent Auto 0.6 % (0.2-1.2); Eosinophils Absolute Auto 0.4 K/mm3 (0-0.3); Eosinophils Percent Auto 4.6 % (0-4.4); Hematocrit 37.1 % (42.0-52.0); Hemoglobin 11.6 g/dL (14.0-18.0); Immature Granulocyte Absolute 0.03 K/mm3 (0.00-0.031); Immature Granulocyte Percent A 0.4 % (0-0.5); Lymphocytes Absolute Auto 1.84 K/mm3 (0.9-3.2); Lymphocytes Percent Auto 21.7 % (18.3-44.2); Mean Corpuscular HGB Conc 31.3 g/dl (32-36); Mean Corpuscular Hemoglobin 30.2 pg (26-34); Mean Corpuscular Volume 96.6 fl (80-100); Mean Platelet Volume 9.3 fl (7.4-10.4); Monocytes Absolute Auto 0.8 K/mm3 (0.1-0.6); Neutrophils Absolute Auto 5.4 K/mm3 (1.3-6.7); Neutrophils Percent Auto 63.7 % (45.5-73.1); Platelet Count Result 293 k/mm3 (150-375); Red Blood Count 3.84 M/mm3 (4.6-6.20); Red Cell Distribution Width 12.7 % (11.5-14.5); White Blood Count 8.5 K/mm3 (4.5-10.0)
[2024-05-22 06:58] LABS: Alanine Aminotransferase 29 U/L (6-50); Albumin Level 3.4 g/dL (3.5-5.1); Alkaline Phosphatase 118 U/L (38-126); Anion Gap 5 mmol/L (4-12); Aspartate Amino Transferase 35 U/L (17-59); Bilirubin,Total 0.6 mg/dL (0.2-1.3); Blood Urea Nitrogen 11 mg/dL (9-20); Calcium 8.8 mg/dL (8.4-10.2); Carbon Dioxide 28 mmol/L (22-30); Chloride 104 mmol/L (98-107); Estimated CRCL calculation 71 ml/min; Estimated Glomerular Filt Rate > 60; Glucose 181 mg/dL (65-110); Potassium 4.4 mmol/L (3.4-5.0); Sodium 137 mmol/L (137-145)
[2024-05-22 07:58] LABS: Glucose Point of Care 172 mg/dl (65-105)
[2024-05-22 08:00] VITALS: RESP 18; O2SAT 95
[2024-05-22] MEDS: ACETAMINOPHEN 500 MG TABLET PO ×2 (08:54→17:03)
[2024-05-22] MEDS: ESCITALOPRAM OXALATE 10 MG TABLET PO (08:54)
[2024-05-22] MEDS: polyethylene glycoL 3350 17 GM POWD.PACK PO (08:54)
[2024-05-22] MEDS: QUEtiapine FUMARATE 100 MG TABLET PO ×2 (08:56→17:03)
[2024-05-22] MEDS: QUEtiapine FUMARATE 25 MG TABLET 50 MG PO ×2 (08:56→17:03)
--- NOTE | 2024-05-22 10:47 | PCOTNOTE ---
Attempted to see pt for OT treatment. Pt is currently sleeping and is unable to stay awake despite both verbal and sternal rubbing. Pt's spouse present and reports that pt has not been able to wake up for her.
--- NOTE | 2024-05-22 11:17 | PM.IMPN ---
Progress Note: A&P Assessment and Plan (1) Fall: Code(s): W19.XXXA - Unspecified fall, initial encounter Status: Acute Assessment and Plan: left hip MRI showed FINDINGS: Motion artifact is noted, which decreases sensitivity. Alignment is normal. No fracture. There is moderate osteoarthritis of the hips. There is a Wilson catheter in expected position. There is edema in right gluteus favio muscle. There is mild bilateral trochanter bursitis. The prostate is mildly enlarged. IMPRESSION: 1. No fracture. 2. Moderate osteoarthritis of the hips. 3. Edema in right gluteus favio muscle, consistent with mild strain (grade 1). PT/OT working with patient, patient will need a rehab to get stronger before he can return to memory care unit at a local [facility]. Awaiting facility acceptance. (2) Insulin dependent type 2 diabetes mellitus: Code(s): E11.9 - Type 2 diabetes mellitus without complications; Z79.4 - termite control servicer (current) use of insulin Status: Acute Assessment and Plan: Follow diabetes protocol ordered. Monitor blood sugars. (3) Dementia: Code(s): F03.90 - Unspecified dementia, unspecified severity, without behavioral disturbance, psychotic disturbance, mood disturbance, and anxiety Status: Acute Assessment and Plan: continue Quetiapine and Escitalopram. (4) Alzheimers disease: Code(s): G30.9 - Alzheimer's disease, unspecified; F02.80 - Dementia in other diseases classified elsewhere, unspecified severity, without behavioral disturbance, psychotic disturbance, mood disturbance, and anxiety Status: Acute Assessment and Plan: continue Quetiapine and Escitalopram. Subjective Date/time seen: 05/22/24 11:17 Interval history: Patient sleepy. Patient denies pain or shortness of breath. Daughter is at the bedside. Review of Systems Review of Systems: All systems reviewed & are unremarkable except as noted in HPI and below Exam Const: General: comfortable and no acute distress Resp: Effort & Inspection: normal respiratory effort Auscultation: clear to auscultation bilaterally Cardio: Rate: regular rate Rhythm: regular rhythm GI: GI Palp: Yes Soft to palpation Auscultation: normal bowel sounds Skin: Other: bruising on bilateral arms and scabbed area on the back of left lower arm. Neuro: Other: Memory loss Extrem: General: normal to inspection Objective Data Vital Signs Vital Signs: Vital Signs - 24 hr 05/21/24 14:00 05/21/24 20:56 05/21/24 20:00 Temperature 97.4 F L 97.7 F Pulse Rate 55 L 93 Respiratory Rate 16 18 Blood Pressure 126/50 L 143/65 H Pulse Oximetry 97 94 Oxygen Delivery Room Air 05/22/24 06:00 05/22/24 08:00 Temperature 97.5 F L Pulse Rate 98 Respiratory Rate 18 18 Blood Pressure 145/54 H Pulse Oximetry 95 95 Oxygen Delivery Room Air Intake/Output Intake/Output: Intake & Output 05/19/24 05/20/24 05/21/24 05/22/24 23:59 23:59 23:59 23:59 Intake Total 1000 3700 2280 220 Output Total 900 600 Balance 100 3100 2280 220 Meds/Results Medications: Active Medications Generic Name Dose Route Start Last Admin Trade Name Freq PRN Reason Stop Dose Admin Acetaminophen 500 mg 05/19/24 09:00 05/22/24 08:54 Acetaminophen 500 Mg Tablet PO 500 mg BID SUZIE Administration Atorvastatin Calcium 20 mg 05/19/24 21:00 05/21/24 20:13 Atorvastatin 20 Mg Tablet PO 20 mg HS SUZIE Administration Benztropine Mesylate 2 mg 05/19/24 07:51 Benztropine Mesylate 1 Mg Tablet PO BID PRN OSTEOARTHRITIS Dextrose 12.5 gm 05/19/24 08:01 Dextrose 50% 25 Gm/50 Ml Syringe IV PUSH PRN PRN Hypoglycemia Protocol Escitalopram Oxalate 10 mg 05/19/24 09:00 05/22/24 08:54 Escitalopram Oxalate 10 Mg Tablet PO 10 mg DAILY SUZIE Administration Finasteride 5 mg 05/19/24 21:00 05/21/24 20:13 Finasteride 5 Mg Tablet PO 5 m
[2024-05-22 11:41] LABS: Glucose Point of Care 243 mg/dl (65-105)
[2024-05-22] MEDS: INSULIN ASPART (*BKC) 100 UNITS/ML SUB-Q ×3 (11:44→20:53)
[2024-05-22 14:00] VITALS: BP 168/79; PULSE 115; RESP 16; TEMP 36.3; O2SAT 100
[2024-05-22 16:55] LABS: Glucose Point of Care 213 mg/dl (65-105)
[2024-05-22] MEDS: TAMSULOSIN HCL 0.4 MG CAPSULE PO (17:03)
[2024-05-22 20:13] LABS: Glucose Point of Care 311 mg/dl (65-105)
[2024-05-22] MEDS: ATORVASTATIN 20 MG TABLET PO (20:53)
[2024-05-22] MEDS: FINASTERIDE 5 MG TABLET PO (20:53)
[2024-05-22] MEDS: QUEtiapine FUMARATE 100 MG TABLET 200 MG PO (20:53)
[2024-05-22] MEDS: CHOLECALCIFEROL 1,000 UNITS TABLET 1000 UNITS PO (20:53)
[2024-05-22 22:00] VITALS: BP 113/68; PULSE 60; RESP 18; TEMP 36.9; O2SAT 98
[2024-05-23] MEDS: SODIUM CHLORIDE 0.9% IV 1,000 ML 125 ML IV CONT (00:47)
[2024-05-23 06:00] VITALS: BP 127/84; PULSE 76; RESP 22; TEMP 36.4; O2SAT 98
[2024-05-23 06:42] LABS: Basophils Percent Auto 0.6 % (0.2-1.2); Eosinophils Absolute Auto 0.5 K/mm3 (0-0.3); Eosinophils Percent Auto 7.8 % (0-4.4); Hematocrit 35.4 % (42.0-52.0); Hemoglobin 11.3 g/dL (14.0-18.0); Immature Granulocyte Absolute 0.02 K/mm3 (0.00-0.031); Immature Granulocyte Percent A 0.3 % (0-0.5); Lymphocytes Absolute Auto 1.94 K/mm3 (0.9-3.2); Lymphocytes Percent Auto 30.7 % (18.3-44.2); Mean Corpuscular HGB Conc 31.9 g/dl (32-36); Mean Corpuscular Hemoglobin 30.5 pg (26-34); Mean Corpuscular Volume 95.4 fl (80-100); Mean Platelet Volume 9.1 fl (7.4-10.4); Monocytes Absolute Auto 0.6 K/mm3 (0.1-0.6); Monocytes Percent Auto 9.4 % (2.6-8.5); Neutrophils Absolute Auto 3.2 K/mm3 (1.3-6.7); Neutrophils Percent Auto 51.2 % (45.5-73.1); Platelet Count Result 296 k/mm3 (150-375); Red Blood Count 3.71 M/mm3 (4.6-6.20); Red Cell Distribution Width 12.8 % (11.5-14.5); White Blood Count 6.3 K/mm3 (4.5-10.0)
[2024-05-23 06:54] LABS: Alanine Aminotransferase 35 U/L (6-50); Albumin Level 3.4 g/dL (3.5-5.1); Alkaline Phosphatase 116 U/L (38-126); Anion Gap 5 mmol/L (4-12); Aspartate Amino Transferase 38 U/L (17-59); Bilirubin,Total 0.6 mg/dL (0.2-1.3); Blood Urea Nitrogen 11 mg/dL (9-20); Calcium 8.5 mg/dL (8.4-10.2); Carbon Dioxide 29 mmol/L (22-30); Chloride 102 mmol/L (98-107); Estimated CRCL calculation 71 ml/min; Estimated Glomerular Filt Rate > 60; Glucose 175 mg/dL (65-110); Sodium 136 mmol/L (137-145)
[2024-05-23 08:09] LABS: Glucose Point of Care 171 mg/dl (65-105)
[2024-05-23] MEDS: QUEtiapine FUMARATE 100 MG TABLET PO ×2 (09:10→18:06)
[2024-05-23] MEDS: ESCITALOPRAM OXALATE 10 MG TABLET PO (09:10)
[2024-05-23] MEDS: polyethylene glycoL 3350 17 GM POWD.PACK PO (09:10)
[2024-05-23] MEDS: QUEtiapine FUMARATE 25 MG TABLET 50 MG PO ×2 (09:10→18:06)
[2024-05-23] MEDS: ACETAMINOPHEN 500 MG TABLET PO ×2 (09:10→18:06)
--- NOTE | 2024-05-23 10:12 | PM.IMPN ---
Progress Note: A&P Assessment and Plan (1) Fall: Code(s): W19.XXXA - Unspecified fall, initial encounter Status: Acute Assessment and Plan: left hip MRI showed FINDINGS: Motion artifact is noted, which decreases sensitivity. Alignment is normal. No fracture. There is moderate osteoarthritis of the hips. There is a Wilson catheter in expected position. There is edema in right gluteus favio muscle. There is mild bilateral trochanter bursitis. The prostate is mildly enlarged. IMPRESSION: 1. No fracture. 2. Moderate osteoarthritis of the hips. 3. Edema in right gluteus favio muscle, consistent with mild strain (grade 1). PT/OT working with patient, patient will need a rehab to get stronger before he can return to memory care unit at a local skilled nursing. Patient accepted to [facility] for rehab. Patient had an unwitnessed fall today unsure if patient hit head, no abrasions or redness noted. Head CT negative- No acute intracranial findings. would like patient observed her overnight before transferring to [facility]. Neuro checks. Bed alarm. (2) Insulin dependent type 2 diabetes mellitus: Code(s): E11.9 - Type 2 diabetes mellitus without complications; Z79.4 - long term acute care registered nurse (current) use of insulin Status: Acute Assessment and Plan: Follow diabetes protocol ordered. Monitor blood sugars. (3) Dementia: Code(s): F03.90 - Unspecified dementia, unspecified severity, without behavioral disturbance, psychotic disturbance, mood disturbance, and anxiety Status: Acute Assessment and Plan: continue Quetiapine and Escitalopram. (4) Alzheimers disease: Code(s): G30.9 - Alzheimer's disease, unspecified; F02.80 - Dementia in other diseases classified elsewhere, unspecified severity, without behavioral disturbance, psychotic disturbance, mood disturbance, and anxiety Status: Acute Assessment and Plan: continue Quetiapine and Escitalopram. Subjective Date/time seen: 05/23/24 10:12 Interval history: Patient denies chest pain, palpitations, shortness of breath, headache, nausea, or vomiting. Patient has been accepted at [facility] for rehab. Patient had an unwitnessed fall today unsure if patient hit head, no abrasions or redness noted. Head CT negative. would like patient observed her overnight before transferring to [facility]. Review of Systems Review of Systems: All systems reviewed & are unremarkable except as noted in HPI and below Exam Const: General: comfortable and no acute distress Eyes: Sclera: sclerae normal Pupils: Equal, round and reactive pupils present Cardio: Rate: regular rate Rhythm: regular rhythm GI: GI Palp: Yes Soft to palpation Auscultation: normal bowel sounds Skin: Other: bruising on bilateral arms and scabbed area on the back of left lower arm. No new bumps or bruises noted after fall today. Neuro: Other: Memory loss- Alzheimer Extrem: General: normal to inspection Objective Data Vital Signs Vital Signs: Vital Signs - 24 hr 05/22/24 14:00 05/22/24 22:00 05/22/24 20:50 Temperature 97.4 F L 98.5 F Pulse Rate 115 H 60 Respiratory Rate 16 18 Blood Pressure 168/79 H 113/68 Pulse Oximetry 100 98 Oxygen Delivery Room Air 05/23/24 06:00 Temperature 97.5 F L Pulse Rate 76 Respiratory Rate 22 H Blood Pressure 127/84 Pulse Oximetry 98 Oxygen Delivery Intake/Output Intake/Output: Intake & Output 05/20/24 05/21/24 05/22/24 05/23/24 23:59 23:59 23:59 23:59 Intake Total 3700 2280 1405.4 1170 Output Total 600 Balance 3100 2280 1405.4 1170 Meds/Results Medications: Active Medications Generic Name Dose Route Start Last Admin Trade Name Freq PRN Reason Stop Dose Admin Acetaminophen 500 mg 05/19/24 09:00 05/23/24 09:10 Acetaminophen 500 Mg Tablet PO 500 mg BID SUZIE Administration Atorvastatin Calcium 20 mg 05/19/24 21:00 05/22/24 20:53
[2024-05-23 11:45] LABS: Glucose Point of Care 202 mg/dl (65-105)
[2024-05-23 11:50] VITALS: BMI 10.0
[2024-05-23 12:43] VITALS: BP 138/78; PULSE 65; RESP 20; TEMP 37.2; O2SAT 100
[2024-05-23 14:00] VITALS: BP 161/67; PULSE 88; RESP 10; TEMP 36.8; O2SAT 100
[2024-05-23 16:42] LABS: Glucose Point of Care 179 mg/dl (65-105)
[2024-05-23] MEDS: TAMSULOSIN HCL 0.4 MG CAPSULE PO (18:06)
[2024-05-23 21:00] VITALS: BP 120/53; PULSE 60; RESP 22; TEMP 36.5; O2SAT 95
[2024-05-23 21:09] LABS: Glucose Point of Care 259 mg/dl (65-105)
[2024-05-23] MEDS: INSULIN ASPART (*BKC) 100 UNITS/ML SUB-Q (21:55)
[2024-05-24] MEDS: SODIUM CHLORIDE 0.9% IV 1,000 ML 125 ML IV CONT (04:23)
[2024-05-24 05:35] VITALS: BP 176/76; PULSE 76; RESP 16; TEMP 36.6; O2SAT 97
[2024-05-24 07:59] LABS: Glucose Point of Care 184 mg/dl (65-105)
[2024-05-24 08:01] LABS: Basophils Percent Auto 0.7 % (0.2-1.2); Eosinophils Absolute Auto 0.4 K/mm3 (0-0.3); Eosinophils Percent Auto 6.8 % (0-4.4); Hematocrit 31.9 % (42.0-52.0); Hemoglobin 10.6 g/dL (14.0-18.0); Immature Granulocyte Absolute 0.01 K/mm3 (0.00-0.031); Immature Granulocyte Percent A 0.2 % (0-0.5); Lymphocytes Absolute Auto 1.77 K/mm3 (0.9-3.2); Lymphocytes Percent Auto 29.3 % (18.3-44.2); Mean Corpuscular HGB Conc 33.2 g/dl (32-36); Mean Corpuscular Hemoglobin 31.1 pg (26-34); Mean Corpuscular Volume 93.5 fl (80-100); Mean Platelet Volume 8.7 fl (7.4-10.4); Monocytes Absolute Auto 0.7 K/mm3 (0.1-0.6); Monocytes Percent Auto 11.1 % (2.6-8.5); Neutrophils Absolute Auto 3.2 K/mm3 (1.3-6.7); Neutrophils Percent Auto 51.9 % (45.5-73.1); Platelet Count Result 264 k/mm3 (150-375); Red Blood Count 3.41 M/mm3 (4.6-6.20); Red Cell Distribution Width 12.8 % (11.5-14.5); White Blood Count 6.1 K/mm3 (4.5-10.0)
[2024-05-24 08:12] LABS: Alanine Aminotransferase 31 U/L (6-50); Albumin Level 3.1 g/dL (3.5-5.1); Alkaline Phosphatase 95 U/L (38-126); Anion Gap 5 mmol/L (4-12); Aspartate Amino Transferase 32 U/L (17-59); Bilirubin,Total 0.5 mg/dL (0.2-1.3); Blood Urea Nitrogen 10 mg/dL (9-20); Calcium 8.4 mg/dL (8.4-10.2); Carbon Dioxide 25 mmol/L (22-30); Chloride 105 mmol/L (98-107); Estimated CRCL calculation 82 ml/min; Estimated Glomerular Filt Rate > 60; Glucose 176 mg/dL (65-110); Sodium 135 mmol/L (137-145)
[2024-05-24] MEDS: QUEtiapine FUMARATE 25 MG TABLET 50 MG PO (08:54)
[2024-05-24] MEDS: ACETAMINOPHEN 500 MG TABLET PO (08:54)
[2024-05-24] MEDS: ESCITALOPRAM OXALATE 10 MG TABLET PO (08:55)
[2024-05-24] MEDS: polyethylene glycoL 3350 17 GM POWD.PACK PO (08:55)
[2024-05-24] MEDS: QUEtiapine FUMARATE 100 MG TABLET PO (08:55)
--- NOTE | 2024-05-24 11:33 | PM.DS ---
DS: Admitting Diagnosis Discharge Date 05/24/24 Admitting Diagnosis Fall DS: Discharge Diagnosis Discharge Diagnosis (1) Fall: Code(s): W19.XXXA - Unspecified fall, initial encounter Status: Acute (2) Dementia: Code(s): F03.90 - Unspecified dementia, unspecified severity, without behavioral disturbance, psychotic disturbance, mood disturbance, and anxiety Status: Acute (3) Weakness: Code(s): R53.1 - Weakness Status: Acute DS: Summary Hospital Course Hospital Course: Patient admitted after a fall. left hip MRI showed FINDINGS:Motion artifact is noted, which decreases sensitivity. Alignment is normal. No fracture. There is moderate osteoarthritis of the hips. There is a Wilson catheter in expected position. There is edema in right gluteus favio muscle. There is mild bilateral trochanter bursitis. The prostate is mildly enlarged. IMPRESSION: 1. No fracture. 2. Moderate osteoarthritis of the hips. 3. Edema in right gluteus favio muscle, consistent with mild strain (grade 1). Patient had a fall on 05/23/24. Head CT negative. Patient to be discharged to [facility] for rehabilitation before returning to [facility]. Status at Discharge Functional status at discharge: uses cane/walker Overall status at discharge: patient is not back to baseline Time Spent with Patient Time attestation: Total time spent providing and/or coordinating discharge services: Time spent: Greater than 30 minutes Exam Const: General: comfortable and no acute distress Eyes: Sclera: sclerae normal Pupils: Equal, round and reactive pupils present Resp: Effort & Inspection: normal respiratory effort Auscultation: clear to auscultation bilaterally Cardio: Rate: regular rate Rhythm: regular rhythm GI: GI Palp: Yes Soft to palpation Auscultation: normal bowel sounds Other: BM today Skin: Other: bruising on bilateral arms and scabbed area on the back of left lower arm and right arm. No new bumps or bruises noted after fall yesterday. Neuro: Other: Memory loss- Alzheimer Extrem: General: normal to inspection DS: Data Data Completed and Pending Labs on day of discharge: Labs from last 24 hours 05/24/24 05/23/24 05/23/24 07:56 21:05 16:36 WBC 6.1 RBC 3.41 L Hgb 10.6 L Hct 31.9 L MCV 93.5 MCH 31.1 MCHC 33.2 RDW 12.8 Plt Count 264 MPV 8.7 Immature Gran % (Auto) 0.2 Neut % (Auto) 51.9 Lymph % (Auto) 29.3 Ellis % (Auto) 11.1 H Eos % (Auto) 6.8 H Baso % (Auto) 0.7 Lymph # (Auto) 1.77 Ellis # (Auto) 0.7 H Eos # (Auto) 0.4 H Baso # (Auto) 0.0 Abs Immat Gran (auto) 0.01 Absolute Neuts (auto) 3.2 Absolute Nucleated RBC 0.000 Nucleated RBC % 0.0 Sodium 135 L Potassium 4.0 Chloride 105 Carbon Dioxide 25 Anion Gap 5 BUN 10 Creatinine 0.60 L Estim Creat Clear Calc 82 Estimated GFR > 60 Glucose 176 H POC Capillary Glucose 184 H 259 H 179 H Calcium 8.4 Total Bilirubin 0.5 AST 32 ALT 31 Alkaline Phosphatase 95 Total Protein 6.0 L Albumin 3.1 L 05/23/24 11:43 WBC RBC Hgb Hct MCV MCH MCHC RDW Plt Count MPV Immature Gran % (Auto) Neut % (Auto) Lymph % (Auto) Ellis % (Auto) Eos % (Auto) Baso % (Auto) Lymph # (Auto) Ellis # (Auto) Eos # (Auto) Baso # (Auto) Abs Immat Gran (auto) Absolute Neuts (auto) Absolute Nucleated RBC Nucleated RBC % Sodium Potassium Chloride Carbon Dioxide Anion Gap BUN Creatinine Estim Creat Clear Calc Estimated GFR Glucose POC Capillary Glucose 202 H Calcium Total Bilirubin AST ALT Alkaline Phosphatase Total Protein Albumin Discharge Plan Discharge Attending physician on discharge: Wes Amor Consulting providers: Landon Hutchins Discharging Clinician: Kailyn Alatorre Anticipated Discharge Date/Time: 1
[2024-05-24 11:58] LABS: Glucose Point of Care 414 mg/dl (65-105)
[2024-05-24] MEDS: INSULIN ASPART (*BKC) 100 UNITS/ML 6 UNITS SUB-Q (12:24)
== END 2024-05-24 13:05 ==
LOC: ANHED 05-19 04:14 → ANH3MEDSUR 05-19 11:45
PROVIDERS: Nurse Practitioner Family; Admitting Provider Internal Medicine; Emergency Provider Emergency Medicine; Visit Provider Student in an Organized Health Care Education/Training Program
DX: S30.0XXA Contusion of lower back and pelvis, initial encounter (principal); R53.1 Weakness; M16.0 Bilateral primary osteoarthritis of hip; M70.62 Trochanteric bursitis, left hip; M70.61 Trochanteric bursitis, right hip; W19.XXXA Unspecified fall, initial encounter; R29.6 Repeated falls; E78.5 Hyperlipidemia, unspecified; E11.8 Type 2 diabetes mellitus with unspecified complications; J84.9 Interstitial pulmonary disease, unspecified; N40.0 Benign prostatic hyperplasia without lower urinary tract symptoms; G30.9 Alzheimer's disease, unspecified; F02.80 Dementia in other diseases classified elsewhere, unspecified severity, without behavioral disturbance, psychotic disturbance, mood disturbance, and anxiety; Z20.822 Contact with and (suspected) exposure to COVID-19; Z87.891 Personal history of nicotine dependence; Z79.4 Long term (current) use of insulin; Z79.84 Long term (current) use of oral hypoglycemic drugs; Z79.899 Other long term (current) drug therapy
CPT/HCPCS: 36415; 70450; 71045; 72192; 73521; 73721; 80053; 81001; 82948; 83735; 85025; 85610; 85730; 87637; 93005; 97110; 97116; 97161; 97166; 97530; 99285; A9270; G0378; J1815; J3475; J7030

== ENCOUNTER 2024-05-28 15:28 | Emergency (ER) | payer OTHER, SELFPAY ==
--- NOTE | ~2024-05-28 | CT_ITS ---
CT brain wo con Ordering provider: Nasim Freeman History: 84 years Male with . fall . Comparison: None. Technique: CT of the head without contrast. Radiation reduction technique utilized. The dose-length product was 1210.67 mGy-cm. FINDINGS: BRAIN PARENCHYMA AND CSF SPACES: Mild leukoaraiosis and diffuse cortical atrophy. Mild atheromatous d isease. Old lacunar infarct in the right thalamus. No midline shift, mass effect or hemorrhage. The brain parenchyma and CSF spaces are otherwise normal. VISUALIZED PARANASAL SINUSES: Well aerated. MASTOIDS: Well aerated. BONES: The bones appear intact. SOFT TISSUES: Visualized nasopharynx is normal. Superficial soft tissues are normal. IMPRESSION: No acute intracranial findings. Reviewed, dictated and finalized at location A.
[2024-05-28 15:30] VITALS: BP 161/66; PULSE 77; RESP 18; TEMP 37.1; O2SAT 97
--- NOTE | 2024-05-28 15:49 | ED.FALL ---
HPI - Fall General Chief Complaint: Fall Stated Complaint: fall Time Seen by Provider: 05/28/24 15:36 History of Present Illness HPI Narrative: 84-year-old male presenting to the emergency department for evaluation for evaluation after having a ground level fall. Patient was in someone else's room when he had a ground level fall. Unsure if he hit his head. Patient denies any pain or injury. Patient is A&Ox1 Related Data Home Medications Medication Instructions Recorded Confirmed cholecalciferol (vitamin D3) 25 25 mcg PO HS 02/25/22 05/25/24 mcg (1,000 unit) tablet (Vitamin D3) tamsulosin 0.4 mg capsule 0.4 mg PO QPM 05/03/23 05/25/24 acetaminophen 500 mg tablet 500 mg PO BID 05/19/24 05/25/24 atorvastatin 20 mg tablet 20 mg PO HS 05/19/24 05/25/24 benztropine 2 mg tablet 2 mg PO BID PRN OSTEOARTHRITIS 05/19/24 05/25/24 cyanocobalamin (vitamin B-12) 100 100 mcg PO DAILY 05/19/24 05/25/24 mcg tablet escitalopram oxalate 10 mg tablet 10 mg PO DAILY 05/19/24 05/25/24 finasteride 5 mg tablet 5 mg PO QHS 05/19/24 05/25/24 insulin aspart U-100 100 unit/mL 4 unit subcut DIRECTED 05/19/24 05/25/24 (3 mL) subcutaneous pen (Novolog FlexPen U-100 Insulin aspart) insulin aspart U-100 100 unit/mL 10 unit subcut DIRECTED 05/19/24 05/25/24 (3 mL) subcutaneous pen (Novolog FlexPen U-100 Insulin aspart) magnesium hydroxide 2,400 mg/10 mL 30 ml PO DAILY PRN MAGNESIUM 05/19/24 05/25/24 oral suspension DEFICIENCY melatonin 3 mg tablet 3 mg PO HS PRN Insomnia 05/19/24 05/25/24 metformin 1,000 mg tablet 1,000 mg PO BIDWMEAL 05/19/24 05/25/24 polyethylene glycol 3350 17 gram 17 g PO DAILY 05/19/24 05/25/24 oral powder packet (Miralax) quetiapine 100 mg tablet 100 mg PO QAM 05/19/24 05/25/24 quetiapine 150 mg tablet 150 mg PO QPM 05/19/24 05/25/24 quetiapine 200 mg tablet 200 mg PO HS 05/19/24 05/25/24 quetiapine 25 mg tablet 25 mg PO Q6H PRN Anxiety 05/19/24 05/25/24 quetiapine 50 mg tablet 50 mg PO DAILY 05/19/24 05/25/24 Allergies Allergy/AdvReac Type Severity Reaction Status Date / Time memantine [From Namenda] Allergy Unknown Verified 05/19/24 05:58 semaglutide Allergy Unknown Verified 05/19/24 05:58 Review of Systems Review of Systems: All systems reviewed & are unremarkable except as noted in HPI and below PMFSH Past Medical History Medical History (Updated 05/28/24 @ 17:03 by Nasim Freeman MD) Benign prostate hyperplasia Dementia Diastolic dysfunction Echo in February 2022 showed normal LV size, mild asymmetric septal hypertrophy, no segmental wall abnormalities, grade 2 diastolic dysfunction, EF 60%. Hyperlipidemia Insulin dependent type 2 diabetes mellitus Interstitial lung disease UIP pattern chronic interstitial lung disease noted on chest CT 02/2022. Kidney stones Surgical History Surgical History History of cataract extraction History of repair of right rotator cuff Family History Family History Sibling Cancer Father Diabetes mellitus Social History Social History Social History: Surrogate medical decision maker: Rona Payne, spouse. Code status: Full code. Smoking packs per day: 1 Smoking cigarettes per day: 20.0 Years smoked: 50 Smoking pack-years: 50.00 Smoking status: Former smoker Tobacco type: cigarettes Alcohol intake: never Substance use: never Substance use type: does not use Lack of Transportation: No Lack of Food: Never True Current Housing: I Have Housing Concerned About Future Housing: No Difficulty Paying Gas/Electric Bills: No Difficulty Paying for Meds: No Currently Unemployed: No Education: High School Diploma/GED Difficulty w/ Childcare or Family Care: No Living arrangements: with family Additional living arrangements comments: Lives with in [place]
--- NOTE | 2024-05-28 17:25 | PC.NURSE ---
Report given to TAZ Ramires at [facility]
[2024-05-28 17:56] VITALS: BP 168/76; PULSE 71; RESP 19; O2SAT 94
== END 2024-05-28 17:58 ==
PROVIDERS: Emergency Provider Emergency Medicine
DX: S09.90XA Unspecified injury of head, initial encounter (principal); W18.30XA Fall on same level, unspecified, initial encounter; Z79.4 Long term (current) use of insulin; F03.90 Unspecified dementia, unspecified severity, without behavioral disturbance, psychotic disturbance, mood disturbance, and anxiety; E78.5 Hyperlipidemia, unspecified; E11.9 Type 2 diabetes mellitus without complications; Z87.891 Personal history of nicotine dependence; I51.89 Other ill-defined heart diseases
CPT/HCPCS: 70450; 99284

== ENCOUNTER 2024-06-27 11:32 | Emergency (ER) | payer OTHER, SELFPAY ==
--- NOTE | ~2024-06-27 | CT_ITS ---
History: Blunt trauma PROCEDURE: CT head without contrast. COMPARISON: 05/28/2024 TECHNIQUE: Axial imaging of the head performed from the skull base to the vertex without IV contrast. Sagittal a nd coronal reformations obtained. DLP: 1210 mGy-cm FINDINGS: The ventricles are dilated, unchanged. The dilatation of the ventricles is proportional to the degree of sulcal prominence, not uncommon in the senescent brain. Decreased attenuation is identified within the periventricular white matter, likely secondary to micr ovascular ischemic disease, in a patient of this age. There is no mass, mass effect or midline shift. There is no abnormal extra-axial fluid collection or intracranial hemorrhage. Visualized paranasal sinuses are clear. The mastoid air cells are well aerated. No acute displaced fractures within the overlying cranium. Impression: No acute intracranial hemorrhage or suspicious mass effect. Reviewed, dictated and finalized at location A. TRICAL ENGINEERING TECHNICIAN Impression: No acute intracranial hemorrhage or suspicious mass effect.
--- NOTE | ~2024-06-27 | CT_ITS ---
CT cervical spine wo con Ordering provider: Gurvinder Grigsby MD History: . Fall . Comparison: None. Technique: CT of the cervical spine was performed without contrast. Sagittal and coronal reformatted images were also obtained and reviewed. Automated exposure control and iterative reconstruction sunil hnique were employed. The dose-length product was 420.81 mGy-cm. FINDINGS: VERTEBRAE: Minimal anterolisthesis at the level of C7-T1. No subluxation or acute fracture. The occip ital condyles are intact. DISC SPACES: Narrowing of the disc C5-C6 and C6-C7. Multilevel facet joint disease in the lower cervi jaylyn area. Multilevel uncovertebral joint osteoarthritic changes. Narrowing of the left foramina at th e level of C4-C5 and C5-C6. Bilateral narrowing at the level of C6-C7 to PARASPINOUS SOFT TISSUES: Normal. IMPRESSION: No acute osseous abnormality cervical spine. Multilevel degenerative disc disease with variable degrees of intervertebral foraminal narrowing. Reviewed, dictated and finalized at location A. MER IMPRESSION: No acute osseous abnormality cervical spine. Multilevel degenerative disc disease with variable degrees of intervertebral fo raminal narrowing.
[2024-06-27 11:33] VITALS: BP 130/91; PULSE 88; RESP 18; TEMP 36.8; O2SAT 98
[2024-06-27 11:51] LABS: Glucose Point of Care 276 mg/dl (65-105)
[2024-06-27 13:11] LABS: Add Urine Microscopic? NO; Appearance Urine Clear (Clear); Basophils Absolute Auto 0.1 K/mm3 (0.0-0.1); Basophils Percent Auto 0.6 % (0.2-1.2); Bilirubin Urine Negative (Negative); Blood Urine Negative (Negative); Color Urine Yellow (Yellow); Eosinophils Absolute Auto 0.3 K/mm3 (0-0.3); Eosinophils Percent Auto 3.2 % (0-4.4); Glucose Urine UA 2+ mg/dL (Negative); Hematocrit 35.2 % (42.0-52.0); Hemoglobin 11.3 g/dL (14.0-18.0); Immature Granulocyte Absolute 0.03 K/mm3 (0.00-0.031); Immature Granulocyte Percent A 0.4 % (0-0.5); Ketones Urine Negative (Negative); Leukocyte Esterase Ur Negative LEU/UL (Negative); Lymphocytes Absolute Auto 1.55 K/mm3 (0.9-3.2); Lymphocytes Percent Auto 19.8 % (18.3-44.2); Mean Corpuscular HGB Conc 32.1 g/dl (32-36); Mean Corpuscular Hemoglobin 30.1 pg (26-34); Mean Corpuscular Volume 93.9 fl (80-100); Mean Platelet Volume 9.5 fl (7.4-10.4); Monocytes Absolute Auto 0.6 K/mm3 (0.1-0.6); Monocytes Percent Auto 8.2 % (2.6-8.5); Neutrophils Absolute Auto 5.3 K/mm3 (1.3-6.7); Neutrophils Percent Auto 67.8 % (45.5-73.1); Nitrate Urine Negative (Negative); Platelet Count Result 243 k/mm3 (150-375); Protein Urine Negative (Negative); Red Blood Count 3.75 M/mm3 (4.6-6.20); Red Cell Distribution Width 12.7 % (11.5-14.5); Specific Grav Ur 1.021 (1.001-1.035); Urobilinogen Urine 0.2 mg/dL (<2.0); White Blood Count 7.8 K/mm3 (4.5-10.0); pH Urine 6.5 (5.0-9.0)
[2024-06-27 13:16] VITALS: BP 105/86; PULSE 61; RESP 14; O2SAT 98
[2024-06-27 13:33] LABS: Alanine Aminotransferase 20 U/L (6-50); Albumin Level 3.6 g/dL (3.5-5.1); Alkaline Phosphatase 126 U/L (38-126); Anion Gap 6 mmol/L (4-12); Aspartate Amino Transferase 20 U/L (17-59); Bilirubin,Total 0.5 mg/dL (0.2-1.3); Blood Urea Nitrogen 17 mg/dL (9-20); Calcium 8.8 mg/dL (8.4-10.2); Carbon Dioxide 31 mmol/L (22-30); Chloride 101 mmol/L (98-107); Estimated CRCL calculation 71 ml/min; Estimated Glomerular Filt Rate > 60; Glucose 228 mg/dL (65-110); Potassium 3.9 mmol/L (3.4-5.0); Sodium 138 mmol/L (137-145)
[2024-06-27 14:00] VITALS: BP 117/68; PULSE 64; RESP 16; O2SAT 98
--- NOTE | 2024-06-27 14:06 | ED_ITS ---
HPI - General Adult General Chief complaint: Fall Stated complaint: fall hit head History of Present Illness HPI narrative: This is an 84-year-old male with severe dementia presenting after an unwitnessed fall. Found on the ground at the memory care unit. He was sent to the ED for evaluation. Patient knows his name but cannot contribute meaningfully to the interview. He denies any pain anywhere Related Data Home Medications Medication Instructions Recorded Confirmed cholecalciferol (vitamin D3) 25 25 mcg PO HS 02/25/22 06/22/24 mcg (1,000 unit) tablet (Vitamin D3) tamsulosin 0.4 mg capsule 0.4 mg PO QPM 05/03/23 06/22/24 acetaminophen 500 mg tablet 500 mg PO BID 05/19/24 06/22/24 atorvastatin 20 mg tablet 20 mg PO HS 05/19/24 06/22/24 benztropine 2 mg tablet 2 mg PO BID PRN OSTEOARTHRITIS 05/19/24 06/22/24 cyanocobalamin (vitamin B-12) 100 100 mcg PO DAILY 05/19/24 06/22/24 mcg tablet escitalopram oxalate 10 mg tablet 10 mg PO DAILY 05/19/24 06/22/24 finasteride 5 mg tablet 5 mg PO QHS 05/19/24 06/22/24 insulin aspart U-100 100 unit/mL 4 unit subcut DIRECTED 05/19/24 06/22/24 (3 mL) subcutaneous pen (Novolog FlexPen U-100 Insulin aspart) insulin aspart U-100 100 unit/mL 10 unit subcut DIRECTED 05/19/24 06/22/24 (3 mL) subcutaneous pen (Novolog FlexPen U-100 Insulin aspart) magnesium hydroxide 2,400 mg/10 mL 30 ml PO DAILY PRN MAGNESIUM 05/19/24 06/22/24 oral suspension DEFICIENCY melatonin 3 mg tablet 3 mg PO HS PRN Insomnia 05/19/24 06/22/24 metformin 1,000 mg tablet 1,000 mg PO BIDWMEAL 05/19/24 06/22/24 polyethylene glycol 3350 17 gram 17 g PO DAILY 05/19/24 06/22/24 oral powder packet (Miralax) quetiapine 100 mg tablet 100 mg PO QAM 05/19/24 06/22/24 quetiapine 150 mg tablet 150 mg PO QPM 05/19/24 06/22/24 quetiapine 200 mg tablet 200 mg PO HS 05/19/24 06/22/24 quetiapine 25 mg tablet 25 mg PO Q6H PRN Anxiety 05/19/24 06/22/24 quetiapine 50 mg tablet 50 mg PO DAILY 05/19/24 06/22/24 Allergies Allergy/AdvReac Type Severity Reaction Status Date / Time memantine [From Namenda] Allergy Unknown Verified 05/19/24 05:58 semaglutide Allergy Unknown Verified 05/19/24 05:58 [facility] Past Medical History Medical History Benign prostate hyperplasia Dementia Diastolic dysfunction Echo in February 2022 showed normal LV size, mild asymmetric septal hypertrophy, no segmental wall abnormalities, grade 2 diastolic dysfunction, EF 60%. Hyperlipidemia Insulin dependent type 2 diabetes mellitus Interstitial lung disease UIP pattern chronic interstitial lung disease noted on chest CT 02/2022. Kidney stones Surgical History Surgical History History of cataract extraction History of repair of right rotator cuff Family History Family History Sibling Cancer Father Diabetes mellitus Social History Social History Social History: Surrogate medical decision maker: Rona Payne, spouse. Code status: Full code. Smoking packs per day: 1 Smoking cigarettes per day: 20.0 Years smoked: 50 Smoking pack-years: 50.00 Smoking status: Former smoker Tobacco type: cigarettes Alcohol intake: never Substance use: never Substance use type: does not use Lack of Transportation: No Lack of Food: Never True Current Housing: I Have Housing Concerned About Future Housing: No Difficulty Paying Gas/Electric Bills: No Difficulty Paying for Meds: No Currently Unemployed: No Education: High School Diploma/GED Difficulty w/ Childcare or Family Care: No Living arrangements: with family Additional living arrangements comments: Lives with in [place]. 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 Spiritual care concerns: No Exam Narrative: APPEARANCE: No apparent distress. Head: atraumatic. EYES: EOMI, NOSE: Atraumatic NECK: Trachea midline RESPIRATORY: No increased rate of breathing, clear to auscultation CARDIOVASCULAR: RRR, ABDOMINAL: Non-distended MUSCULOSKELETAl: head to toe trauma exam did not reveal any deformities or areas of tenderness. NEURO: Alert. Moving 4/4 extremities SKIN:: Warm, dry. Normal color PSYCHIATRIC: Normal affect Course Vital Signs Vital signs: Vital Signs Temperature 98.2 F 06/27/24 11:33 Pulse Rate 88 06/27/24 11:33 Respiratory Rate 18 06/27/24 11:33 Blood Pressure 130/91 H 06/27/24 11:33 Pulse Oximetry 98 06/27/24 11:33 Oxygen Delivery Room Air 06/27/24 11:33 Temperature 98.2 F 06/27/24 11:33 Pulse Rate 88 06/27/24 11:33 Respiratory Rate 18 06/27/24 11:33 Blood Pressure 130/91 H 06/27/24 11:33 Pulse Oximetry 98 06/27/24 11:33 Oxygen Delivery Room Air 06/27/24 11:33 Medical Decision Making [facility] Narrative Medical decision making narrative: -Course: 84-year-old presenting after a ground level fall. CT head and C- spine negative for fracture. Glucose was found to be 276. Rest his laboratory studies within normal limits. Vital signs stable. Patient be discharged back long term. Vital Signs Vital Signs: Vital Signs Temperature 98.2 F 06/27/24 11:33 Pulse Rate 88 06/27/24 11:33 Respiratory Rate 18 06/27/24 11:33 Blood Pressure 130/91 H 06/27/24 11:33 Pulse Oximetry 98 06/27/24 11:33 Oxygen Delivery Room Air 06/27/24 11:33 Temperature 98.2 F 06/27/24 11:33 Pulse Rate 88 06/27/24 11:33 Respiratory Rate 18 06/27/24 11:33 Blood Pressure 130/91 H 06/27/24 11:33 Pulse Oximetry 98 06/27/24 11:33 Oxygen Delivery Room Air 06/27/24 11:33 Lab Data 06/27/24 12:53 06/27/24 12:53 Labs: Lab Results 06/27/24 06/27/24 Range/Units 11:47 12:53 WBC 7.8 (4.5-10.0) K/mm3 RBC 3.75 L (4.6-6.20) M/mm3 Hgb 11.3 L (14.0-18.0) g/dL Hct 35.2 L (42.0-52.0) % MCV 93.9 (80-100) fl MCH 30.1 (26-34) pg MCHC 32.1 (32-36) g/dl RDW 12.7 (11.5-14.5) % Plt Count 243 (150-375) k/mm3 MPV 9.5 (7.4-10.4) fl Immature Gran % (Auto) 0.4 (0-0.5) % Neut % (Auto) 67.8 (45.5-73.1) % Lymph % (Auto) 19.8 (18.3-44.2) % [place] % (Auto) 8.2 (2.6-8.5) % Eos % (Auto) 3.2 (0-4.4) % Baso % (Auto) 0.6 (0.2-1.2) % Lymph # (Auto) 1.55 (0.9-3.2) K/mm3 [place] # (Auto) 0.6 (0.1-0.6) K/mm3 Eos # (Auto) 0.3 (0-0.3) K/mm3 Baso # (Auto) 0.1 (0.0-0.1) K/mm3 Abs Immat Gran (auto) 0.03 (0.00-0.031) K/mm3 Absolute Neuts (auto) 5.3 (1.3-6.7) K/mm3 Absolute Nucleated RBC 0.000 (0.0-0.012) K/mm3 Nucleated RBC % 0.0 (0.0-0.2) % Sodium 138 (137-145) mmol/L Potassium 3.9 (3.4-5.0) mmol/L Chloride 101 (98-107) mmol/L Carbon Dioxide 31 H (22-30) mmol/L Anion Gap 6 (4-12) mmol/L BUN 17 (9-20) mg/dL Creatinine 0.70 (0.7-1.3) mg/dL Estim Creat Clear Calc 71 ml/min Estimated GFR > 60 (59 - ) Glucose 228 H (65-110) mg/dL POC Capillary Glucose 276 H (65-105) mg/dl Calcium 8.8 (8.4-10.2) mg/dL Total Bilirubin 0.5 (0.2-1.3) mg/dL AST 20 (17-59) U/L ALT 20 (6-50) U/L Alkaline Phosphatase 126 (38-126) U/L Total Protein 7.0 (6.3-8.2) g/dL Albumin 3.6 (3.5-5.1) g/dL Urine Color Yellow (Yellow) Urine Appearance Clear (Clear) Urine pH 6.5 (5.0-9.0) Ur Specific [place] 1.021 (1.001-1.035) Urine Protein Negative (Negative) mg/dL Urine Glucose (UA) 2+ H (Negative) mg/dL Urine Ketones Negative (Negative) mg/dL Ur Blood (Man) Negative (Negative) Urine Nitrate Negative (Negative) Urine Bilirubin Negative (Negative) Urine Urobilinogen 0.2 (<2.0) mg/dL Leukocyte Esterase Rfl Negative (Negative) DAVE/UL Discharge Plan Discharge Clinical Impression: Fall, Diabetes mellitus with hyperglycemia Patient Disposition: Home, Self-Care Condition: Stable Instructions: Antibiotic Form, Fall Prevention for Older Adults (ED) Additional Instructions: Please follow-up with your primary care physician for further management. Return if you would like re-evaluation. Prescriptions: No Action cholecalciferol (vitamin D3) [Vitamin D3] 25 mcg (1,000 unit) Tablet 25 mcg PO HS quetiapine 25 mg Tablet 25 mg PO Q6H PRN (Reason: Anxiety) atorvastatin 20 mg Tablet 20 mg PO HS cyanocobalamin (vitamin B-12) 100 mcg Tablet 100 mcg PO DAILY polyethylene glycol 3350 [Miralax] 17 gram Powder In Packet 17 g PO DAILY quetiapine 200 mg Tablet 200 mg PO HS melatonin 3 mg Tablet 3 mg PO HS PRN (Reason: Insomnia) quetiapine 100 mg Tablet 100 mg PO QAM acetaminophen 500 mg Tablet 500 mg PO BID metformin 1,000 mg Tablet 1,000 mg PO BIDWMEAL benztropine 2 mg Tablet 2 mg PO BID PRN (Reason: OSTEOARTHRITIS) finasteride 5 mg Tablet 5 mg PO QHS escitalopram oxalate 10 mg Tablet 10 mg PO DAILY insulin aspart U-100 [Novolog FlexPen U-100 Insulin] 100 unit/mL (3 mL) Insulin Pen 10 unit SUBCUT DIRECTED Rx Instructions: BEFORE BREAKFAST insulin aspart U-100 [Novolog FlexPen U-100 Insulin] 100 unit/mL (3 mL) Insulin Pen 4 unit SUBCUT DIRECTED Rx Instructions: BEFORE SUPPER quetiapine 50 mg Tablet 50 mg PO DAILY magnesium hydroxide 2,400 mg/10 mL Suspension 30 ml PO DAILY PRN (Reason: MAGNESIUM DEFICIENCY) quetiapine 150 mg Tablet 150 mg PO QPM tamsulosin 0.4 mg Capsule 0.4 mg PO QPM Follow-up/Referrals: UNKNOWN,DOCTOR [Primary Care Provider] -
== END 2024-06-27 14:41 ==
PROVIDERS: Emergency Provider Emergency Medicine
DX: S09.90XA Unspecified injury of head, initial encounter (principal); E11.65 Type 2 diabetes mellitus with hyperglycemia; F03.C0 Unspecified dementia, severe, without behavioral disturbance, psychotic disturbance, mood disturbance, and anxiety; I51.89 Other ill-defined heart diseases; E78.5 Hyperlipidemia, unspecified; J84.9 Interstitial pulmonary disease, unspecified; N40.0 Benign prostatic hyperplasia without lower urinary tract symptoms; Z87.891 Personal history of nicotine dependence; Z87.442 Personal history of urinary calculi; Z98.49 Cataract extraction status, unspecified eye; Z79.899 Other long term (current) drug therapy; Z79.84 Long term (current) use of oral hypoglycemic drugs; Z79.4 Long term (current) use of insulin; M50.321 Other cervical disc degeneration at C4-C5 level; W19.XXXA Unspecified fall, initial encounter
CPT/HCPCS: 36415; 70450; 72125; 80053; 81003; 82948; 85025; 99284

== ENCOUNTER 2024-08-01 13:16 | Emergency (ER) | payer OTHER, SELFPAY ==
[2024-08-01] VITALS (44 sets, daily range): BP systolic 99–158; BP diastolic 48–145; PULSE 92–119; RESP 13–27; TEMP 36.7; O2SAT 97–100
--- NOTE | ~2024-08-01 | CT_ITS ---
CT brain wo con Ordering provider: Prisca Bernal MD History: 84 years Male with . AMS . Comparison: June 27, 2024 Technique: CT of the head without contrast. Radiation reduction technique utilized. The dose-length p roduct was 756.67 mGy-cm. FINDINGS: BRAIN PARENCHYMA AND CSF SPACES: Mild leukoaraiosis and diffuse cortical atrophy. Mild atheromatous d isease. Small lacunar infarct in the right thalamus. No midline shift, mass effect or hemorrhage. Th e brain parenchyma and CSF spaces are otherwise normal. VISUALIZED PARANASAL SINUSES: Well aerated. MASTOIDS: Well aerated. BONES: The bones appear intact. SOFT TISSUES: Visualized nasopharynx is normal. Superficial soft tissues are normal. IMPRESSION: No acute intracranial findings. Reviewed, dictated and finalized at location A. [employer]
--- NOTE | ~2024-08-01 | XR_ITS ---
XR chest 1V Ordering provider: Prisca Bernal MD History: 84 years Male with . cough, sob . Comparison: May 18, 2024. FINDINGS: MEDIASTINUM: The cardiac silhouette is slightly enlarged. Congestive raissa. LUNGS: No effusions or pneumothorax. Opacification in the left lung base. Bilateral interstitial dodson ges. OTHER: No free air under the diaphragm. IMPRESSION: Left basilar atelectasis versus pneumonia. Bilateral interstitial changes which may indicate pneumonitis or edema. Reviewed, dictated and finalized at location A. PERSON
--- NOTE | 2024-08-01 13:31 | ECG_ITS ---
Test Date: 2024-08-01 13:39:10 Measurements Intervals [place] Rate: 115 P: 26 UT: 171 QRS: -56 QRSD: 90 T: 26 QT: 319 QTc: 442 Interpretive Statements SINUS TACHYCARDIA WITH OCCASIONAL SUPRAVENTRICULAR PREMATURE COMPLEXES POSSIBLE LEFT ATRIAL ENLARGEMENT [-0.1mV P WAVE IN V1/V2] LEFT ANTERIOR FASCICULAR BLOCK [QRS AXIS <= -45, QR IN I, RS IN II] Poor R wave progression Compared to ECG 05/19/2024 09:08:18 Left anterior fascicular block now present Sinus bradycardia no longer present Sinus arrhythmia no longer present Right-axis deviation no longer present Electronically Signed On 08-02-2024 15:20:09 OFFSET PRESS OPERATOR HELPER by Carmela Solis M.D.
--- NOTE | 2024-08-01 13:54 | ED.GENADULT ---
HPI - General Adult General Chief complaint: Unspecified Stated complaint: twitching to arms and legs Time Seen by Provider: 08/01/24 13:31 History of Present Illness HPI narrative: 84-year-old male with history of dementia presenting with body twitching. He is coming from a nursing facility, he is A&O times 0 at baseline. On my evaluation, he mumbles incoherently but is unable to provide any history. Moving all extremities spontaneously. Related Data Home Medications ?Medication ?Instructions ?Recorded ?Confirmed ?Last Taken ?Type cholecalciferol (vitamin D3) 25 25 mcg PO HS 02/25/22 06/22/24 05/02/23 History mcg (1,000 unit) tablet (Vitamin D3) tamsulosin 0.4 mg capsule 0.4 mg PO QPM 05/03/23 06/22/24 Unknown History acetaminophen 500 mg tablet 500 mg PO BID 05/19/24 06/22/24 Unknown History atorvastatin 20 mg tablet 20 mg PO HS 05/19/24 06/22/24 Unknown History benztropine 2 mg tablet 2 mg PO BID PRN OSTEOARTHRITIS 05/19/24 06/22/24 Unknown History cyanocobalamin (vitamin B-12) 100 100 mcg PO DAILY 05/19/24 06/22/24 Unknown History mcg tablet escitalopram oxalate 10 mg tablet 10 mg PO DAILY 05/19/24 06/22/24 Unknown History finasteride 5 mg tablet 5 mg PO QHS 05/19/24 06/22/24 Unknown History insulin aspart U-100 100 unit/mL 4 unit subcut DIRECTED 05/19/24 06/22/24 Unknown History (3 mL) subcutaneous pen (Novolog FlexPen U-100 Insulin aspart) insulin aspart U-100 100 unit/mL 10 unit subcut DIRECTED 05/19/24 06/22/24 Unknown History (3 mL) subcutaneous pen (Novolog FlexPen U-100 Insulin aspart) magnesium hydroxide 2,400 mg/10 mL 30 ml PO DAILY PRN MAGNESIUM 05/19/24 06/22/24 Unknown History oral suspension DEFICIENCY melatonin 3 mg tablet 3 mg PO HS PRN Insomnia 05/19/24 06/22/24 Unknown History metformin 1,000 mg tablet 1,000 mg PO BIDWMEAL 05/19/24 06/22/24 Unknown History polyethylene glycol 3350 17 gram 17 g PO DAILY 05/19/24 06/22/24 Unknown History oral powder packet (Miralax) quetiapine 100 mg tablet 100 mg PO QAM 05/19/24 06/22/24 Unknown History quetiapine 150 mg tablet 150 mg PO QPM 05/19/24 06/22/24 Unknown History quetiapine 200 mg tablet 200 mg PO HS 05/19/24 06/22/24 Unknown History quetiapine 25 mg tablet 25 mg PO Q6H PRN Anxiety 05/19/24 06/22/24 Unknown History quetiapine 50 mg tablet 50 mg PO DAILY 05/19/24 06/22/24 Unknown History Allergies Allergy/AdvReac Type Severity Reaction Status Date / Time memantine (From Namenda) Allergy Unknown Verified 08/01/24 13:28 semaglutide Allergy Unknown Verified 08/01/24 13:28 Review of Systems Review of Systems: ROS unobtainable: Yes unobtainable due to medical condition and other ( Underlying dementia) [facility] Past Medical History Medical History Diastolic dysfunction Echo in February 2022 showed normal LV size, mild asymmetric septal hypertrophy, no segmental wall abnormalities, grade 2 diastolic dysfunction, EF 60%. Interstitial lung disease UIP pattern chronic interstitial lung disease noted on chest CT 02/2022. Kidney stones Insulin dependent type 2 diabetes mellitus Benign prostate hyperplasia Dementia Hyperlipidemia Surgical History Surgical History History of repair of right rotator cuff History of cataract extraction Family History Family History Sibling Cancer Father Diabetes mellitus Social History Social History Social History: Surrogate medical decision maker: Rona Payne, spouse. Code status: Full code. Smoking packs per day: 1 Smoking cigarettes per day: 20.0 Years smoked: 50 Smoking pack-years: 50.00 Smoking status: Former smoker Tobacco type: cigarettes Alcohol intake: never Substance use: never Substance use type: does not use Lack of Transportation: No Lack of Food: Never True Current Housing: I Have Housing Concerned About Future Housing: No Difficulty Paying Gas/Electric Bills: No Difficulty Paying for Meds: No Currently Unemployed: No Education: High School Diploma/GED Difficulty w/ Childcare or Family Care: No Living arrangements: with family Additional living arrangements comments: Lives with in [place]. 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 Spiritual care concerns: No Exam Narrative: GENERAL: frail, chronically ill-appearing, in no acute distress, mumbles incoherently HEAD: Normocephalic, atraumatic. EYES: PERRLA and EOMI. ENT: Mucous membranes dry NECK: Supple. CHEST: Clear to auscultation. No respiratory distress. HEART: tachycardic, regular rhythm ABDOMEN: Soft, nontender, nondistended. EXTREMITIES: Normal range of motion. No edema. SKIN: Warm, dry, no rash. NEURO: Alert and oriented x0. moves all extremities spontaneously, intermittently follows commands PSYCH: unable to assess Course Vital Signs Vital signs: Vital Signs Respiratory Rate 21 H 08/01/24 13:28 Pulse Oximetry 97 08/01/24 13:28 Temperature 98.1 F 08/01/24 13:34 Pulse Rate 109 H 08/01/24 13:42 Respiratory Rate 18 08/01/24 13:34 Blood Pressure 129/93 H 08/01/24 13:34 Pulse Oximetry 97 08/01/24 13:34 Oxygen Delivery Room Air 08/01/24 13:34 Medical Decision Making [facility] Narrative Medical decision making narrative: 84-year-old male presenting with twitching. Patient initially tachycardic. This improved following IV fluids. Workup shows UTI. Patient has been given a dose of Keflex. Lactic acid was initially elevated but this normalized following [address] brain shows no acute abnormalities. Chest x-ray with left basilar atelectasis. Feel the patient is safe to return to his memory care unit. Will send in for Keflex for the UTI. Recommend PCP follow-up. Discharged in stable condition. Vital Signs Vital Signs: Vital Signs Respiratory Rate 21 H 08/01/24 13:28 Pulse Oximetry 97 08/01/24 13:28 Temperature 98.1 F 08/01/24 13:34 Pulse Rate 109 H 08/01/24 13:42 Respiratory Rate 18 08/01/24 13:34 Blood Pressure 129/93 H 08/01/24 13:34 Pulse Oximetry 97 08/01/24 13:34 Oxygen Delivery Room Air 08/01/24 13:34 Lab Data 08/01/24 14:32 08/01/24 15:59 Labs: Lab Results 08/01/24 08/01/24 08/01/24 Range/Units 14:32 15:13 15:59 WBC 10.6 H (4.5-10.0) K/mm3 RBC 4.27 L (4.6-6.20) M/mm3 Hgb 12.6 L (14.0-18.0) g/dL Hct 39.5 L (42.0-52.0) % MCV 92.5 (80-100) fl MCH 29.5 (26-34) pg MCHC 31.9 L (32-36) g/dl RDW 13.3 (11.5-14.5) % Plt Count 212 (150-375) k/mm3 MPV 9.3 (7.4-10.4) fl Immature Gran % (Auto) 0.4 (0-0.5) % Neut % (Auto) 91.4 H (45.5-73.1) % Lymph % (Auto) 2.1 L (18.3-44.2) % [place] % (Auto) 4.5 (2.6-8.5) % Eos % (Auto) 1.3 (0-4.4) % Baso % (Auto) 0.3 (0.2-1.2) % Lymph # (Auto) 0.22 L (0.9-3.2) K/mm3 [place] # (Auto) 0.5 (0.1-0.6) K/mm3 Eos # (Auto) 0.1 (0-0.3) K/mm3 Baso # (Auto) 0.0 (0.0-0.1) K/mm3 Abs Immat Gran (auto) 0.04 H (0.00-0.031) K/mm3 Absolute Neuts (auto) 9.7 H (1.3-6.7) K/mm3 Absolute Nucleated RBC 0.000 (0.0-0.012) K/mm3 Nucleated RBC % 0.0 (0.0-0.2) % Sodium 142 (137-145) mmol/L Potassium 4.3 (3.4-5.0) mmol/L Chloride 109 H (98-107) mmol/L Carbon Dioxide 26 (22-30) mmol/L Anion Gap 7 (4-12) mmol/L BUN 33 H D (9-20) mg/dL Creatinine 1.10 (0.7-1.3) mg/dL Estim Creat Clear Calc 35 ml/min Estimated GFR > 60 (59 - ) Glucose 84 (65-110) mg/dL Lactic Acid 3.5 H (0.7-2.0) mmol/L Calcium 8.4 (8.4-10.2) mg/dL Total Bilirubin 0.5 (0.2-1.3) mg/dL AST 26 (17-59) U/L ALT 18 (6-50) U/L Alkaline Phosphatase 115 (38-126) U/L Total Creatine Kinase 79 (55-170) U/L Total Protein 7.0 (6.3-8.2) g/dL Albumin 3.7 (3.5-5.1) g/dL Lipase 55 (23-300) U/L Urine Color Yellow (Yellow) Urine Appearance Cloudy H (Clear) Urine pH 5.0 (5.0-9.0) Ur Specific [place] 1.023 (1.001-1.035) Urine Protein Negative (Negative) mg/dL Urine Glucose (UA) Negative (Negative) mg/dL Urine Ketones Trace H (Negative) mg/dL Ur Blood (Man) Negative (Negative) Urine Nitrate Negative (Negative) Urine Bilirubin Negative (Negative) Urine Urobilinogen 0.2 (<2.0) mg/dL Add Ur Microanalysis Reviewed Leukocyte Esterase Rfl Trace H (Negative) DAVE/UL Urine RBC 51-100 H (0-2) /hpf Urine WBC 0-5 (0-3) /hpf Ur Squamous Epith Cells None seen (Few) /hpf Urine Bacteria 4+ H /hpf Urine Casts 0-2 Influenza A (RT-PCR) Negative (Negative) Influenza B (RT-PCR) Negative (Negative) RSV (RT-PCR) Negative (Negative) SARS-CoV-2 RNA (RT-PCR) Negative (Negative) 08/01/24 Range/Units 18:40 WBC (4.5-10.0) K/mm3 RBC (4.6-6.20) M/mm3 Hgb (14.0-18.0) g/dL Hct (42.0-52.0) % MCV (80-100) fl MCH (26-34) pg MCHC (32-36) g/dl RDW (11.5-14.5) % Plt Count (150-375) k/mm3 MPV (7.4-10.4) fl Immature Gran % (Auto) (0-0.5) % Neut % (Auto) (45.5-73.1) % Lymph % (Auto) (18.3-44.2) % [place] % (Auto) (2.6-8.5) % Eos % (Auto) (0-4.4) % Baso % (Auto) (0.2-1.2) % Lymph # (Auto) (0.9-3.2) K/mm3 [place] # (Auto) (0.1-0.6) K/mm3 Eos # (Auto) (0-0.3) K/mm3 Baso # (Auto) (0.0-0.1) K/mm3 Abs Immat Gran (auto) (0.00-0.031) K/mm3 Absolute Neuts (auto) (1.3-6.7) K/mm3 Absolute Nucleated RBC (0.0-0.012) K/mm3 Nucleated RBC % (0.0-0.2) % Sodium (137-145) mmol/L Potassium (3.4-5.0) mmol/L Chloride (98-107) mmol/L Carbon Dioxide (22-30) mmol/L Anion Gap (4-12) mmol/L BUN (9-20) mg/dL Creatinine (0.7-1.3) mg/dL Estim Creat Clear Calc ml/min Estimated GFR (59 - ) Glucose (65-110) mg/dL Lactic Acid 1.9 (0.7-2.0) mmol/L Calcium (8.4-10.2) mg/dL Total Bilirubin (0.2-1.3) mg/dL AST (17-59) U/L ALT (6-50) U/L Alkaline Phosphatase (38-126) U/L Total Creatine Kinase (55-170) U/L Total Protein (6.3-8.2) g/dL Albumin (3.5-5.1) g/dL Lipase (23-300) U/L Urine Color (Yellow) Urine Appearance (Clear) Urine pH (5.0-9.0) Ur Specific [place] (1.001-1.035) Urine Protein (Negative) mg/dL Urine Glucose (UA) (Negative) mg/dL Urine Ketones (Negative) mg/dL Ur Blood (Man) (Negative) Urine Nitrate (Negative) Urine Bilirubin (Negative) Urine Urobilinogen (<2.0) mg/dL Add Ur Microanalysis Leukocyte Esterase Rfl (Negative) DAVE/UL Urine RBC (0-2) /hpf Urine WBC (0-3) /hpf Ur Squamous Epith Cells (Few) /hpf Urine Bacteria /hpf Urine Casts Influenza A (RT-PCR) (Negative) Influenza B (RT-PCR) (Negative) RSV (RT-PCR) (Negative) SARS-CoV-2 RNA (RT-PCR) (Negative) Imaging Data Radiologist's impression: ITS Impressions Head CT 08/01/24 14:11 IMPRESSION: No acute intracranial findings. Chest X-Ray 08/01/24 14:23 IMPRESSION: Left basilar atelectasis versus pneumonia. Bilateral interstitial changes which may indicate pneumonitis or edema. Critical Care Time Critical Care Time Critical Care Time: No Discharge Plan Discharge Clinical Impression: Dementia, UTI (urinary tract infection) Patient Disposition: NH Long-Term/Asst Living Condition: Stable Instructions: Antibiotic Form, Urinary Tract Infection in Men (ED) Additional Instructions: Your workup today shows a urinary tract infection. We have started you on antibiotics, please complete these as prescribed. Follow-up closely with your PCP. If your symptoms worsen or other concerning symptoms arise, please return to the ER. Patient Language: Cambodian Prescriptions: New cephalexin 500 mg capsule 500 mg PO Q12H 7 Days Qty: 14 0RF No Action cholecalciferol (vitamin D3) [Vitamin D3] 25 mcg (1,000 unit) Tablet 25 mcg PO HS quetiapine 25 mg Tablet 25 mg PO Q6H PRN (Reason: Anxiety) atorvastatin 20 mg Tablet 20 mg PO HS cyanocobalamin (vitamin B-12) 100 mcg Tablet 100 mcg PO DAILY polyethylene glycol 3350 [Miralax] 17 gram Powder In Packet 17 g PO DAILY quetiapine 200 mg Tablet 200 mg PO HS melatonin 3 mg Tablet 3 mg PO HS PRN (Reason: Insomnia) quetiapine 100 mg Tablet 100 mg PO QAM acetaminophen 500 mg Tablet 500 mg PO BID metformin 1,000 mg Tablet 1,000 mg PO BIDWMEAL benztropine 2 mg Tablet 2 mg PO BID PRN (Reason: OSTEOARTHRITIS) finasteride 5 mg Tablet 5 mg PO QHS escitalopram oxalate 10 mg Tablet 10 mg PO DAILY insulin aspart U-100 [Novolog FlexPen U-100 Insulin] 100 unit/mL (3 mL) Insulin Pen 10 unit SUBCUT DIRECTED Rx Instructions: BEFORE BREAKFAST insulin aspart U-100 [Novolog FlexPen U-100 Insulin] 100 unit/mL (3 mL) Insulin Pen 4 unit SUBCUT DIRECTED Rx Instructions: BEFORE SUPPER quetiapine 50 mg Tablet 50 mg PO DAILY magnesium hydroxide 2,400 mg/10 mL Suspension 30 ml PO DAILY PRN (Reason: MAGNESIUM DEFICIENCY) quetiapine 150 mg Tablet 150 mg PO QPM tamsulosin 0.4 mg Capsule 0.4 mg PO QPM Follow-up/Referrals: UNKNOWN,DOCTOR [Primary Care Provider] -
[2024-08-01] MEDS: SODIUM CHLORIDE 0.9% IV 1,000 ML 999 ML IV CONT (14:35)
[2024-08-01 14:42] LABS: Basophils Percent Auto 0.3 % (0.2-1.2); Eosinophils Absolute Auto 0.1 K/mm3 (0-0.3); Eosinophils Percent Auto 1.3 % (0-4.4); Hematocrit 39.5 % (42.0-52.0); Hemoglobin 12.6 g/dL (14.0-18.0); Immature Granulocyte Absolute 0.04 K/mm3 (0.00-0.031); Immature Granulocyte Percent A 0.4 % (0-0.5); Lymphocytes Absolute Auto 0.22 K/mm3 (0.9-3.2); Lymphocytes Percent Auto 2.1 % (18.3-44.2); Mean Corpuscular HGB Conc 31.9 g/dl (32-36); Mean Corpuscular Hemoglobin 29.5 pg (26-34); Mean Corpuscular Volume 92.5 fl (80-100); Mean Platelet Volume 9.3 fl (7.4-10.4); Monocytes Absolute Auto 0.5 K/mm3 (0.1-0.6); Monocytes Percent Auto 4.5 % (2.6-8.5); Neutrophils Absolute Auto 9.7 K/mm3 (1.3-6.7); Neutrophils Percent Auto 91.4 % (45.5-73.1); Platelet Count Result 212 k/mm3 (150-375); Red Blood Count 4.27 M/mm3 (4.6-6.20); Red Cell Distribution Width 13.3 % (11.5-14.5); White Blood Count 10.6 K/mm3 (4.5-10.0)
[2024-08-01 15:19] LABS: Influenza A QL RT-PCR Negative (Negative); Influenza B QL RT-PCR Negative (Negative); RSV RNA, RT-PCR Negative (Negative); SARS-CoV-2 RNA PCR Negative (Negative)
[2024-08-01 15:37] LABS: Add Urine Microscopic? YES; Appearance Urine Cloudy (Clear); Bacteria Urine 4+ /hpf; Bilirubin Urine Negative (Negative); Blood Urine Negative (Negative); Color Urine Yellow (Yellow); Glucose Urine UA Negative (Negative); Ketones Urine Trace mg/dL (Negative); Leukocyte Esterase Ur Trace LEU/UL (Negative); Need Manual Microscopic Reviewed; Nitrate Urine Negative (Negative); Non Pathogenic Casts 0-2; Protein Urine Negative (Negative); RBC Urine 51-100 /hpf (0-2); Specific Grav Ur 1.023 (1.001-1.035); Squamous Epithelial Cell Urine None Seen /hpf (Few); Urobilinogen Urine 0.2 mg/dL (<2.0); WBC Urine 0-5 /hpf (0-3)
[2024-08-01 16:16] LABS: Lactic Acid Reflex 3.5 mmol/L (0.7-2.0)
[2024-08-01 16:23] LABS: Alanine Aminotransferase 18 U/L (6-50); Albumin Level 3.7 g/dL (3.5-5.1); Alkaline Phosphatase 115 U/L (38-126); Anion Gap 7 mmol/L (4-12); Aspartate Amino Transferase 26 U/L (17-59); Bilirubin,Total 0.5 mg/dL (0.2-1.3); Blood Urea Nitrogen 33 mg/dL (9-20); Calcium 8.4 mg/dL (8.4-10.2); Carbon Dioxide 26 mmol/L (22-30); Chloride 109 mmol/L (98-107); Estimated CRCL calculation 35 ml/min; Estimated Glomerular Filt Rate > 60; Glucose 84 mg/dL (65-110); Lipase 55 U/L (23-300); Potassium 4.3 mmol/L (3.4-5.0); Sodium 142 mmol/L (137-145)
[2024-08-01 16:29] LABS: Creatine Kinase 79 U/L (55-170)
[2024-08-01] MEDS: CEPHALEXIN 500 MG CAPSULE PO (17:02)
[2024-08-01 19:00] LABS: Lactic Acid Reflex 1.9 mmol/L (0.7-2.0)
[2024-08-01 19:02] LABS: Reflex Lactic Acid Yes or No Add Lactic
== END 2024-08-01 22:16 ==
PROVIDERS: Emergency Provider Emergency Medicine
DX: N39.0 Urinary tract infection, site not specified (principal); F03.90 Unspecified dementia, unspecified severity, without behavioral disturbance, psychotic disturbance, mood disturbance, and anxiety; Z79.4 Long term (current) use of insulin; I50.30 Unspecified diastolic (congestive) heart failure; E11.9 Type 2 diabetes mellitus without complications; E78.5 Hyperlipidemia, unspecified; Z87.891 Personal history of nicotine dependence; Z20.822 Contact with and (suspected) exposure to COVID-19
CPT/HCPCS: 36415; 70450; 71045; 80053; 81001; 82550; 83605; 83690; 85025; 87637; 93005; 96360; 99284; A9270; J7030

== ENCOUNTER 2024-08-02 18:52 | Emergency (ER) | payer OTHER, SELFPAY ==
[2024-08-02 19:13] VITALS: BP 119/81; PULSE 107; RESP 20; TEMP 36.9; O2SAT 96
[2024-08-02 20:49] LABS: Basophils Percent Auto 0.4 % (0.2-1.2); Eosinophils Absolute Auto 0.2 K/mm3 (0-0.3); Eosinophils Percent Auto 2.7 % (0-4.4); Hematocrit 38.5 % (42.0-52.0); Hemoglobin 12.4 g/dL (14.0-18.0); Immature Granulocyte Absolute 0.02 K/mm3 (0.00-0.031); Immature Granulocyte Percent A 0.3 % (0-0.5); Lymphocytes Absolute Auto 1.28 K/mm3 (0.9-3.2); Lymphocytes Percent Auto 19.2 % (18.3-44.2); Mean Corpuscular HGB Conc 32.2 g/dl (32-36); Mean Corpuscular Hemoglobin 29.8 pg (26-34); Mean Corpuscular Volume 92.5 fl (80-100); Mean Platelet Volume 9.2 fl (7.4-10.4); Monocytes Absolute Auto 0.6 K/mm3 (0.1-0.6); Monocytes Percent Auto 8.4 % (2.6-8.5); Neutrophils Absolute Auto 4.6 K/mm3 (1.3-6.7); Platelet Count Result 218 k/mm3 (150-375); Red Blood Count 4.16 M/mm3 (4.6-6.20); Red Cell Distribution Width 13.7 % (11.5-14.5); White Blood Count 6.7 K/mm3 (4.5-10.0)
[2024-08-02 21:00] LABS: Anion Gap 5 mmol/L (4-12); Blood Urea Nitrogen 36 mg/dL (9-20); Calcium 8.4 mg/dL (8.4-10.2); Carbon Dioxide 29 mmol/L (22-30); Chloride 107 mmol/L (98-107); Estimated CRCL calculation 51 ml/min; Estimated Glomerular Filt Rate > 60; Glucose 127 mg/dL (65-110); Potassium 3.9 mmol/L (3.4-5.0); Sodium 141 mmol/L (137-145)
[2024-08-02 22:22] LABS: Add Urine Microscopic? YES; Appearance Urine Clear (Clear); Bacteria Urine 1+ /hpf; Bilirubin Urine Negative (Negative); Blood Urine Negative (Negative); Color Urine Yellow (Yellow); Glucose Urine UA Trace mg/dL (Negative); Ketones Urine 1+ mg/dL (Negative); Leukocyte Esterase Ur Trace LEU/UL (Negative); Need Manual Microscopic Reviewed; Nitrate Urine Negative (Negative); Non Pathogenic Casts 0-2; Protein Urine Trace mg/dL (Negative); RBC Urine 0-2 /hpf (0-2); Specific Grav Ur 1.024 (1.001-1.035); Squamous Epithelial Cell Urine None Seen /hpf (Few); Urobilinogen Urine 0.2 mg/dL (<2.0); WBC Urine 0-5 /hpf (0-3)
--- NOTE | 2024-08-02 22:52 | ED_ITS ---
HPI - General Adult General Chief complaint: Seizure Stated complaint: seizure Time Seen by Provider: 08/02/24 18:59 Source: EMS Mode of arrival: EMS Limitations: dementia History of Present Illness HPI narrative: 84-year-old with a history of dementia, BPH, was sent from snf for possible seizure-like activity. As per the EMS patient has been having fasciculations in the right forearm. He has no known history of seizure he was seen last night for the same and was diagnosed with UTI , no H/O fever.. Onset (ago): day(s) (2) Severity: mild Related Data Home Medications ?Medication ?Instructions ?Recorded ?Confirmed ?Last Taken ?Type cholecalciferol (vitamin D3) 25 25 mcg PO HS 02/25/22 06/22/24 05/02/23 History mcg (1,000 unit) tablet (Vitamin D3) tamsulosin 0.4 mg capsule 0.4 mg PO QPM 05/03/23 06/22/24 Unknown History acetaminophen 500 mg tablet 500 mg PO BID 05/19/24 06/22/24 Unknown History atorvastatin 20 mg tablet 20 mg PO HS 05/19/24 06/22/24 Unknown History benztropine 2 mg tablet 2 mg PO BID PRN OSTEOARTHRITIS 05/19/24 06/22/24 Unknown History cyanocobalamin (vitamin B-12) 100 100 mcg PO DAILY 05/19/24 06/22/24 Unknown History mcg tablet escitalopram oxalate 10 mg tablet 10 mg PO DAILY 05/19/24 06/22/24 Unknown History finasteride 5 mg tablet 5 mg PO QHS 05/19/24 06/22/24 Unknown History insulin aspart U-100 100 unit/mL 4 unit subcut DIRECTED 05/19/24 06/22/24 Unknown History (3 mL) subcutaneous pen (Novolog FlexPen U-100 Insulin aspart) insulin aspart U-100 100 unit/mL 10 unit subcut DIRECTED 05/19/24 06/22/24 Unknown History (3 mL) subcutaneous pen (Novolog FlexPen U-100 Insulin aspart) magnesium hydroxide 2,400 mg/10 mL 30 ml PO DAILY PRN MAGNESIUM 05/19/24 06/22/24 Unknown History oral suspension DEFICIENCY melatonin 3 mg tablet 3 mg PO HS PRN Insomnia 05/19/24 06/22/24 Unknown History metformin 1,000 mg tablet 1,000 mg PO BIDWMEAL 05/19/24 06/22/24 Unknown History polyethylene glycol 3350 17 gram 17 g PO DAILY 05/19/24 06/22/24 Unknown History oral powder packet (Miralax) quetiapine 100 mg tablet 100 mg PO QAM 05/19/24 06/22/24 Unknown History quetiapine 150 mg tablet 150 mg PO QPM 05/19/24 06/22/24 Unknown History quetiapine 200 mg tablet 200 mg PO HS 05/19/24 06/22/24 Unknown History quetiapine 25 mg tablet 25 mg PO Q6H PRN Anxiety 05/19/24 06/22/24 Unknown History quetiapine 50 mg tablet 50 mg PO DAILY 05/19/24 06/22/24 Unknown History Allergies Allergy/AdvReac Type Severity Reaction Status Date / Time memantine (From Namenda) Allergy Unknown Verified 08/01/24 13:28 semaglutide Allergy Unknown Verified 08/01/24 13:28 Review of Systems 2 Review of Systems: ROS unobtainable: Yes other (dementia) [facility] Past Medical History Medical History Diastolic dysfunction Echo in February 2022 showed normal LV size, mild asymmetric septal hypertrophy, no segmental wall abnormalities, grade 2 diastolic dysfunction, EF 60%. Interstitial lung disease UIP pattern chronic interstitial lung disease noted on chest CT 02/2022. Kidney stones Insulin dependent type 2 diabetes mellitus Benign prostate hyperplasia Dementia Hyperlipidemia Surgical History Surgical History History of repair of right rotator cuff History of cataract extraction Family History Family History Sibling Cancer Father Diabetes mellitus Social History Social History Social History: Surrogate medical decision maker: Rona Elmer, spouse. Code status: Full code. Smoking packs per day: 1 Smoking cigarettes per day: 20.0 Years smoked: 50 Smoking pack-years: 50.00 Smoking status: Former smoker Tobacco type: cigarettes Alcohol intake: never Substance use: never Substance use type: does not use Lack of Transportation: No Lack of Food: Never True Current Housing: I Have Housing Concerned About Future Housing: No Difficulty Paying Gas/Electric Bills: No Difficulty Paying for Meds: No Currently Unemployed: No Education: High School Diploma/GED Difficulty w/ Childcare or Family Care: No Living arrangements: with family Additional living arrangements comments: Lives with in [place]. 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 Spiritual care concerns: No Exam 2 Narrative: GENERAL: Well-appearing, well-nourished, and in no acute distress. HEAD: Normocephalic, atraumatic. EYES: PERRLA and EOMI. ENT: Nares clear . Mucous membranes moist. NECK: Supple. CHEST: Clear to auscultation. No respiratory distress. HEART: Regular rate and rhythm. No murmur heard. Normal peripheral pulses. ABDOMEN: Soft, nontender, nondistended, normal active bowel sounds. EXTREMITIES: Normal range of motion. No edema. SKIN: Warm, dry, no rash. NEURO: No focal deficits. Alert and oriented PSYCH: Normal mood and affect. Course Course Emergency Course: Patient remained stable he had no further jerky movement here in the ER. I did inform his about his lab work. This does not appear to be like a seizure appears to be like myoclonic jerks. I advised him to continue home medication Vital Signs Vital signs: Vital Signs Temperature 36.9 C 08/02/24 19:13 Pulse Rate 107 H 08/02/24 19:13 Respiratory Rate 20 08/02/24 19:13 Blood Pressure 119/81 08/02/24 19:13 Pulse Oximetry 96 08/02/24 19:13 Oxygen Delivery Room Air 08/02/24 19:13 Temperature 36.9 C 08/02/24 19:13 Pulse Rate 107 H 08/02/24 19:13 Respiratory Rate 20 08/02/24 19:13 Blood Pressure 119/81 08/02/24 19:13 Pulse Oximetry 96 08/02/24 19:13 Oxygen Delivery Room Air 08/02/24 19:44 Medical Decision Making Differential Diagnosis Differential Diagnosis: Focal seizures, fasciculations, myoclonic jerks. Medical Records Medical records reviewed: Yes I reviewed the external patient's medical records. Vital Signs Vital Signs: Vital Signs Temperature 36.9 C 08/02/24 19:13 Pulse Rate 107 H 08/02/24 19:13 Respiratory Rate 20 08/02/24 19:13 Blood Pressure 119/81 08/02/24 19:13 Pulse Oximetry 96 08/02/24 19:13 Oxygen Delivery Room Air 08/02/24 19:13 Temperature 36.9 C 08/02/24 19:13 Pulse Rate 107 H 08/02/24 19:13 Respiratory Rate 20 08/02/24 19:13 Blood Pressure 119/81 08/02/24 19:13 Pulse Oximetry 96 08/02/24 19:13 Oxygen Delivery Room Air 08/02/24 19:44 Lab Data 08/02/24 20:43 08/02/24 20:43 Labs: Lab Results 08/02/24 08/02/24 08/02/24 Range/Units 20:43 21:59 22:08 WBC 6.7 (4.5-10.0) K/mm3 RBC 4.16 L (4.6-6.20) M/mm3 Hgb 12.4 L (14.0-18.0) g/dL Hct 38.5 L (42.0-52.0) % MCV 92.5 (80-100) fl MCH 29.8 (26-34) pg MCHC 32.2 (32-36) g/dl RDW 13.7 (11.5-14.5) % Plt Count 218 (150-375) k/mm3 MPV 9.2 (7.4-10.4) fl Immature Gran % (Auto) 0.3 (0-0.5) % Neut % (Auto) 69.0 (45.5-73.1) % Lymph % (Auto) 19.2 (18.3-44.2) % [place] % (Auto) 8.4 (2.6-8.5) % Eos % (Auto) 2.7 (0-4.4) % Baso % (Auto) 0.4 (0.2-1.2) % Lymph # (Auto) 1.28 (0.9-3.2) K/mm3 [place] # (Auto) 0.6 (0.1-0.6) K/mm3 Eos # (Auto) 0.2 (0-0.3) K/mm3 Baso # (Auto) 0.0 (0.0-0.1) K/mm3 Abs Immat Gran (auto) 0.02 (0.00-0.031) K/mm3 Absolute Neuts (auto) 4.6 (1.3-6.7) K/mm3 Absolute Nucleated RBC 0.000 (0.0-0.012) K/mm3 Nucleated RBC % 0.0 (0.0-0.2) % Sodium 141 (137-145) mmol/L Potassium 3.9 (3.4-5.0) mmol/L Chloride 107 (98-107) mmol/L Carbon Dioxide 29 (22-30) mmol/L Anion Gap 5 (4-12) mmol/L BUN 36 H (9-20) mg/dL Creatinine 0.90 (0.7-1.3) mg/dL Estim Creat Clear Calc 51 ml/min Estimated GFR > 60 (59 - ) Glucose 127 H (65-110) mg/dL Lactic Acid Pending Calcium 8.4 (8.4-10.2) mg/dL Urine Color Yellow (Yellow) Urine Appearance Clear (Clear) Urine pH 5.0 (5.0-9.0) Ur Specific [place] 1.024 (1.001-1.035) Urine Protein Trace (Negative) mg/dL Urine Glucose (UA) Trace H (Negative) mg/dL Urine Ketones 1+ H (Negative) mg/dL Ur Blood (Man) Negative (Negative) Urine Nitrate Negative (Negative) Urine Bilirubin Negative (Negative) Urine Urobilinogen 0.2 (<2.0) mg/dL Add Ur Microanalysis Reviewed Leukocyte Esterase Rfl Trace H (Negative) DAVE/UL Urine RBC 0-2 (0-2) /hpf Urine WBC 0-5 (0-3) /hpf Ur Squamous Epith Cells None seen (Few) /hpf Urine Bacteria 1+ H /hpf Urine Casts 0-2 Discharge Plan Discharge Clinical Impression: Myoclonic jerking Patient Disposition: Home, Self-Care Condition: Stable Instructions: Tremors (ED) Additional Instructions: Continue home medications, follow with the primary doctor Patient Language: Albanian Prescriptions: No Action cholecalciferol (vitamin D3) [Vitamin D3] 25 mcg (1,000 unit) Tablet 25 mcg PO HS quetiapine 25 mg Tablet 25 mg PO Q6H PRN (Reason: Anxiety) atorvastatin 20 mg Tablet 20 mg PO HS cyanocobalamin (vitamin B-12) 100 mcg Tablet 100 mcg PO DAILY polyethylene glycol 3350 [Miralax] 17 gram Powder In Packet 17 g PO DAILY quetiapine 200 mg Tablet 200 mg PO HS melatonin 3 mg Tablet 3 mg PO HS PRN (Reason: Insomnia) quetiapine 100 mg Tablet 100 mg PO QAM acetaminophen 500 mg Tablet 500 mg PO BID metformin 1,000 mg Tablet 1,000 mg PO BIDWMEAL benztropine 2 mg Tablet 2 mg PO BID PRN (Reason: OSTEOARTHRITIS) finasteride 5 mg Tablet 5 mg PO QHS escitalopram oxalate 10 mg Tablet 10 mg PO DAILY insulin aspart U-100 [Novolog FlexPen U-100 Insulin] 100 unit/mL (3 mL) Insulin Pen 10 unit SUBCUT DIRECTED Rx Instructions: BEFORE BREAKFAST insulin aspart U-100 [Novolog FlexPen U-100 Insulin] 100 unit/mL (3 mL) Insulin Pen 4 unit SUBCUT DIRECTED Rx Instructions: BEFORE SUPPER quetiapine 50 mg Tablet 50 mg PO DAILY magnesium hydroxide 2,400 mg/10 mL Suspension 30 ml PO DAILY PRN (Reason: MAGNESIUM DEFICIENCY) quetiapine 150 mg Tablet 150 mg PO QPM cephalexin 500 mg capsule 500 mg PO Q12H 7 Days Qty: 14 0RF tamsulosin 0.4 mg Capsule 0.4 mg PO QPM Follow-up/Referrals: UNKNOWN,DOCTOR [Primary Care Provider] - Mathew Thompson MD [Physician] - Time of Disposition: 23:01
--- NOTE | 2024-08-02 22:57 | PC.NURSE ---
multiple attempts made to obtain lactic acid - phlebotomy contacted to have them attempt to obtain sample
== END 2024-08-03 03:23 ==
PROVIDERS: Emergency Provider Family Medicine
DX: G25.3 Myoclonus (principal); Z87.442 Personal history of urinary calculi; E11.9 Type 2 diabetes mellitus without complications; Z79.4 Long term (current) use of insulin; F03.90 Unspecified dementia, unspecified severity, without behavioral disturbance, psychotic disturbance, mood disturbance, and anxiety; E78.5 Hyperlipidemia, unspecified
CPT/HCPCS: 36415; 80048; 81001; 85025; 99283